=== PATIENT | male | born 1965 | race Caucasian/White ===

== ENCOUNTER 2018-01-13 12:39 | Emergency (ER) | payer OTHER ==
[~2018-01-13] VITALS: Ht 188 cm; Wt 127.0 kg
[~2018-01-13 12:39] MED LIST: AMLO5 PO; ASPI81CH PO; ATOR10 PO; BUME2 PO; CEPH500 PO; CLAR500CR; CLON.1 PO; DIAZ2 PO; FENO145 PO; FISH1000 PO; FOLI1 PO; HYDACE10B PO; HYDR10 PO; HYDRA25 PO; Hair, Skin & N1 EACH; Humalog100 UNIT/1; INSULANPEN SC; IRBE150 PO; Isosorbide Mono60 MG PO; LAMO100 PO; METO50 PO; NEBI10 PO; NIFE60ER PO; NIFE90ER PO; POTCHL20ER PO; ROSU10TA PO; TERA5 PO; TERB250 PO; TORSE20
[2018-01-13] MEDS ORDERED: SPIR25 PO (13:25)
[2018-01-13] MEDS ORDERED: ACET325 PO (14:05)
[2018-01-13] MEDS ORDERED: Humalog100 UNIT/1 (14:08)
[2018-01-13 14:11] LABS: BASOPHILS ABSOLUTE AUTO 0.03 K/mm3 (0.00-0.23); BASOPHILS PERCENT AUTO 0 % (0-2); EOSINOPHILS ABSOLUTE AUTO 0.21 K/mm3 (0.00-0.68); EOSINOPHILS PERCENT AUTO 3 % (0-6); Hematocrit 38.3 % (37.0-53.0); Hemoglobin 13.4 g/dL (13.5-17.5); IMMATURE GRAN ABSOLUTE AUTO 0.02 K/mm3 (0.00-0.10); IMMATURE GRAN PERCENT AUTO 0 % (0-1); LYMPHOCYTES ABSOLUTE AUTO 1.56 K/mm3 (0.84-5.20); LYMPHOCYTES PERCENT AUTO 23 % (21-46); MONOCYTES ABSOLUTE AUTO 0.73 K/mm3 (0.16-1.47); MONOCYTES PERCENT AUTO 11 % (4-13); Mean Corpuscular HGB 29.3 pg (26.0-34.0); Mean Corpuscular Volume 84 fL (80-100); Mean Platelet Volume 9.3 fL (9.1-12.4); NEUTROPHILS ABSOLUTE AUTO 4.29 K/mm3 (1.96-9.15); NEUTROPHILS PERCENT AUTO 63 % (41-73); Platelet Count 316 K/mm3 (150-400); RDW Coefficient Variation 12.9 % (11.7-14.2); Red Blood Cell Count 4.58 M/mm3 (4.30-5.90); White Blood Cell Count 6.84 K/mm3 (4.00-11.30)
[2018-01-13 14:30] LABS: Albumin, Blood 2.4 g/dL (3.4-5.0); Albumin/Globulin Ratio 0.6 (0.8-1.8); Bilirubin, Total 0.2 mg/dL (0.1-1.0); Bun/Creatinine Ratio 9.9 (12.0-20.0); Calcium, Blood 7.7 mg/dL (8.5-10.1); Creatinine, Blood 1.42 mg/dL (0.60-1.20); Globulin, Blood 3.8 g/dL (2.2-4.0); Potassium, Blood 2.8 mmol/L (3.5-5.5); Total Protein, Blood 6.2 g/dL (6.4-8.2); Troponin I 0.166 ng/mL (0.000-0.040)
[2018-01-13] MEDS ORDERED: Vistaril25 MG PO (16:37)
[2018-01-13] MEDS ORDERED: Triamcinolone A15 G2 EXT (16:37)
== END 2018-01-13 16:42 | disposition home or self-care (01) ==
LOC: ER 12:39
PROVIDERS: Emergency Medicine
DX: R60.0 Localized edema (principal); R21 Rash and other nonspecific skin eruption; E87.6 Hypokalemia; I11.0 Hypertensive heart disease with heart failure; I50.9 Heart failure, unspecified; E11.9 Type 2 diabetes mellitus without complications; F32.9 Major depressive disorder, single episode, unspecified; Z88.8 Allergy status to other drugs, medicaments and biological substances; Z79.899 Other long term (current) drug therapy; Z79.4 Long term (current) use of insulin
CPT/HCPCS: 36415; 71046; 80053; 83880; 84484; 85025; 93005; 93010; 96374; 99284; J0360

== ENCOUNTER 2019-04-05 11:26 | Emergency (ER) | payer OTHER ==
[~2019-04-05] VITALS: Ht 190.5 cm; Wt 131.1 kg
[~2019-04-05 11:26] MED LIST changes: +ACET325 PO; +SPIR25 PO; +Triamcinolone A15 G2 EXT; +Vistaril25 MG PO
[2019-04-05 11:55] LABS: BASOPHILS ABSOLUTE AUTO 0.03 K/mm3 (0.00-0.23); BASOPHILS PERCENT AUTO 0 % (0-2); EOSINOPHILS ABSOLUTE AUTO 0.12 K/mm3 (0.00-0.68); EOSINOPHILS PERCENT AUTO 2 % (0-6); Hematocrit 35.5 % (37.0-53.0); Hemoglobin 11.9 g/dL (13.5-17.5); IMMATURE GRAN ABSOLUTE AUTO 0.02 K/mm3 (0.00-0.10); IMMATURE GRAN PERCENT AUTO 0 % (0-1); LYMPHOCYTES ABSOLUTE AUTO 1.25 K/mm3 (0.84-5.20); LYMPHOCYTES PERCENT AUTO 18 % (21-46); MONOCYTES PERCENT AUTO 9 % (4-13); Mean Corpuscular HGB 29.1 pg (26.0-34.0); Mean Corpuscular HGB Conc 33.5 g/dL (31.5-36.5); Mean Corpuscular Volume 87 fL (80-100); Mean Platelet Volume 8.9 fL (9.1-12.4); NEUTROPHILS ABSOLUTE AUTO 5.05 K/mm3 (1.96-9.15); NEUTROPHILS PERCENT AUTO 71 % (41-73); Platelet Count 305 K/mm3 (150-400); RDW Coefficient Variation 12.9 % (11.7-14.2); RDW Standard Deviation 40.3 fL (35.1-46.3); Red Blood Cell Count 4.09 M/mm3 (4.30-5.90); White Blood Cell Count 7.07 K/mm3 (4.00-11.30)
[2019-04-05 12:17] LABS: Albumin, Blood 2.3 g/dL (3.4-5.0); Albumin/Globulin Ratio 0.6 (0.8-1.8); Bilirubin, Total 0.3 mg/dL (0.1-1.0); Bun/Creatinine Ratio 14.7 (12.0-20.0); Calcium, Blood 8.4 mg/dL (8.5-10.1); Creatinine, Blood 1.7 mg/dL (0.60-1.20); Globulin, Blood 3.6 g/dL (2.2-4.0); Potassium, Blood 4.1 mmol/L (3.5-5.5); Total Protein, Blood 5.9 g/dL (6.4-8.2)
== END 2019-04-05 14:38 | disposition home or self-care (01) ==
LOC: ER 11:26
PROVIDERS: Physician Assistant
DX: I50.9 Heart failure, unspecified (principal); I11.0 Hypertensive heart disease with heart failure; E11.9 Type 2 diabetes mellitus without complications; F32.9 Major depressive disorder, single episode, unspecified; Z88.8 Allergy status to other drugs, medicaments and biological substances; Z79.899 Other long term (current) drug therapy; Z79.4 Long term (current) use of insulin
CPT/HCPCS: 36415; 70450; 71046; 80053; 83880; 85025; 93005; 93010; 99285-25

== ENCOUNTER 2019-04-18 11:23 | Emergency (ER) | payer OTHER ==
[~2019-04-18] VITALS: Ht 193 cm; Wt 131.5 kg
[~2019-04-18 11:23] MED LIST changes: +FISH OIL 1,001000 MG PO; -FISH1000 PO; +Humalog100 UNIT/1 SC; +Hytrin1 MG PO; -TERA5 PO; -TORSE20; +TORSE20 PO
[2019-04-18 12:03] LABS: BASOPHILS ABSOLUTE AUTO 0.02 K/mm3 (0.00-0.23); BASOPHILS PERCENT AUTO 0 % (0-2); EOSINOPHILS ABSOLUTE AUTO 0.05 K/mm3 (0.00-0.68); EOSINOPHILS PERCENT AUTO 1 % (0-6); Hematocrit 40.4 % (37.0-53.0); Hemoglobin 13.4 g/dL (13.5-17.5); IMMATURE GRAN ABSOLUTE AUTO 0.03 K/mm3 (0.00-0.10); IMMATURE GRAN PERCENT AUTO 0 % (0-1); LYMPHOCYTES ABSOLUTE AUTO 0.76 K/mm3 (0.84-5.20); LYMPHOCYTES PERCENT AUTO 9 % (21-46); MONOCYTES PERCENT AUTO 7 % (4-13); Mean Corpuscular HGB 28.6 pg (26.0-34.0); Mean Corpuscular HGB Conc 33.2 g/dL (31.5-36.5); Mean Corpuscular Volume 86 fL (80-100); Mean Platelet Volume 9.3 fL (9.1-12.4); NEUTROPHILS PERCENT AUTO 82 % (41-73); Platelet Count 384 K/mm3 (150-400); RDW Coefficient Variation 12.8 % (11.7-14.2); RDW Standard Deviation 39.8 fL (35.1-46.3); Red Blood Cell Count 4.68 M/mm3 (4.30-5.90); White Blood Cell Count 8.06 K/mm3 (4.00-11.30)
[2019-04-18 12:17] LABS: International Normalized Ratio 0.96; Prothrombin Time Results 10.2 Sec (9.7-11.5)
[2019-04-18 12:23] LABS: Alanine Aminotransfer (ALT/SGP 40 U/L (12-78); Albumin, Blood 2.7 g/dL (3.4-5.0); Albumin/Globulin Ratio 0.7 (0.8-1.8); Alk Phos 55 U/L (50-136); Anion Gap 7 mmol/L (6-16); Aspartate Aminotrans (AST/SGOT 44 U/L (12-37); Bilirubin, Total 0.3 mg/dL (0.1-1.0); Blood Urea Nitrogen 25 mg/dL (8-24); Bun/Creatinine Ratio 19.2 (12.0-20.0); CO2, Blood 28 mmol/L (21-32); Calcium, Blood 9.2 mg/dL (8.5-10.1); Chloride, Blood 112 mmol/L (98-108); Glomerular Filtration Rate >60 (60-); Glucose, Blood 53 mg/dL (70-99); Potassium, Blood 3.8 mmol/L (3.5-5.5); Sodium, Blood 147 mmol/L (136-145); Total Protein, Blood 6.7 g/dL (6.4-8.2)
[2019-04-18 12:29] LABS: Source, Urine Clean Catch
[2019-04-18 12:34] LABS: Appearance, Urine Clear (Clear); Bilirubin, Urine Neg (Neg); Blood, Urine 4+ (Neg); Color, Urine Yellow (P-Yellow); Glucose Qualitative, Urine Neg (Neg); Ketones, Urine Neg (Neg); Leukocyte Esterase, Urine Neg (Neg); Nitrite, Urine Neg (Neg); Protein, Urine 3+ (Neg); Urobilinogen, Urine NORM (Normal)
[2019-04-18 12:46] LABS: White Blood Cells, Urine 0-2 /hpf (0-5)
[2019-04-18 12:47] LABS: Bacteria Not Seen /hpf; Squamous Epithelial Cells Not Seen /hpf (Few)
[2019-04-18] MEDS ORDERED: TORSE20 PO (12:57)
== END 2019-04-18 14:16 | disposition home or self-care (01) ==
LOC: ER 11:23
PROVIDERS: Emergency Medicine
DX: E11.649 Type 2 diabetes mellitus with hypoglycemia without coma (principal); Z86.73 Personal history of transient ischemic attack (TIA), and cerebral infarction without residual deficits; I11.0 Hypertensive heart disease with heart failure; I50.9 Heart failure, unspecified; Z88.8 Allergy status to other drugs, medicaments and biological substances; Z79.899 Other long term (current) drug therapy; Z79.4 Long term (current) use of insulin; F32.9 Major depressive disorder, single episode, unspecified
CPT/HCPCS: 36415; 70450; 71045; 80053; 81001; 82947; 85025; 85610; 85730; 93005; 93010; 96374; 99285-25; J7799

== ENCOUNTER 2020-01-05 00:13 | Inpatient (IN) | payer OTHER ==
[~2020-01-05] VITALS: Ht 190.5 cm; Wt 109.8 kg
[2020-01-05 00:46] LABS: BASOPHILS ABSOLUTE AUTO 0.02 K/mm3 (0.00-0.23); BASOPHILS PERCENT AUTO 0 % (0-2); EOSINOPHILS ABSOLUTE AUTO 0.01 K/mm3 (0.00-0.68); EOSINOPHILS PERCENT AUTO 0 % (0-6); Hematocrit 36.1 % (37.0-53.0); Hemoglobin 12.4 g/dL (13.5-17.5); IMMATURE GRAN ABSOLUTE AUTO 0.06 K/mm3 (0.00-0.10); IMMATURE GRAN PERCENT AUTO 1 % (0-1); LYMPHOCYTES ABSOLUTE AUTO 0.54 K/mm3 (0.84-5.20); LYMPHOCYTES PERCENT AUTO 5 % (21-46); MONOCYTES ABSOLUTE AUTO 0.59 K/mm3 (0.16-1.47); MONOCYTES PERCENT AUTO 6 % (4-13); Mean Corpuscular HGB 27.7 pg (26.0-34.0); Mean Corpuscular HGB Conc 34.3 g/dL (31.5-36.5); Mean Corpuscular Volume 81 fL (80-100); Mean Platelet Volume 9.9 fL (9.1-12.4); NEUTROPHILS ABSOLUTE AUTO 9.59 K/mm3 (1.96-9.15); NEUTROPHILS PERCENT AUTO 89 % (41-73); Platelet Count 302 K/mm3 (150-400); RDW Coefficient Variation 12.9 % (11.7-14.2); RDW Standard Deviation 37.8 fL (35.1-46.3); Red Blood Cell Count 4.47 M/mm3 (4.30-5.90); White Blood Cell Count 10.81 K/mm3 (4.00-11.30)
[2020-01-05 01:13] LABS: Albumin, Blood 2.1 g/dL (3.4-5.0); Albumin/Globulin Ratio 0.6 (0.8-1.8); Bilirubin, Total 0.5 mg/dL (0.1-1.0); Bun/Creatinine Ratio 14.6 (12.0-20.0); Calcium, Blood 8.3 mg/dL (8.5-10.1); Creatinine, Blood 2.74 mg/dL (0.60-1.20); Globulin, Blood 3.3 g/dL (2.2-4.0); Potassium, Blood 4.5 mmol/L (3.5-5.5); Total Protein, Blood 5.4 g/dL (6.4-8.2); Troponin I 0.16 ng/mL (0.000-0.040)
[2020-01-05 01:20] LABS: Beta-hydroxybutyrate 17.7 mg/dL (0.2-2.8)
--- NOTE | 2020-01-05 03:36 | NUR ---
ASSUMED CARE @0230. PT. A&O, RESTING QUIETLY IN STRETCHER. NO APPARENT DISTRESS NOTED. PT. ON HOLD FOR MEDICAL ADMIT. DENIES ANY PAIN OR DISCOMFORT AT THIS TIME. VSS. CALL LIGHT WITHIN REACH AND SIDE RAILS UPX2. WILL CONT TO MONITOR.
[2020-01-05 09:06] LABS: Hemoglobin 11.6 g/dL (13.5-17.5); Mean Corpuscular HGB 27.8 pg (26.0-34.0); Mean Corpuscular HGB Conc 34.1 g/dL (31.5-36.5); Mean Corpuscular Volume 81 fL (80-100); Mean Platelet Volume 9.7 fL (9.1-12.4); Platelet Count 304 K/mm3 (150-400); RDW Coefficient Variation 13.2 % (11.7-14.2); RDW Standard Deviation 38.4 fL (35.1-46.3); Red Blood Cell Count 4.18 M/mm3 (4.30-5.90); White Blood Cell Count 8.51 K/mm3 (4.00-11.30)
[2020-01-05 09:30] LABS: Albumin/Globulin Ratio 0.6 (0.8-1.8); Bilirubin, Total 0.4 mg/dL (0.1-1.0); Bun/Creatinine Ratio 14.2 (12.0-20.0); Calcium, Blood 8.2 mg/dL (8.5-10.1); Creatinine, Blood 2.74 mg/dL (0.60-1.20); Globulin, Blood 3.3 g/dL (2.2-4.0); Potassium, Blood 3.5 mmol/L (3.5-5.5); Total Protein, Blood 5.3 g/dL (6.4-8.2); Troponin I 0.291 ng/mL (0.000-0.040)
[2020-01-05 09:47] LABS: Creatine Kinase MB 4.4 ng/mL (0.0-3.6); Creatine Kinase MB Index 0.8 (0.0-4.0)
[2020-01-05 10:43] LABS: Source, Urine Clean Catch
[2020-01-05 10:48] LABS: Bilirubin, Urine Neg (Neg); Blood, Urine 3+ (Neg); Glucose Qualitative, Urine 4+ (Neg); Ketones, Urine Neg (Neg); Leukocyte Esterase, Urine Neg (Neg); Nitrite, Urine Neg (Neg); Protein, Urine 4+ (Neg); Specific Gravity, Urine 1.015 (1.003-1.022); Urobilinogen, Urine NORM (Normal)
[2020-01-05 11:06] LABS: Appearance, Urine Clear (Clear); Color, Urine Yellow (P-Yellow)
[2020-01-05 11:08] LABS: Bacteria Rare /hpf; Squamous Epithelial Cells Rare /hpf (Few); White Blood Cells, Urine 0-2 /hpf (0-5)
[2020-01-05] MEDS ORDERED: ATORVASTATIN CA40 M1 PO (11:40)
[2020-01-05] MEDS ORDERED: Furosemide80 MG PO (11:40)
[2020-01-05] MEDS ORDERED: LOSARTAN POTASS50 M1 PO (11:41)
[2020-01-05] MEDS ORDERED: Glimepiride2 MG PO (11:41)
[2020-01-05] MEDS ORDERED: MICROZIDE12.5 M1 PO (11:41)
[2020-01-05] MEDS ORDERED: ISOSORBIDE MONO60 MG PO (11:41)
[2020-01-05] MEDS ORDERED: PROCARDIA XL90 MG PO (11:42)
[2020-01-05] MEDS ORDERED: Potassium Chlo20 ME1 PO (11:42)
[2020-01-05] MEDS ORDERED: TERA5 PO (11:43)
[2020-01-05] MEDS ORDERED: Byetta10 MCG/0.0 SC (11:43)
[2020-01-05] MEDS ORDERED: Novolin R100 UNIT/M SC (11:47)
[2020-01-05] MEDS ORDERED: Vistaril50 MG PO (11:48)
[2020-01-05] MEDS ORDERED: Vitamin D2000 UNIT PO (11:49)
--- NOTE | 2020-01-05 11:57 | NUR ---
Echocardiogram completed.
--- NOTE | 2020-01-05 12:32 | NUR ---
PT ADMITTED PT ADMITTED AT 1150. PT IN STABLE CONDITION WITH VSS. PT ORIENTED TO ROOM. CALL LIGHT IN REACH. FAMILY AT BEDSIDE. WILL CONTINUE TO MONITOR.
--- NOTE | 2020-01-05 14:11 | NUR ---
On Sunday January 05, 2020 I asked patient for permission to give care as a student development specialist on January 06, 2020. Patient agreed to care for January 06, 2020.
--- NOTE | 2020-01-05 16:17 | NUR ---
BP/PT ADVOCATE/MRI NEEDS/STRIGHT CATH PT BROTHER IN TO SEE PT AND STATED HE FELT PT CONDITION WORSENED. DR. CANO NOTIFIED AND NEW BP TAKEN. SBP 106. EDUCATED PT & FAMILY ABOUT CAUSE OF POSSIBLE STROKE AND AFFECTS OF HYPOTENSION AFTER STROKE. 250ML NS BLOUS GIVEN PER DR. CANO. CALL MADE TO AFTER BOLUS. NO CHANGE WITH SBP AT 106. HIGHWAY MAINTAINER STATED MRI CAN NOT BE COMPLETED UNTIL LOOP RECORDER INFO IS RECIEVED AND TRANSFERED PRIOR TO PROCEDURE. PT BROTHER UPSET WITH DELAY OF CARE. PT ADVOCATE CONTACTED FOR PATIENT. DR. CANO NOTIFIED THAT BP REMAINED UNCHANGED AFTER BOLUS. NS INFUSION INCREASED TO 125ML/HR. AYESHA HOSE APPLIED TO PT. BLADDER SCAN COMPLETED REVEALING 454CC. PT STATES NO NEED TO VOID. DR. CANO ORDERED TO BLADDER SCAN PRN AND STRAIGHT CATH OVER 400CC. STRAIGHT CATH COMPLETED WITH 350 OUTPUT. PT BROTHER TO RUN TO PATIENTS HOUSE TO RECIEVE LOOP RECORDER TRANSMITTER. IMAGING REQUESTING RECORDS FROM [facility] WHO PLACED RECORDER.
[2020-01-05 17:02] LABS: Troponin I 0.252 ng/mL (0.000-0.040)
[2020-01-05 17:21] LABS: Creatine Kinase MB 3.7 ng/mL (0.0-3.6); Creatine Kinase MB Index 0.9 (0.0-4.0)
[2020-01-05] MEDS ORDERED: BASAGLAR K100 UNIT/2 SC (19:53)
--- NOTE | 2020-01-06 04:35 | NUR ---
01/06/20 0435 REPOSITIONED AND BRIEF CHANGED DUE TO MOISTURE. C/O LEFT LEG MUSCLE SPASM. ROM MOVEMENTS DONE BY RN AND PT STATES "THAT FEELS BETTER NOW." CPAP ON ALL NIGHT. VITALS STABLE. VOIDING QUANITY SUFFICIENT. NEURO. STATUS UNCHANGED FROM START OF SHIFT.
[2020-01-06 05:36] LABS: BASOPHILS ABSOLUTE AUTO 0.02 K/mm3 (0.00-0.23); BASOPHILS PERCENT AUTO 0 % (0-2); EOSINOPHILS ABSOLUTE AUTO 0.17 K/mm3 (0.00-0.68); EOSINOPHILS PERCENT AUTO 3 % (0-6); Hematocrit 33.2 % (37.0-53.0); IMMATURE GRAN PERCENT AUTO 0 % (0-1); LYMPHOCYTES ABSOLUTE AUTO 2.28 K/mm3 (0.84-5.20); LYMPHOCYTES PERCENT AUTO 38 % (21-46); MONOCYTES ABSOLUTE AUTO 0.39 K/mm3 (0.16-1.47); MONOCYTES PERCENT AUTO 6 % (4-13); Mean Corpuscular HGB 27.6 pg (26.0-34.0); Mean Corpuscular HGB Conc 33.1 g/dL (31.5-36.5); Mean Corpuscular Volume 83 fL (80-100); Mean Platelet Volume 9.6 fL (9.1-12.4); NEUTROPHILS ABSOLUTE AUTO 3.19 K/mm3 (1.96-9.15); NEUTROPHILS PERCENT AUTO 53 % (41-73); Platelet Count 265 K/mm3 (150-400); RDW Coefficient Variation 13.2 % (11.7-14.2); RDW Standard Deviation 40.6 fL (35.1-46.3); Red Blood Cell Count 3.98 M/mm3 (4.30-5.90); White Blood Cell Count 6.05 K/mm3 (4.00-11.30)
[2020-01-06 06:02] LABS: Albumin, Blood 1.8 g/dL (3.4-5.0); Anion Gap 6 mmol/L (6-16); Blood Urea Nitrogen 35 mg/dL (8-24); Bun/Creatinine Ratio 12.5 (12.0-20.0); CO2, Blood 28 mmol/L (21-32); CPK Creatine Kinase 460 U/L (39-308); Calcium, Blood 7.7 mg/dL (8.5-10.1); Chloride, Blood 108 mmol/L (98-108); Creatinine, Blood 2.81 mg/dL (0.60-1.20); Glomerular Filtration Rate 25 (60-); Glucose, Blood 168 mg/dL (70-99); Phosphorus, Blood 4.3 mg/dL (2.5-4.9); Potassium, Blood 3.4 mmol/L (3.5-5.5); Sodium, Blood 142 mmol/L (136-145)
--- NOTE | 2020-01-06 12:06 | NUR ---
PT REQUESTING DNR STATUS PT REQUESTING DNR STATUS. PT COMPLETELY A&O. DR. DRAPER NOTIFIED. WILL CONTINUE TO MONITOR.
[2020-01-06 16:50] LABS: C-REACTIVE PROTEIN, EXT RANGE <0.290 mg/dL (0.000-0.300)
--- NOTE | 2020-01-06 18:04 | NUR ---
SHIFT SUMMARY PT HAD MRI COMPLETED TODAY. STROKE CONFIRMED. CARDIOLOGY AND NEPHROLOGY CONSULTED. SBP UP TO THE 140S. IV FLUIDS STOPPED. PT SEEN BY [facility]. FLOWERS & JAIME THICK FOODS TOLERATED WELL. PT CONT/INC THROUGHOUT SHIFT. NO PROBLEMS WITH RETENTION. RENAL ULTRASOUND COMPLETED THIS SHIFT. RESULTS PENDING. NO OTHER CHANGES IN ASSESSMENT AT THIS TIME. VSS. WILL CONTINUE TO MONITOR UNTIL TURNOVER IS COMPLETE.
--- NOTE | 2020-01-07 05:10 | NUR ---
01/07/20 0510 AWAKENED FOR AM LABWORK. CHEERFUL AND DENIES ANY S/S OR DISCOMFORT AT THIS TIME. CONDOM CATHETER APPLIED PER PT REQUEST HE HAD SEVERAL EPISODES OF SPILLING URINE. THIS AM HE HAD AROUND 600 ML IN CATHETER BAG. BLOOD PRESSURE HAS FLUCTUATED UP AND DOWN THIS SHIFT. SEE MAR FOR MEDS GIVEN.
[2020-01-07 05:21] LABS: BASOPHILS ABSOLUTE AUTO 0.03 K/mm3 (0.00-0.23); BASOPHILS PERCENT AUTO 0 % (0-2); EOSINOPHILS ABSOLUTE AUTO 0.16 K/mm3 (0.00-0.68); EOSINOPHILS PERCENT AUTO 2 % (0-6); Hematocrit 37.4 % (37.0-53.0); Hemoglobin 12.3 g/dL (13.5-17.5); IMMATURE GRAN ABSOLUTE AUTO 0.02 K/mm3 (0.00-0.10); IMMATURE GRAN PERCENT AUTO 0 % (0-1); LYMPHOCYTES ABSOLUTE AUTO 1.98 K/mm3 (0.84-5.20); LYMPHOCYTES PERCENT AUTO 27 % (21-46); MONOCYTES ABSOLUTE AUTO 0.56 K/mm3 (0.16-1.47); MONOCYTES PERCENT AUTO 8 % (4-13); Mean Corpuscular HGB 27.2 pg (26.0-34.0); Mean Corpuscular HGB Conc 32.9 g/dL (31.5-36.5); Mean Corpuscular Volume 83 fL (80-100); Mean Platelet Volume 9.7 fL (9.1-12.4); NEUTROPHILS ABSOLUTE AUTO 4.71 K/mm3 (1.96-9.15); NEUTROPHILS PERCENT AUTO 63 % (41-73); Platelet Count 305 K/mm3 (150-400); RDW Coefficient Variation 13.4 % (11.7-14.2); RDW Standard Deviation 40.1 fL (35.1-46.3); Red Blood Cell Count 4.53 M/mm3 (4.30-5.90); White Blood Cell Count 7.46 K/mm3 (4.00-11.30)
[2020-01-07 05:44] LABS: Anion Gap 6 mmol/L (6-16); Blood Urea Nitrogen 32 mg/dL (8-24); Bun/Creatinine Ratio 12.4 (12.0-20.0); CO2, Blood 27 mmol/L (21-32); Calcium, Blood 8.4 mg/dL (8.5-10.1); Chloride, Blood 111 mmol/L (98-108); Creatinine, Blood 2.58 mg/dL (0.60-1.20); Glomerular Filtration Rate 28 (60-); Glucose, Blood 150 mg/dL (70-99); Magnesium, Blood 2.2 mg/dL (1.6-2.4); Phosphorus, Blood 3.7 mg/dL (2.5-4.9); Potassium, Blood 3.5 mmol/L (3.5-5.5); Sodium, Blood 144 mmol/L (136-145)
--- NOTE | 2020-01-07 17:33 | NUR ---
Pt visit this afternoon. Pt is A&OX4 and denies pain at this time. Pt reports he would like to complete an advanced directive. Educated Pt on life sustaining measures including risk factors. Educated on each section to complete and the importance for considering a healthcare arborist representative. Pt reports he does not want to appoint a healthcare arborist representative. Assisted Pt in completing advanced directive. Pt reports no other concerns at this time. Called and spoke with [facility]. She reports plan to notarize Pt's AD first thing in the morning. Palliative Care will remain available.
--- NOTE | 2020-01-07 18:06 | NUR ---
SHIFT SUMMARY PT HAS BEEN ALERT AND ORIENTED THROUGHOUT THIS SHIFT. PT HAS LITTLE TO NO MOVEMENT OF LEFT SIDE, ONLY ABLE TO APPLY DOWNWARD PRESSURE. PT HAD CONDOM CATHETER ON PER REQUEST, WHICH CONITINUOUSLY FELL OFF. PT WORKED WITH PT/OT THIS MORNING. PT'S BROTHER IN THE ROOM TO VISIT THIS AFTERNOON. PT SITTING UP IN BED EATING DINNER.
--- NOTE | 2020-01-08 04:23 | NUR ---
SHIFT SUMMARY PT HAS HAD NO ACUTE CHANGES THIS SHIFT, NO C/O ANY KIND, MEDICATED FOR ELEVATED BP 3X THIS SHIFT (1912- 194/78; 2054- 174/65; 354 165/70), PT PT BEDRESTING AT THIS TIME, CALL LIGHT IN REACH, WILL CONT TO MONITOR UNTIL REPORT GIVEN TO TRA ALEXANDER.
[2020-01-08 07:09] LABS: Albumin, Blood 1.9 g/dL (3.4-5.0); Anion Gap 7 mmol/L (6-16); Blood Urea Nitrogen 30 mg/dL (8-24); CO2, Blood 27 mmol/L (21-32); Calcium, Blood 8.1 mg/dL (8.5-10.1); Chloride, Blood 109 mmol/L (98-108); Creatinine, Blood 2.49 mg/dL (0.60-1.20); Glomerular Filtration Rate 29 (60-); Glucose, Blood 181 mg/dL (70-99); Phosphorus, Blood 3.8 mg/dL (2.5-4.9); Potassium, Blood 3.6 mmol/L (3.5-5.5); Sodium, Blood 143 mmol/L (136-145)
[2020-01-08] MEDS ORDERED: ACET325 PO (08:59)
[2020-01-08] MEDS ORDERED: Aspirin EC81 MG (09:05)
[2020-01-08] MEDS ORDERED: Klor-Con 1010 MEQ PO (09:14)
--- NOTE | 2020-01-08 17:53 | NUR ---
PT ALERT AND ORIENTED X4 THIS SHIFT. PT COOPERATIVE WITH CARE. PT HAS IMPROVEMENT OF MOVEMENT ON THE LEFT SIDE, TO SLIGHT GROSS MOVEMENT FROM ABLE TO APPLY DOWNWARD PRESSURE ON SHIFT YESTERDAY. PT TO DISCHARGE TO REHAB FACILITY TOMORROW, AWAITING TRANSPORTATION. PT'S BROTHER IN THE ROOM THIS AFTERNOON, HELPING TO FIND PLACEMENT FOR PT. PT CURRENTLY UP IN BED EATING DINNER.
--- NOTE | 2020-01-09 04:01 | NUR ---
SHIFT SUMMARY PT HAS HAD NO ACUTE CHANGES THIS SHIFT, MEDICATED 1X FOR LOOSE STOOL, NO OTHER C/O ANY KIND. PT SLEPT T/O SHIFT AND IS SLEEPING AT THIS TIME, CALL LIGHT IN REACH, WILL CONT TO MONITOR UNTIL REPORT GIVEN TO DAY RN.
[2020-01-09 05:23] LABS: BASOPHILS ABSOLUTE AUTO 0.02 K/mm3 (0.00-0.23); BASOPHILS PERCENT AUTO 0 % (0-2); EOSINOPHILS ABSOLUTE AUTO 0.24 K/mm3 (0.00-0.68); EOSINOPHILS PERCENT AUTO 3 % (0-6); Hemoglobin 13.5 g/dL (13.5-17.5); IMMATURE GRAN ABSOLUTE AUTO 0.02 K/mm3 (0.00-0.10); IMMATURE GRAN PERCENT AUTO 0 % (0-1); LYMPHOCYTES ABSOLUTE AUTO 2.13 K/mm3 (0.84-5.20); LYMPHOCYTES PERCENT AUTO 28 % (21-46); MONOCYTES ABSOLUTE AUTO 0.62 K/mm3 (0.16-1.47); MONOCYTES PERCENT AUTO 8 % (4-13); Mean Corpuscular HGB 27.8 pg (26.0-34.0); Mean Corpuscular HGB Conc 32.9 g/dL (31.5-36.5); Mean Corpuscular Volume 85 fL (80-100); Mean Platelet Volume 9.7 fL (9.1-12.4); NEUTROPHILS ABSOLUTE AUTO 4.71 K/mm3 (1.96-9.15); NEUTROPHILS PERCENT AUTO 61 % (41-73); Platelet Count 361 K/mm3 (150-400); RDW Coefficient Variation 13.3 % (11.7-14.2); Red Blood Cell Count 4.85 M/mm3 (4.30-5.90); White Blood Cell Count 7.74 K/mm3 (4.00-11.30)
[2020-01-09 05:58] LABS: Albumin, Blood 2.2 g/dL (3.4-5.0); Anion Gap 7 mmol/L (6-16); Blood Urea Nitrogen 32 mg/dL (8-24); Bun/Creatinine Ratio 12.6 (12.0-20.0); CO2, Blood 27 mmol/L (21-32); Calcium, Blood 8.6 mg/dL (8.5-10.1); Chloride, Blood 109 mmol/L (98-108); Creatinine, Blood 2.53 mg/dL (0.60-1.20); Glomerular Filtration Rate 28 (60-); Glucose, Blood 156 mg/dL (70-99); Phosphorus, Blood 4.2 mg/dL (2.5-4.9); Potassium, Blood 3.7 mmol/L (3.5-5.5); Sodium, Blood 143 mmol/L (136-145)
--- NOTE | 2020-01-09 09:25 | NUR ---
DISCHARGE NOTE- PT DISCHARGED TO INPATIENT REHAB UNIT. PT WAS TAKEN VIA GURNEY TRANSPORT. IV DC'D AT THE TIME OF DISCHARGE. ATTEMPTED TO CALL REPORT, THERE WAS NO ANSWER IN 3 MINUTES OF RINGING. WILL REATTEMPT LATER. PT ALERT AND ORIENTED ALL MORNING MEDICATIONS WERE GIVEN PRIOR TO PT DISCHARGE. PT ATE A FULL BREAKFAST PRIOR TO DISCHARGE.
--- NOTE | 2020-01-09 11:31 | NUR ---
REATTEMPTED TO CALL REPORT WITH THE NUMBER PROVIDED BY DISCHARGE PLANNING STILL NO ANSWER. WILL ATTEMPT AGAIN LATER. WILL TRY TO FIND ALTERNATE CONTACT INFORMATION.
[2020-01-09 15:11] LABS: A/G RATIO 1.1 (0.7-1.7); ALBUMIN 2.4 g/dL (2.9-4.4); ALPHA-1-GLOBULIN 0.1 g/dL (0.0-0.4); ALPHA-2-GLOBULIN 1.2 g/dL (0.4-1.0); BETA GLOBULIN 0.7 g/dL (0.7-1.3); GAMMA GLOBULIN 0.4 g/dL (0.4-1.8); GLOBULIN, TOTAL 2.4 g/dL (2.2-3.9); IMMUNOGLOBULIN A, QN, SERUM 261 mg/dL (90-386); IMMUNOGLOBULIN G, QN, SERUM 610 mg/dL (700-1600); IMMUNOGLOBULIN M, QN, SERUM 61 mg/dL (20-172); M-SPIKE Not Observed g/dL (Not Observed); PROTEIN, TOTAL, SERUM 4.8 g/dL (6.0-8.5)
== END 2020-01-09 09:22 | DRG 65 ==
LOC: ER 00:13 → ERHOLD 01:41 → MEDS 01:41 → ENPENDDIS 01-08 13:33 → MEDS 01-08 22:18
PROVIDERS: Family Medicine; Internal Medicine; Internal Medicine Cardiovascular Disease; Physician Assistant; ADMIT Internal Medicine
DX: I63.9 Cerebral infarction, unspecified (principal); N17.9 Acute kidney failure, unspecified; M62.82 Rhabdomyolysis; R29.810 Facial weakness; R47.81 Slurred speech; E11.65 Type 2 diabetes mellitus with hyperglycemia; N18.3 Chronic kidney disease, stage 3 (moderate); E86.0 Dehydration; E11.22 Type 2 diabetes mellitus with diabetic chronic kidney disease; I12.9 Hypertensive chronic kidney disease with stage 1 through stage 4 chronic kidney disease, or unspecified chronic kidney disease; Z79.82 Long term (current) use of aspirin; Z79.02 Long term (current) use of antithrombotics/antiplatelets; E87.6 Hypokalemia; G47.33 Obstructive sleep apnea (adult) (pediatric); E11.21 Type 2 diabetes mellitus with diabetic nephropathy; I16.0 Hypertensive urgency; R47.1 Dysarthria and anarthria; Z79.4 Long term (current) use of insulin
CPT/HCPCS: 36415; 70450; 70551; 71045; 76770; 80053; 80069; 81001; 82010; 82550; 82553; 82784; 82947; 83516; 83735; 83880; 83883; 84155; 84165; 84443; 84484; 85025; 85027; 85651; 86140; 86334; 92507; 92523; 92526; 92610; 93005; 93010; 93306; 93356; 93880; 93975; 94660; 94762; 96372-59; 97110; 97112; 97163; 97166; 97530; 97535; 99285-25; A9270; A9270-GY; J0360; J1650; J7030

== ENCOUNTER → 2020-08-09 | Outpatient (CLI) | payer OTHER ==
[~2020-08-09] MED LIST changes: +ATORVASTATIN CA40 M1 PO; +Aspirin EC81 MG; +BASAGLAR K100 UNIT/2 SC; +Byetta10 MCG/0.0 SC; +Furosemide80 MG PO; +Glimepiride2 MG PO; +ISOSORBIDE MONO60 MG PO; +Klor-Con 1010 MEQ PO; +LOSARTAN POTASS50 M1 PO; +MICROZIDE12.5 M1 PO; +Novolin R100 UNIT/M SC; +PROCARDIA XL90 MG PO; +Potassium Chlo20 ME1 PO; +TERA5 PO; +Vistaril50 MG PO; +Vitamin D2000 UNIT PO
[2020-08-09 05:25] LABS: Bun/Creatinine Ratio 22.9 (12.0-20.0); Calcium, Blood 8.2 mg/dL (8.5-10.1); Creatinine, Blood 2.05 mg/dL (0.60-1.20); Potassium, Blood 4.1 mmol/L (3.5-5.5)
== END | disposition home or self-care (01) ==
LOC: LAB UVN 05:09 → EDSTATUS 11:02
PROVIDERS: Family Medicine
DX: I10 Essential (primary) hypertension (principal)
CPT/HCPCS: 80048

== ENCOUNTER → 2020-08-10 | Outpatient (CLI) | payer OTHER ==
[2020-08-10 20:08] LABS: Bun/Creatinine Ratio 24.7 (12.0-20.0); Calcium, Blood 8.7 mg/dL (8.5-10.1); Creatinine, Blood 1.94 mg/dL (0.60-1.20); Potassium, Blood 4.5 mmol/L (3.5-5.5)
== END | disposition home or self-care (01) ==
LOC: EDSTATUS 11:04 → LAB UVN 18:54
PROVIDERS: Family Medicine
DX: E11.319 Type 2 diabetes mellitus with unspecified diabetic retinopathy without macular edema (principal); E11.22 Type 2 diabetes mellitus with diabetic chronic kidney disease; N18.4 Chronic kidney disease, stage 4 (severe)
CPT/HCPCS: 80048

== ENCOUNTER → 2020-08-14 | Outpatient (CLI) | payer OTHER | END | disposition home or self-care (01) | LOC: LAB UVN 05:08 → EDSTATUS 11:24 | DX: I50.32 Chronic diastolic (congestive) heart failure (principal) | CPT/HCPCS: 83880 ==

== ENCOUNTER → 2020-08-23 | Outpatient (CLI) | payer OTHER ==
[2020-08-24 06:18] LABS: Albumin, Blood 2.9 g/dL (3.4-5.0); Anion Gap 6 mmol/L (6-16); Blood Urea Nitrogen 50 mg/dL (8-24); Bun/Creatinine Ratio 22.5 (12.0-20.0); CO2, Blood 25 mmol/L (21-32); Calcium, Blood 8.1 mg/dL (8.5-10.1); Chloride, Blood 112 mmol/L (98-108); Creatinine, Blood 2.22 mg/dL (0.60-1.20); Glomerular Filtration Rate 31 (60-); Glucose, Blood 209 mg/dL (70-99); Phosphorus, Blood 3.7 mg/dL (2.5-4.9); Potassium, Blood 3.5 mmol/L (3.5-5.5); Sodium, Blood 143 mmol/L (136-145)
== END | disposition home or self-care (01) ==
LOC: LAB UVN 00:19 → EDSTATUS 08-25 14:55
PROVIDERS: Family Medicine
DX: I11.0 Hypertensive heart disease with heart failure (principal); I50.32 Chronic diastolic (congestive) heart failure; I12.9 Hypertensive chronic kidney disease with stage 1 through stage 4 chronic kidney disease, or unspecified chronic kidney disease; N18.9 Chronic kidney disease, unspecified
CPT/HCPCS: 80069

== ENCOUNTER → 2020-09-28 | Outpatient (CLI) | payer OTHER ==
[~2020-09-28] MED LIST changes: +ACET500 PO; +ATOR40TA PO; +BASAGLAR K100 UNIT/1 SC; +CARV25 PO; +CLOP75 PO; +Cymbalta20 MG PO; +FARXIGA5 MG PO; +FURO80 PO; +Florastor250 MG PO; +GABA100 PO; +HYDR100 PO; +LOSA50 PO; +MELA3 PO; +ONDA4ODT MM; +Plavix75 MG PO
[2020-09-28 22:04] LABS: BASOPHILS ABSOLUTE AUTO 0.03 K/mm3 (0.00-0.23); BASOPHILS PERCENT AUTO 1 % (0-2); EOSINOPHILS ABSOLUTE AUTO 0.27 K/mm3 (0.00-0.68); EOSINOPHILS PERCENT AUTO 4 % (0-6); Hematocrit 30.3 % (37.0-53.0); Hemoglobin 9.7 g/dL (13.5-17.5); IMMATURE GRAN ABSOLUTE AUTO 0.02 K/mm3 (0.00-0.10); IMMATURE GRAN PERCENT AUTO 0 % (0-1); LYMPHOCYTES ABSOLUTE AUTO 1.23 K/mm3 (0.84-5.20); LYMPHOCYTES PERCENT AUTO 20 % (21-46); MONOCYTES ABSOLUTE AUTO 0.63 K/mm3 (0.16-1.47); MONOCYTES PERCENT AUTO 10 % (4-13); Mean Corpuscular HGB 28.2 pg (26.0-34.0); Mean Corpuscular Volume 88 fL (80-100); Mean Platelet Volume 10.3 fL (9.1-12.4); NEUTROPHILS ABSOLUTE AUTO 4.12 K/mm3 (1.96-9.15); NEUTROPHILS PERCENT AUTO 65 % (41-73); Platelet Count 267 K/mm3 (150-400); RDW Coefficient Variation 12.6 % (11.7-14.2); RDW Standard Deviation 40.3 fL (35.1-46.3); Red Blood Cell Count 3.44 M/mm3 (4.30-5.90)
[2020-09-28 22:16] LABS: Albumin, Blood 3.3 g/dL (3.4-5.0); Albumin/Globulin Ratio 0.9 (0.8-1.8); Bilirubin, Total 0.3 mg/dL (0.1-1.0); Bun/Creatinine Ratio 25.2 (12.0-20.0); Calcium, Blood 8.7 mg/dL (8.5-10.1); Creatinine, Blood 2.3 mg/dL (0.60-1.20); Globulin, Blood 3.7 g/dL (2.2-4.0); Phosphorus, Blood 5.2 mg/dL (2.5-4.9); Potassium, Blood 4.1 mmol/L (3.5-5.5)
[2020-10-01 14:07] LABS: IMMUNOGLOBULIN A, QN, SERUM 240 mg/dL (90-386); IMMUNOGLOBULIN G, QN, SERUM 1103 mg/dL (603-1613); IMMUNOGLOBULIN M, QN, SERUM 66 mg/dL (20-172)
== END | disposition home or self-care (01) ==
LOC: EDSTATUS 11:42 → LAB UVN 18:35
PROVIDERS: Family Medicine
DX: E11.49 Type 2 diabetes mellitus with other diabetic neurological complication (principal)
CPT/HCPCS: 80053; 82306; 83970; 84100; 85025; 86334

== ENCOUNTER → 2020-09-29 | Outpatient (CLI) | payer OTHER ==
[2020-09-29 17:11] LABS: Creatinine, Urine Random 61.3 mg/dL (27.00-270.00)
== END | disposition home or self-care (01) ==
LOC: EDSTATUS 11:43 → LAB UVN 15:44
PROVIDERS: Family Medicine
DX: R80.9 Proteinuria, unspecified (principal); R77.9 Abnormality of plasma protein, unspecified; R94.4 Abnormal results of kidney function studies
CPT/HCPCS: 82570; 84156

== ENCOUNTER → 2020-10-21 | Outpatient (CLI) | payer OTHER ==
[2020-10-21 06:12] LABS: Albumin, Blood 3.6 g/dL (3.4-5.0); Anion Gap 8 mmol/L (6-16); Blood Urea Nitrogen 116 mg/dL (8-24); Bun/Creatinine Ratio 40.7 (12.0-20.0); CO2, Blood 22 mmol/L (21-32); Calcium, Blood 8.8 mg/dL (8.5-10.1); Chloride, Blood 109 mmol/L (98-108); Creatinine, Blood 2.85 mg/dL (0.60-1.20); Glomerular Filtration Rate 25 (60-); Glucose, Blood 230 mg/dL (70-99); Phosphorus, Blood 6.6 mg/dL (2.5-4.9); Potassium, Blood 5.6 mmol/L (3.5-5.5); Sodium, Blood 139 mmol/L (136-145)
== END | disposition home or self-care (01) ==
LOC: LAB UVN 05:00 → EDSTATUS 14:57
PROVIDERS: Family Medicine
DX: N18.32 Chronic kidney disease, stage 3b (principal)
CPT/HCPCS: 80069

== ENCOUNTER → 2020-12-13 | Outpatient (CLI) | payer OTHER ==
[~2020-12-13] MED LIST changes: +FERSU300 PO; +JUVEN PACKET1 EAC3; +METO5 PO; +POTA10T PO; +TRAM50 PO
[2020-12-14 06:33] LABS: BASOPHILS ABSOLUTE AUTO 0.02 K/mm3 (0.00-0.23); BASOPHILS PERCENT AUTO 0 % (0-2); EOSINOPHILS ABSOLUTE AUTO 0.17 K/mm3 (0.00-0.68); EOSINOPHILS PERCENT AUTO 3 % (0-6); Hematocrit 29.4 % (37.0-53.0); Hemoglobin 9.8 g/dL (13.5-17.5); IMMATURE GRAN ABSOLUTE AUTO 0.03 K/mm3 (0.00-0.10); IMMATURE GRAN PERCENT AUTO 1 % (0-1); LYMPHOCYTES ABSOLUTE AUTO 1.06 K/mm3 (0.84-5.20); LYMPHOCYTES PERCENT AUTO 20 % (21-46); MONOCYTES ABSOLUTE AUTO 0.45 K/mm3 (0.16-1.47); MONOCYTES PERCENT AUTO 9 % (4-13); Mean Corpuscular HGB 28.9 pg (26.0-34.0); Mean Corpuscular HGB Conc 33.3 g/dL (31.5-36.5); Mean Corpuscular Volume 87 fL (80-100); Mean Platelet Volume 9.9 fL (9.1-12.4); NEUTROPHILS ABSOLUTE AUTO 3.55 K/mm3 (1.96-9.15); NEUTROPHILS PERCENT AUTO 67 % (41-73); Platelet Count 323 K/mm3 (150-400); RDW Coefficient Variation 13.3 % (11.7-14.2); RDW Standard Deviation 41.6 fL (35.1-46.3); Red Blood Cell Count 3.39 M/mm3 (4.30-5.90); White Blood Cell Count 5.28 K/mm3 (4.00-11.30)
[2020-12-14 07:00] LABS: Percent Saturation 33.2 % (20.0-50.0)
[2020-12-14 07:02] LABS: Albumin, Blood 3.2 g/dL (3.4-5.0); Anion Gap 9 mmol/L (6-16); Blood Urea Nitrogen 96 mg/dL (8-24); Bun/Creatinine Ratio 34.8 (12.0-20.0); CO2, Blood 20 mmol/L (21-32); Chloride, Blood 106 mmol/L (98-108); Creatinine, Blood 2.76 mg/dL (0.60-1.20); Glomerular Filtration Rate 25 (60-); Glucose, Blood 267 mg/dL (70-99); Phosphorus, Blood 4.7 mg/dL (2.5-4.9); Sodium, Blood 135 mmol/L (136-145)
== END | disposition home or self-care (01) ==
LOC: LAB UVN 06:23
PROVIDERS: Family Medicine
DX: N18.32 Chronic kidney disease, stage 3b (principal)
CPT/HCPCS: 80069; 82728; 83540; 83550; 85025

== ENCOUNTER → 2020-12-16 | Outpatient (CLI) | payer OTHER ==
[2020-12-16 06:29] LABS: Anion Gap 8 mmol/L (6-16); Blood Urea Nitrogen 95 mg/dL (8-24); Bun/Creatinine Ratio 33.2 (12.0-20.0); CO2, Blood 22 mmol/L (21-32); Calcium, Blood 8.2 mg/dL (8.5-10.1); Chloride, Blood 111 mmol/L (98-108); Creatinine, Blood 2.86 mg/dL (0.60-1.20); Glomerular Filtration Rate 24 (60-); Glucose, Blood 143 mg/dL (70-99); Phosphorus, Blood 6.8 mg/dL (2.5-4.9); Potassium, Blood 4.6 mmol/L (3.5-5.5); Sodium, Blood 141 mmol/L (136-145)
== END | disposition home or self-care (01) ==
LOC: LAB UVN 05:59
PROVIDERS: Family Medicine
DX: E87.5 Hyperkalemia (principal)
CPT/HCPCS: 80069

== ENCOUNTER → 2021-01-11 | Outpatient (CLI) | payer OTHER ==
[2021-01-11 15:09] LABS: Albumin, Blood 2.9 g/dL (3.4-5.0); Anion Gap 8 mmol/L (6-16); Blood Urea Nitrogen 42 mg/dL (8-24); Bun/Creatinine Ratio 18.3 (12.0-20.0); CO2, Blood 27 mmol/L (21-32); Calcium, Blood 8.4 mg/dL (8.5-10.1); Chloride, Blood 107 mmol/L (98-108); Creatinine, Blood 2.29 mg/dL (0.60-1.20); Glomerular Filtration Rate 32 (60-); Glucose, Blood 140 mg/dL (70-99); Phosphorus, Blood 4.5 mg/dL (2.5-4.9); Potassium, Blood 4.4 mmol/L (3.5-5.5); Sodium, Blood 142 mmol/L (136-145)
== END | disposition home or self-care (01) ==
LOC: LAB UVN 11:49 → EDSTATUS 12:51
PROVIDERS: Internal Medicine
DX: N18.4 Chronic kidney disease, stage 4 (severe) (principal)
CPT/HCPCS: 80069

== ENCOUNTER → 2021-01-14 | Outpatient (CLI) | payer OTHER ==
[2021-01-14 14:59] LABS: Hematocrit 29.8 % (37.0-53.0); Hemoglobin 9.6 g/dL (13.5-17.5)
[2021-01-14 15:20] LABS: Albumin, Blood 2.9 g/dL (3.4-5.0); Anion Gap 6 mmol/L (6-16); Blood Urea Nitrogen 46 mg/dL (8-24); Bun/Creatinine Ratio 23.6 (12.0-20.0); CO2, Blood 28 mmol/L (21-32); Calcium, Blood 8.6 mg/dL (8.5-10.1); Chloride, Blood 106 mmol/L (98-108); Creatinine, Blood 1.95 mg/dL (0.60-1.20); Glomerular Filtration Rate 38 (60-); Glucose, Blood 225 mg/dL (70-99); Phosphorus, Blood 4.5 mg/dL (2.5-4.9); Potassium, Blood 4.2 mmol/L (3.5-5.5); Sodium, Blood 140 mmol/L (136-145)
== END ==
LOC: LAB UVN 11:35 → EDSTATUS 13:37
PROVIDERS: Family Medicine
DX: N18.4 Chronic kidney disease, stage 4 (severe) (principal); Z88.8 Allergy status to other drugs, medicaments and biological substances
CPT/HCPCS: 80069; 85014; 85018

== ENCOUNTER → 2021-01-24 | Outpatient (CLI) | payer OTHER ==
[2021-01-24 06:26] LABS: Albumin, Blood 2.9 g/dL (3.4-5.0); Anion Gap 4 mmol/L (6-16); Blood Urea Nitrogen 49 mg/dL (8-24); Bun/Creatinine Ratio 24.7 (12.0-20.0); CO2, Blood 27 mmol/L (21-32); Calcium, Blood 8.3 mg/dL (8.5-10.1); Chloride, Blood 114 mmol/L (98-108); Creatinine, Blood 1.98 mg/dL (0.60-1.20); Glomerular Filtration Rate 37 (60-); Glucose, Blood 169 mg/dL (70-99); Phosphorus, Blood 4.5 mg/dL (2.5-4.9); Potassium, Blood 4.3 mmol/L (3.5-5.5); Sodium, Blood 145 mmol/L (136-145)
== END | disposition home or self-care (01) ==
LOC: LAB UVN 05:57 → EDSTATUS 11:28
PROVIDERS: Family Medicine
DX: N18.4 Chronic kidney disease, stage 4 (severe) (principal)
CPT/HCPCS: 80069

== ENCOUNTER → 2021-03-05 | Outpatient (CLI) | payer OTHER ==
[2021-03-05 06:20] LABS: International Normalized Ratio 1.01; Prothrombin Time Results 10.9 Sec (9.7-11.5)
== END | disposition home or self-care (01) ==
LOC: LAB UVN 05:58 → EDSTATUS 07:52
PROVIDERS: Family Medicine
DX: R73.9 Hyperglycemia, unspecified (principal)
CPT/HCPCS: 85610; 86341

== ENCOUNTER → 2021-03-10 | Outpatient (CLI) | payer OTHER ==
[2021-03-10 06:53] LABS: BASOPHILS ABSOLUTE AUTO 0.02 K/mm3 (0.00-0.23); BASOPHILS PERCENT AUTO 0 % (0-2); EOSINOPHILS ABSOLUTE AUTO 0.22 K/mm3 (0.00-0.68); EOSINOPHILS PERCENT AUTO 4 % (0-6); Hematocrit 26.5 % (37.0-53.0); Hemoglobin 8.3 g/dL (13.5-17.5); IMMATURE GRAN ABSOLUTE AUTO 0.01 K/mm3 (0.00-0.10); IMMATURE GRAN PERCENT AUTO 0 % (0-1); LYMPHOCYTES ABSOLUTE AUTO 1.22 K/mm3 (0.84-5.20); LYMPHOCYTES PERCENT AUTO 25 % (21-46); MONOCYTES ABSOLUTE AUTO 0.54 K/mm3 (0.16-1.47); MONOCYTES PERCENT AUTO 11 % (4-13); Mean Corpuscular HGB 28.3 pg (26.0-34.0); Mean Corpuscular HGB Conc 31.3 g/dL (31.5-36.5); Mean Corpuscular Volume 90 fL (80-100); Mean Platelet Volume 9.8 fL (9.1-12.4); NEUTROPHILS ABSOLUTE AUTO 2.97 K/mm3 (1.96-9.15); NEUTROPHILS PERCENT AUTO 60 % (41-73); Platelet Count 300 K/mm3 (150-400); RDW Coefficient Variation 13.2 % (11.7-14.2); RDW Standard Deviation 43.5 fL (35.1-46.3); Red Blood Cell Count 2.93 M/mm3 (4.30-5.90); White Blood Cell Count 4.98 K/mm3 (4.00-11.30)
== END | disposition home or self-care (01) ==
LOC: LAB UVN 06:24 → EDSTATUS 07:52
PROVIDERS: Family Medicine
DX: E21.5 Disorder of parathyroid gland, unspecified (principal); E55.9 Vitamin D deficiency, unspecified; R78.89 Finding of other specified substances, not normally found in blood; R80.9 Proteinuria, unspecified
CPT/HCPCS: 82607; 83970; 85025

== ENCOUNTER → 2021-03-15 | Outpatient (CLI) | payer OTHER ==
[2021-03-15 06:11] LABS: BASOPHILS ABSOLUTE AUTO 0.02 K/mm3 (0.00-0.23); BASOPHILS PERCENT AUTO 0 % (0-2); EOSINOPHILS ABSOLUTE AUTO 0.23 K/mm3 (0.00-0.68); EOSINOPHILS PERCENT AUTO 5 % (0-6); Hematocrit 25.6 % (37.0-53.0); IMMATURE GRAN ABSOLUTE AUTO 0.02 K/mm3 (0.00-0.10); IMMATURE GRAN PERCENT AUTO 0 % (0-1); LYMPHOCYTES ABSOLUTE AUTO 1.21 K/mm3 (0.84-5.20); LYMPHOCYTES PERCENT AUTO 24 % (21-46); MONOCYTES ABSOLUTE AUTO 0.67 K/mm3 (0.16-1.47); MONOCYTES PERCENT AUTO 13 % (4-13); Mean Corpuscular HGB Conc 31.3 g/dL (31.5-36.5); Mean Corpuscular Volume 90 fL (80-100); Mean Platelet Volume 9.7 fL (9.1-12.4); NEUTROPHILS ABSOLUTE AUTO 2.88 K/mm3 (1.96-9.15); NEUTROPHILS PERCENT AUTO 57 % (41-73); Platelet Count 283 K/mm3 (150-400); RDW Coefficient Variation 13.4 % (11.7-14.2); Red Blood Cell Count 2.86 M/mm3 (4.30-5.90); White Blood Cell Count 5.03 K/mm3 (4.00-11.30)
[2021-03-15 06:37] LABS: Albumin, Blood 3.1 g/dL (3.4-5.0); Anion Gap 6 mmol/L (6-16); Blood Urea Nitrogen 58 mg/dL (8-24); Bun/Creatinine Ratio 24.7 (12.0-20.0); CO2, Blood 23 mmol/L (21-32); Calcium, Blood 7.8 mg/dL (8.5-10.1); Chloride, Blood 111 mmol/L (98-108); Creatinine, Blood 2.35 mg/dL (0.60-1.20); Ferritin, Serum 31 ng/mL (26-388); Glomerular Filtration Rate 31 (60-); Glucose, Blood 102 mg/dL (70-99); Iron Serum 22 ug/dL (65-175); Percent Saturation 9.8 % (20.0-50.0); Phosphorus, Blood 5.6 mg/dL (2.5-4.9); Potassium, Blood 4.1 mmol/L (3.5-5.5); Sodium, Blood 140 mmol/L (136-145); Total Iron Binding Capacity 225 ug/dL (250-450)
== END | disposition home or self-care (01) ==
LOC: LAB UVN 05:59 → EDSTATUS 07:55
PROVIDERS: Family Medicine
DX: N18.32 Chronic kidney disease, stage 3b (principal); D63.1 Anemia in chronic kidney disease; E53.8 Deficiency of other specified B group vitamins
CPT/HCPCS: 80069; 82607; 82728; 82746; 83540; 83550; 85025

== ENCOUNTER → 2021-04-04 | Outpatient (CLI) | payer OTHER ==
[2021-04-04 06:07] LABS: Hematocrit 29.3 % (37.0-53.0); Hemoglobin 9.3 g/dL (13.5-17.5)
[2021-04-04 06:22] LABS: Albumin, Blood 3.5 g/dL (3.4-5.0); Anion Gap 7 mmol/L (6-16); Blood Urea Nitrogen 73 mg/dL (8-24); Bun/Creatinine Ratio 25.7 (12.0-20.0); CO2, Blood 26 mmol/L (21-32); Calcium, Blood 8.4 mg/dL (8.5-10.1); Chloride, Blood 106 mmol/L (98-108); Creatinine, Blood 2.84 mg/dL (0.60-1.20); Glomerular Filtration Rate 25 (60-); Glucose, Blood 103 mg/dL (70-99); Phosphorus, Blood 6.4 mg/dL (2.5-4.9); Potassium, Blood 3.8 mmol/L (3.5-5.5); Sodium, Blood 139 mmol/L (136-145)
== END | disposition home or self-care (01) ==
LOC: LAB UVN 06:00 → EDSTATUS 13:58
PROVIDERS: Family Medicine
DX: E11.40 Type 2 diabetes mellitus with diabetic neuropathy, unspecified (principal); E11.22 Type 2 diabetes mellitus with diabetic chronic kidney disease; N18.4 Chronic kidney disease, stage 4 (severe)
CPT/HCPCS: 80069; 85014; 85018

== ENCOUNTER → 2021-04-11 | Outpatient (CLI) | payer OTHER ==
[2021-04-11 06:00] LABS: Hematocrit 30.5 % (37.0-53.0); Hemoglobin 9.8 g/dL (13.5-17.5)
[2021-04-11 06:16] LABS: Albumin, Blood 3.5 g/dL (3.4-5.0); Anion Gap 7 mmol/L (6-16); Blood Urea Nitrogen 78 mg/dL (8-24); Bun/Creatinine Ratio 28.9 (12.0-20.0); CO2, Blood 25 mmol/L (21-32); Calcium, Blood 8.3 mg/dL (8.5-10.1); Chloride, Blood 107 mmol/L (98-108); Glomerular Filtration Rate 26 (60-); Glucose, Blood 109 mg/dL (70-99); Phosphorus, Blood 6.2 mg/dL (2.5-4.9); Potassium, Blood 3.4 mmol/L (3.5-5.5); Sodium, Blood 139 mmol/L (136-145)
== END | disposition home or self-care (01) ==
LOC: LAB UVN 05:53 → EDSTATUS 12:14
PROVIDERS: Family Medicine
DX: E11.40 Type 2 diabetes mellitus with diabetic neuropathy, unspecified (principal); E11.22 Type 2 diabetes mellitus with diabetic chronic kidney disease; N18.4 Chronic kidney disease, stage 4 (severe); I63.89 Other cerebral infarction
CPT/HCPCS: 80069; 85014; 85018

== ENCOUNTER → 2021-04-18 | Outpatient (CLI) | payer OTHER ==
[2021-04-18 05:49] LABS: Hematocrit 28.6 % (37.0-53.0); Hemoglobin 9.3 g/dL (13.5-17.5)
[2021-04-18 06:05] LABS: Albumin, Blood 3.1 g/dL (3.4-5.0); Anion Gap 6 mmol/L (6-16); Blood Urea Nitrogen 92 mg/dL (8-24); Bun/Creatinine Ratio 32.5 (12.0-20.0); CO2, Blood 27 mmol/L (21-32); Calcium, Blood 8.2 mg/dL (8.5-10.1); Chloride, Blood 108 mmol/L (98-108); Creatinine, Blood 2.83 mg/dL (0.60-1.20); Glomerular Filtration Rate 25 (60-); Glucose, Blood 74 mg/dL (70-99); Phosphorus, Blood 6.6 mg/dL (2.5-4.9); Potassium, Blood 3.6 mmol/L (3.5-5.5); Sodium, Blood 141 mmol/L (136-145)
== END | disposition home or self-care (01) ==
LOC: LAB UVN 04:45 → EDSTATUS 12:16
PROVIDERS: Family Medicine
DX: E11.40 Type 2 diabetes mellitus with diabetic neuropathy, unspecified (principal); E11.22 Type 2 diabetes mellitus with diabetic chronic kidney disease; I12.9 Hypertensive chronic kidney disease with stage 1 through stage 4 chronic kidney disease, or unspecified chronic kidney disease; N18.9 Chronic kidney disease, unspecified; I25.10 Atherosclerotic heart disease of native coronary artery without angina pectoris; I63.89 Other cerebral infarction
CPT/HCPCS: 80069; 85014; 85018

== ENCOUNTER → 2021-04-24 | Outpatient (CLI) | payer OTHER ==
[2021-04-24 21:22] LABS: Hematocrit 28.8 % (37.0-53.0); Hemoglobin 9.4 g/dL (13.5-17.5)
[2021-04-24 21:33] LABS: Albumin, Blood 3.2 g/dL (3.4-5.0); Anion Gap 7 mmol/L (6-16); Blood Urea Nitrogen 122 mg/dL (8-24); Bun/Creatinine Ratio 42.8 (12.0-20.0); CO2, Blood 28 mmol/L (21-32); Chloride, Blood 103 mmol/L (98-108); Creatinine, Blood 2.85 mg/dL (0.60-1.20); Glomerular Filtration Rate 24 (60-); Glucose, Blood 234 mg/dL (70-99); Phosphorus, Blood 6.1 mg/dL (2.5-4.9); Potassium, Blood 3.7 mmol/L (3.5-5.5); Sodium, Blood 138 mmol/L (136-145)
== END | disposition home or self-care (01) ==
LOC: EDSTATUS 11:05 → LAB UVN 21:15
PROVIDERS: Family Medicine
DX: E11.40 Type 2 diabetes mellitus with diabetic neuropathy, unspecified (principal); I13.0 Hypertensive heart and chronic kidney disease with heart failure and stage 1 through stage 4 chronic kidney disease, or unspecified chronic kidney disease; E11.22 Type 2 diabetes mellitus with diabetic chronic kidney disease; N18.4 Chronic kidney disease, stage 4 (severe); I50.32 Chronic diastolic (congestive) heart failure
CPT/HCPCS: 80069; 85014; 85018

== ENCOUNTER → 2021-04-27 | Outpatient (CLI) | payer OTHER ==
[2021-04-27 06:29] LABS: Hematocrit 30.1 % (37.0-53.0); Hemoglobin 9.8 g/dL (13.5-17.5)
== END | disposition home or self-care (01) ==
LOC: LAB UVN 06:13 → EDSTATUS 11:07
PROVIDERS: Family Medicine
DX: N18.4 Chronic kidney disease, stage 4 (severe) (principal)
CPT/HCPCS: 85014; 85018

== ENCOUNTER → 2021-05-02 | Outpatient (CLI) | payer OTHER ==
[2021-05-02 05:50] LABS: Hematocrit 31.1 % (37.0-53.0); Hemoglobin 10.2 g/dL (13.5-17.5)
[2021-05-02 06:06] LABS: Albumin, Blood 3.5 g/dL (3.4-5.0); Anion Gap 7 mmol/L (6-16); Blood Urea Nitrogen 124 mg/dL (8-24); Bun/Creatinine Ratio 37.9 (12.0-20.0); CO2, Blood 29 mmol/L (21-32); Chloride, Blood 103 mmol/L (98-108); Creatinine, Blood 3.27 mg/dL (0.60-1.20); Glomerular Filtration Rate 21 (60-); Glucose, Blood 106 mg/dL (70-99); Phosphorus, Blood 6.3 mg/dL (2.5-4.9); Potassium, Blood 3.5 mmol/L (3.5-5.5); Sodium, Blood 139 mmol/L (136-145)
[2021-05-02 20:39] LABS: BASOPHILS ABSOLUTE AUTO 0.04 K/mm3 (0.00-0.23); BASOPHILS PERCENT AUTO 1 % (0-2); EOSINOPHILS ABSOLUTE AUTO 0.27 K/mm3 (0.00-0.68); EOSINOPHILS PERCENT AUTO 4 % (0-6); IMMATURE GRAN ABSOLUTE AUTO 0.01 K/mm3 (0.00-0.10); IMMATURE GRAN PERCENT AUTO 0 % (0-1); LYMPHOCYTES ABSOLUTE AUTO 1.48 K/mm3 (0.84-5.20); LYMPHOCYTES PERCENT AUTO 24 % (21-46); MONOCYTES ABSOLUTE AUTO 0.66 K/mm3 (0.16-1.47); MONOCYTES PERCENT AUTO 11 % (4-13); Mean Corpuscular HGB 26.8 pg (26.0-34.0); Mean Corpuscular HGB Conc 32.9 g/dL (31.5-36.5); Mean Corpuscular Volume 82 fL (80-100); Mean Platelet Volume 10.8 fL (9.1-12.4); NEUTROPHILS ABSOLUTE AUTO 3.82 K/mm3 (1.96-9.15); NEUTROPHILS PERCENT AUTO 61 % (41-73); Platelet Count 308 K/mm3 (150-400); RDW Coefficient Variation 13.8 % (11.7-14.2); RDW Standard Deviation 40.8 fL (35.1-46.3); Red Blood Cell Count 3.84 M/mm3 (4.30-5.90); White Blood Cell Count 6.28 K/mm3 (4.00-11.30)
== END | disposition home or self-care (01) ==
LOC: LAB UVN 05:44 → EDSTATUS 11:08
PROVIDERS: Family Medicine
DX: I13.0 Hypertensive heart and chronic kidney disease with heart failure and stage 1 through stage 4 chronic kidney disease, or unspecified chronic kidney disease (principal); I50.32 Chronic diastolic (congestive) heart failure; N18.4 Chronic kidney disease, stage 4 (severe)
CPT/HCPCS: 80069; 85025

== ENCOUNTER → 2021-05-08 | Outpatient (CLI) | payer OTHER ==
[2021-05-08 22:06] LABS: Albumin, Blood 3.3 g/dL (3.4-5.0); Anion Gap 10 mmol/L (6-16); Blood Urea Nitrogen 136 mg/dL (8-24); Bun/Creatinine Ratio 43.2 (12.0-20.0); CO2, Blood 27 mmol/L (21-32); Calcium, Blood 8.7 mg/dL (8.5-10.1); Chloride, Blood 103 mmol/L (98-108); Creatinine, Blood 3.15 mg/dL (0.60-1.20); Glomerular Filtration Rate 22 (60-); Glucose, Blood 194 mg/dL (70-99); Phosphorus, Blood 6.7 mg/dL (2.5-4.9); Potassium, Blood 3.5 mmol/L (3.5-5.5); Sodium, Blood 140 mmol/L (136-145)
== END | disposition home or self-care (01) ==
LOC: EDSTATUS 11:09 → LAB UVN 21:50
PROVIDERS: Family Medicine
DX: E11.40 Type 2 diabetes mellitus with diabetic neuropathy, unspecified (principal); E11.22 Type 2 diabetes mellitus with diabetic chronic kidney disease; N18.4 Chronic kidney disease, stage 4 (severe)
CPT/HCPCS: 80069

== ENCOUNTER → 2021-05-15 | Outpatient (CLI) | payer OTHER ==
[2021-05-16 00:02] LABS: Hematocrit 30.3 % (37.0-53.0); Hemoglobin 10.2 g/dL (13.5-17.5)
[2021-05-16 00:17] LABS: Albumin, Blood 3.4 g/dL (3.4-5.0); Anion Gap 8 mmol/L (6-16); Blood Urea Nitrogen 138 mg/dL (8-24); Bun/Creatinine Ratio 42.7 (12.0-20.0); CO2, Blood 31 mmol/L (21-32); Calcium, Blood 8.3 mg/dL (8.5-10.1); Chloride, Blood 98 mmol/L (98-108); Creatinine, Blood 3.23 mg/dL (0.60-1.20); Glomerular Filtration Rate 21 (60-); Glucose, Blood 208 mg/dL (70-99); Phosphorus, Blood 5.5 mg/dL (2.5-4.9); Potassium, Blood 3.4 mmol/L (3.5-5.5); Sodium, Blood 137 mmol/L (136-145)
== END | disposition home or self-care (01) ==
LOC: EDSTATUS 11:11 → LAB UVN 23:57
PROVIDERS: Family Medicine
DX: I10 Essential (primary) hypertension (principal)
CPT/HCPCS: 80069; 85014; 85018

== ENCOUNTER → 2021-05-18 | Outpatient (CLI) | payer OTHER ==
[2021-05-19 05:53] LABS: BASOPHILS ABSOLUTE AUTO 0.03 K/mm3 (0.00-0.23); BASOPHILS PERCENT AUTO 1 % (0-2); EOSINOPHILS ABSOLUTE AUTO 0.23 K/mm3 (0.00-0.68); EOSINOPHILS PERCENT AUTO 4 % (0-6); Hematocrit 31.9 % (37.0-53.0); Hemoglobin 10.6 g/dL (13.5-17.5); IMMATURE GRAN ABSOLUTE AUTO 0.01 K/mm3 (0.00-0.10); IMMATURE GRAN PERCENT AUTO 0 % (0-1); LYMPHOCYTES ABSOLUTE AUTO 1.21 K/mm3 (0.84-5.20); LYMPHOCYTES PERCENT AUTO 20 % (21-46); MONOCYTES PERCENT AUTO 10 % (4-13); Mean Corpuscular HGB 26.8 pg (26.0-34.0); Mean Corpuscular HGB Conc 33.2 g/dL (31.5-36.5); Mean Corpuscular Volume 81 fL (80-100); Mean Platelet Volume 10.9 fL (9.1-12.4); NEUTROPHILS ABSOLUTE AUTO 3.87 K/mm3 (1.96-9.15); NEUTROPHILS PERCENT AUTO 65 % (41-73); Platelet Count 279 K/mm3 (150-400); RDW Standard Deviation 41.1 fL (35.1-46.3); Red Blood Cell Count 3.95 M/mm3 (4.30-5.90); White Blood Cell Count 5.95 K/mm3 (4.00-11.30)
[2021-05-19 06:14] LABS: Albumin, Blood 3.5 g/dL (3.4-5.0); Anion Gap 8 mmol/L (6-16); Blood Urea Nitrogen 134 mg/dL (8-24); Bun/Creatinine Ratio 49.6 (12.0-20.0); CO2, Blood 31 mmol/L (21-32); Calcium, Blood 8.9 mg/dL (8.5-10.1); Chloride, Blood 102 mmol/L (98-108); Glomerular Filtration Rate 26 (60-); Glucose, Blood 150 mg/dL (70-99); Phosphorus, Blood 5.2 mg/dL (2.5-4.9); Potassium, Blood 3.2 mmol/L (3.5-5.5); Sodium, Blood 141 mmol/L (136-145)
== END | disposition home or self-care (01) ==
LOC: EDSTATUS 11:12 → LAB UVN 23:55
PROVIDERS: Family Medicine
DX: N18.4 Chronic kidney disease, stage 4 (severe) (principal)
CPT/HCPCS: 80069; 85025

== ENCOUNTER 2021-06-02 06:44 | Day surgery (SDC) | payer OTHER ==
[~2021-06-02] VITALS: Ht 193 cm; Wt 108.9 kg
[~2021-06-02 06:44] MED LIST changes: -FAMO40 PO; -FERSU300 PO; -FURO40 PO; +FURO80 PO; -JUVEN PACKET1 EAC3; -METO5 PO; -POTA10T PO; -THERA-D2000 UNIT PO; -TIZA4 PO; -TRAM50 PO
[2021-06-02 08:03] LABS: SARS-Cov-2 (COVID-19) PCR, MMC NEGATIVE (NEGATIVE)
[2021-06-02] MEDS ORDERED: JUVEN PACKET1 EAC3 (09:47)
[2021-06-02] MEDS ORDERED: FERSU300 PO (09:47)
[2021-06-02] MEDS ORDERED: METO5 PO (09:48)
[2021-06-02] MEDS ORDERED: TRAM50 PO (09:49)
[2021-06-02] MEDS ORDERED: POTA10T PO (09:49)
--- NOTE | 2021-06-02 09:54 | NUR ---
Patient states colon prep results clear. History, Chart, Medications and Allergies reviewed before start of procedure. Lungs clear T/O to Auscultation. Patient confirms NPO status and agrees with scheduled surgery. Patient States Post-Procedure ride home has been arranged.
--- NOTE | 2021-06-02 10:14 | NUR ---
06/02/21 1014 Kalen Brennan History, Chart, Medications and Allergies reviewed before start of procedure. MONITOR INTACT WITH CONTINUOUS PULSE OXIMETRY AND INTERMITTENT BP. EKG MONITORED DURING PROCEDURE. O2 VIA N/C INTACT THROUGHOUT SEDATION/PROCEDURE. Bite Block Placed. See Anesthesia record/DR VENCES.
--- NOTE | 2021-06-02 11:59 | NUR ---
Patient up to Ambulate independently. Gait steady. Discharge instructions reviewed with patient. Patient verbalizes understanding. Copy given to patient to take home. Discharged via wheelchair to private car for ride home. SPOKE WITH RN AT [facility] REGARDING RX. RN STATED TO SEND THE WRITTEN ORDER WITH PT AND RN AT FACILITY WILL CALL IT IN TO PHARMACY. WRITTEN ORDER WAS GIVEN TO PT AND PT STATED UNDERSTANDING.
== END 2021-06-02 11:50 | disposition home or self-care (01) ==
LOC: ORSCMMR 06:44 → ORD 10:00 → ORSCMMR 11:50
PROVIDERS: Internal Medicine Gastroenterology
PROC: 0DBM8ZX Excision of Descending Colon, Via Natural or Artificial Opening Endoscopic, Diagnostic (ICD-10-PCS; principal; 2021-06-02 10:00)
PROC: 0DB98ZX Excision of Duodenum, Via Natural or Artificial Opening Endoscopic, Diagnostic (ICD-10-PCS; principal; 2021-06-02 10:00)
PROC: 0DBN8ZX Excision of Sigmoid Colon, Via Natural or Artificial Opening Endoscopic, Diagnostic (ICD-10-PCS; principal; 2021-06-02 10:00)
PROC: 0DB78ZX Excision of Stomach, Pylorus, Via Natural or Artificial Opening Endoscopic, Diagnostic (ICD-10-PCS; principal; 2021-06-02 10:00)
DX: D50.9 Iron deficiency anemia, unspecified (principal); Z11.59 Encounter for screening for other viral diseases; K29.80 Duodenitis without bleeding; K29.70 Gastritis, unspecified, without bleeding; D12.4 Benign neoplasm of descending colon; D12.5 Benign neoplasm of sigmoid colon; E11.22 Type 2 diabetes mellitus with diabetic chronic kidney disease; I12.9 Hypertensive chronic kidney disease with stage 1 through stage 4 chronic kidney disease, or unspecified chronic kidney disease; N18.4 Chronic kidney disease, stage 4 (severe); G47.33 Obstructive sleep apnea (adult) (pediatric); I25.10 Atherosclerotic heart disease of native coronary artery without angina pectoris; I50.9 Heart failure, unspecified; Z79.899 Other long term (current) drug therapy; Z79.82 Long term (current) use of aspirin; Z79.4 Long term (current) use of insulin
CPT/HCPCS: 82947; 88305; 88313; 88342; J2405; J2704; J7030; J7120; U0004

== ENCOUNTER → 2021-06-02 | Outpatient (CLI) | payer OTHER ==
[~2021-06-02] MED LIST changes: +FAMO40 PO; +FURO40 PO; -FURO80 PO; +THERA-D2000 UNIT PO; +TIZA4 PO
[2021-06-02 09:36] LABS: Albumin, Blood 3.8 g/dL (3.4-5.0); Anion Gap 9 mmol/L (6-16); Blood Urea Nitrogen 104 mg/dL (8-24); Bun/Creatinine Ratio 38.8 (12.0-20.0); CO2, Blood 26 mmol/L (21-32); Calcium, Blood 9.1 mg/dL (8.5-10.1); Chloride, Blood 101 mmol/L (98-108); Creatinine, Blood 2.68 mg/dL (0.60-1.20); Glomerular Filtration Rate 25 (60-); Glucose, Blood 128 mg/dL (70-99); Phosphorus, Blood 4.5 mg/dL (2.5-4.9); Potassium, Blood 3.7 mmol/L (3.5-5.5); Sodium, Blood 136 mmol/L (136-145)
== END ==
LOC: LAB UVN 08:17 → EDSTATUS 13:40
PROVIDERS: Family Medicine
DX: E11.22 Type 2 diabetes mellitus with diabetic chronic kidney disease (principal); N18.4 Chronic kidney disease, stage 4 (severe)
CPT/HCPCS: 80069

== ENCOUNTER → 2021-06-12 | Outpatient (CLI) | payer OTHER ==
[~2021-06-12] MED LIST changes: +FAMO40 PO; +FERSU300 PO; +FURO40 PO; -FURO80 PO; +JUVEN PACKET1 EAC3; +METO5 PO; +POTA10T PO; +THERA-D2000 UNIT PO; +TIZA4 PO; +TRAM50 PO
[2021-06-13 00:27] LABS: Hemoglobin 9.9 g/dL (13.5-17.5)
[2021-06-13 00:37] LABS: Albumin, Blood 3.2 g/dL (3.4-5.0); Anion Gap 7 mmol/L (6-16); Blood Urea Nitrogen 107 mg/dL (8-24); CO2, Blood 28 mmol/L (21-32); Calcium, Blood 8.3 mg/dL (8.5-10.1); Chloride, Blood 102 mmol/L (98-108); Creatinine, Blood 3.82 mg/dL (0.60-1.20); Glomerular Filtration Rate 16 (60-); Glucose, Blood 212 mg/dL (70-99); Phosphorus, Blood 4.8 mg/dL (2.5-4.9); Potassium, Blood 4.3 mmol/L (3.5-5.5); Sodium, Blood 137 mmol/L (136-145)
== END | disposition home or self-care (01) ==
LOC: EDSTATUS 10:57 → LAB UVN 22:55
PROVIDERS: Family Medicine
DX: N18.4 Chronic kidney disease, stage 4 (severe) (principal); I25.10 Atherosclerotic heart disease of native coronary artery without angina pectoris; I63.89 Other cerebral infarction
CPT/HCPCS: 80069; 85014; 85018

== ENCOUNTER → 2021-06-27 | Outpatient (CLI) | payer OTHER ==
[2021-06-27 05:51] LABS: Albumin, Blood 3.3 g/dL (3.4-5.0); Anion Gap 8 mmol/L (6-16); Blood Urea Nitrogen 117 mg/dL (8-24); CO2, Blood 29 mmol/L (21-32); Calcium, Blood 8.7 mg/dL (8.5-10.1); Chloride, Blood 101 mmol/L (98-108); Creatinine, Blood 3.55 mg/dL (0.60-1.20); Glomerular Filtration Rate 18 (60-); Glucose, Blood 108 mg/dL (70-99); Phosphorus, Blood 6.8 mg/dL (2.5-4.9); Potassium, Blood 3.6 mmol/L (3.5-5.5); Sodium, Blood 138 mmol/L (136-145)
[2021-06-27 05:52] LABS: Hematocrit 31.6 % (37.0-53.0); Hemoglobin 10.7 g/dL (13.5-17.5)
== END | disposition home or self-care (01) ==
LOC: LAB UVN 05:38 → EDSTATUS 10:54
PROVIDERS: Family Medicine
DX: I69.354 Hemiplegia and hemiparesis following cerebral infarction affecting left non-dominant side (principal); E11.40 Type 2 diabetes mellitus with diabetic neuropathy, unspecified; E11.22 Type 2 diabetes mellitus with diabetic chronic kidney disease; I25.10 Atherosclerotic heart disease of native coronary artery without angina pectoris
CPT/HCPCS: 80069; 85014; 85018

== ENCOUNTER → 2021-06-30 | Outpatient (CLI) | payer OTHER ==
[2021-06-30 06:26] LABS: BASOPHILS ABSOLUTE AUTO 0.03 K/mm3 (0.00-0.23); BASOPHILS PERCENT AUTO 1 % (0-2); EOSINOPHILS ABSOLUTE AUTO 0.25 K/mm3 (0.00-0.68); EOSINOPHILS PERCENT AUTO 5 % (0-6); Hematocrit 28.6 % (37.0-53.0); Hemoglobin 9.6 g/dL (13.5-17.5); IMMATURE GRAN ABSOLUTE AUTO 0.01 K/mm3 (0.00-0.10); IMMATURE GRAN PERCENT AUTO 0 % (0-1); LYMPHOCYTES ABSOLUTE AUTO 1.29 K/mm3 (0.84-5.20); LYMPHOCYTES PERCENT AUTO 27 % (21-46); MONOCYTES ABSOLUTE AUTO 0.52 K/mm3 (0.16-1.47); MONOCYTES PERCENT AUTO 11 % (4-13); Mean Corpuscular HGB 28.2 pg (26.0-34.0); Mean Corpuscular HGB Conc 33.6 g/dL (31.5-36.5); Mean Corpuscular Volume 84 fL (80-100); Mean Platelet Volume 10.4 fL (9.1-12.4); NEUTROPHILS ABSOLUTE AUTO 2.73 K/mm3 (1.96-9.15); NEUTROPHILS PERCENT AUTO 57 % (41-73); Platelet Count 270 K/mm3 (150-400); RDW Coefficient Variation 14.7 % (11.7-14.2); RDW Standard Deviation 45.1 fL (35.1-46.3); Red Blood Cell Count 3.41 M/mm3 (4.30-5.90); White Blood Cell Count 4.83 K/mm3 (4.00-11.30)
[2021-06-30 06:42] LABS: Albumin, Blood 3.1 g/dL (3.4-5.0); Anion Gap 7 mmol/L (6-16); Blood Urea Nitrogen 109 mg/dL (8-24); Bun/Creatinine Ratio 27.7 (12.0-20.0); CO2, Blood 29 mmol/L (21-32); Calcium, Blood 8.5 mg/dL (8.5-10.1); Chloride, Blood 101 mmol/L (98-108); Creatinine, Blood 3.93 mg/dL (0.60-1.20); Glomerular Filtration Rate 16 (60-); Glucose, Blood 153 mg/dL (70-99); Phosphorus, Blood 6.8 mg/dL (2.5-4.9); Potassium, Blood 3.5 mmol/L (3.5-5.5); Sodium, Blood 137 mmol/L (136-145)
== END ==
LOC: LAB UVN 06:20 → EDSTATUS 10:40
PROVIDERS: Family Medicine
DX: E11.40 Type 2 diabetes mellitus with diabetic neuropathy, unspecified (principal); I63.89 Other cerebral infarction
CPT/HCPCS: 80069; 85025

== ENCOUNTER 2021-07-10 09:03 | Emergency (ER) | payer OTHER ==
[~2021-07-10] VITALS: Ht 193 cm; Wt 90.7 kg
[~2021-07-10 09:03] MED LIST changes: -FAMO40 PO; -THERA-D2000 UNIT PO; -TIZA4 PO
[2021-07-10 10:06] LABS: BASOPHILS ABSOLUTE AUTO 0.03 K/mm3 (0.00-0.23); BASOPHILS PERCENT AUTO 0 % (0-2); EOSINOPHILS ABSOLUTE AUTO 0.29 K/mm3 (0.00-0.68); EOSINOPHILS PERCENT AUTO 4 % (0-6); Hematocrit 28.8 % (37.0-53.0); Hemoglobin 9.7 g/dL (13.5-17.5); IMMATURE GRAN ABSOLUTE AUTO 0.02 K/mm3 (0.00-0.10); IMMATURE GRAN PERCENT AUTO 0 % (0-1); LYMPHOCYTES ABSOLUTE AUTO 1.25 K/mm3 (0.84-5.20); LYMPHOCYTES PERCENT AUTO 18 % (21-46); MONOCYTES ABSOLUTE AUTO 0.93 K/mm3 (0.16-1.47); MONOCYTES PERCENT AUTO 13 % (4-13); Mean Corpuscular HGB 27.7 pg (26.0-34.0); Mean Corpuscular HGB Conc 33.7 g/dL (31.5-36.5); Mean Corpuscular Volume 82 fL (80-100); Mean Platelet Volume 9.6 fL (9.1-12.4); NEUTROPHILS ABSOLUTE AUTO 4.62 K/mm3 (1.96-9.15); NEUTROPHILS PERCENT AUTO 65 % (41-73); Platelet Count 309 K/mm3 (150-400); RDW Coefficient Variation 14.1 % (11.7-14.2); RDW Standard Deviation 41.9 fL (35.1-46.3); White Blood Cell Count 7.14 K/mm3 (4.00-11.30)
[2021-07-10 10:17] LABS: Prothrombin Time Results 10.8 Sec (9.7-11.5)
[2021-07-10 10:23] LABS: Albumin/Globulin Ratio 0.7 (0.8-1.8); Bilirubin, Total 0.3 mg/dL (0.1-1.0); Bun/Creatinine Ratio 33.5 (12.0-20.0); Calcium, Blood 8.3 mg/dL (8.5-10.1); Creatinine, Blood 3.97 mg/dL (0.60-1.20); Globulin, Blood 4.3 g/dL (2.2-4.0); Potassium, Blood 3.7 mmol/L (3.5-5.5); Total Protein, Blood 7.3 g/dL (6.4-8.2)
[2021-07-26] MEDS ORDERED: FAMO40 PO (16:50)
[2021-07-26] MEDS ORDERED: CLOP75 PO (16:50)
== END 2021-07-10 12:12 ==
LOC: ER 09:03
PROVIDERS: Student in an Organized Health Care Education/Training Program
DX: R60.0 Localized edema (principal); I87.8 Other specified disorders of veins; M79.605 Pain in left leg; G47.33 Obstructive sleep apnea (adult) (pediatric); I50.22 Chronic systolic (congestive) heart failure; E11.9 Type 2 diabetes mellitus without complications; I11.0 Hypertensive heart disease with heart failure; Z99.89 Dependence on other enabling machines and devices; Z88.8 Allergy status to other drugs, medicaments and biological substances; Z79.82 Long term (current) use of aspirin; Z79.4 Long term (current) use of insulin; Z79.899 Other long term (current) drug therapy
CPT/HCPCS: 80053; 85025; 85610; 85730; 93971; 99284-25

== ENCOUNTER → 2021-07-17 | Outpatient (CLI) | payer OTHER ==
[~2021-07-17] MED LIST changes: +FAMO40 PO; +THERA-D2000 UNIT PO; +TIZA4 PO
[2021-07-17 20:07] LABS: Hematocrit 29.3 % (37.0-53.0); Hemoglobin 9.8 g/dL (13.5-17.5)
[2021-07-17 20:31] LABS: Albumin, Blood 3.1 g/dL (3.4-5.0); Anion Gap 11 mmol/L (6-16); Blood Urea Nitrogen 138 mg/dL (8-24); Bun/Creatinine Ratio 29.4 (12.0-20.0); CO2, Blood 21 mmol/L (21-32); Chloride, Blood 104 mmol/L (98-108); Creatinine, Blood 4.69 mg/dL (0.60-1.20); Glomerular Filtration Rate 13 (60-); Glucose, Blood 168 mg/dL (70-99); Sodium, Blood 136 mmol/L (136-145)
== END | disposition home or self-care (01) ==
LOC: EDSTATUS 10:57 → LAB UVN 19:58
PROVIDERS: Family Medicine
DX: I12.9 Hypertensive chronic kidney disease with stage 1 through stage 4 chronic kidney disease, or unspecified chronic kidney disease (principal); N18.4 Chronic kidney disease, stage 4 (severe)
CPT/HCPCS: 80069; 85014; 85018

== ENCOUNTER → 2021-07-20 | Outpatient (CLI) | payer OTHER ==
[2021-07-20 15:47] LABS: Hematocrit 25.8 % (37.0-53.0); Hemoglobin 8.6 g/dL (13.5-17.5); Mean Corpuscular HGB 28.3 pg (26.0-34.0); Mean Corpuscular HGB Conc 33.3 g/dL (31.5-36.5); Mean Corpuscular Volume 85 fL (80-100); Mean Platelet Volume 10.5 fL (9.1-12.4); Platelet Count 321 K/mm3 (150-400); RDW Coefficient Variation 13.8 % (11.7-14.2); Red Blood Cell Count 3.04 M/mm3 (4.30-5.90)
[2021-07-21 08:10] LABS: HBSAG SCREEN Negative (Negative); HEP A AB, IGM Negative (Negative); HEP B CORE AB, IGM Negative (Negative); HEP C VIRUS AB <0.1 (0.0-0.9)
== END | disposition home or self-care (01) ==
LOC: EDSTATUS 10:15 → LAB UVN 15:34
PROVIDERS: Family Medicine
DX: Z11.59 Encounter for screening for other viral diseases (principal); E11.319 Type 2 diabetes mellitus with unspecified diabetic retinopathy without macular edema; E11.22 Type 2 diabetes mellitus with diabetic chronic kidney disease; I12.9 Hypertensive chronic kidney disease with stage 1 through stage 4 chronic kidney disease, or unspecified chronic kidney disease; N18.4 Chronic kidney disease, stage 4 (severe); E87.5 Hyperkalemia
CPT/HCPCS: 80074; 83540; 85027

== ENCOUNTER → 2021-07-25 | Outpatient (CLI) | payer OTHER ==
[2021-07-25 05:50] LABS: Hematocrit 25.1 % (37.0-53.0); Hemoglobin 8.5 g/dL (13.5-17.5)
[2021-07-25 06:17] LABS: Anion Gap 9 mmol/L (6-16); Blood Urea Nitrogen 135 mg/dL (8-24); Bun/Creatinine Ratio 38.5 (12.0-20.0); CO2, Blood 24 mmol/L (21-32); Calcium, Blood 8.3 mg/dL (8.5-10.1); Chloride, Blood 108 mmol/L (98-108); Creatinine, Blood 3.51 mg/dL (0.60-1.20); Glomerular Filtration Rate 18 (60-); Glucose, Blood 79 mg/dL (70-99); Phosphorus, Blood 6.9 mg/dL (2.5-4.9); Potassium, Blood 4.2 mmol/L (3.5-5.5); Sodium, Blood 141 mmol/L (136-145)
== END | disposition home or self-care (01) ==
LOC: LAB UVN 05:39 → EDSTATUS 10:16
PROVIDERS: Family Medicine
DX: E11.319 Type 2 diabetes mellitus with unspecified diabetic retinopathy without macular edema (principal); I13.0 Hypertensive heart and chronic kidney disease with heart failure and stage 1 through stage 4 chronic kidney disease, or unspecified chronic kidney disease; E11.22 Type 2 diabetes mellitus with diabetic chronic kidney disease; N18.4 Chronic kidney disease, stage 4 (severe); I50.32 Chronic diastolic (congestive) heart failure; I25.10 Atherosclerotic heart disease of native coronary artery without angina pectoris; E87.5 Hyperkalemia
CPT/HCPCS: 80069; 85014; 85018

== ENCOUNTER → 2021-07-26 | Outpatient (CLI) | payer OTHER ==
[2021-07-26 16:52] LABS: Hematocrit 25.2 % (37.0-53.0); Hemoglobin 8.6 g/dL (13.5-17.5); Mean Corpuscular HGB 28.8 pg (26.0-34.0); Mean Corpuscular HGB Conc 34.1 g/dL (31.5-36.5); Mean Corpuscular Volume 84 fL (80-100); Mean Platelet Volume 10.3 fL (9.1-12.4); Platelet Count 284 K/mm3 (150-400); RDW Coefficient Variation 13.3 % (11.7-14.2); RDW Standard Deviation 41.1 fL (35.1-46.3); Red Blood Cell Count 2.99 M/mm3 (4.30-5.90); White Blood Cell Count 4.56 K/mm3 (4.00-11.30)
[2021-07-26 17:06] LABS: International Normalized Ratio 1.02
[2021-07-26 17:13] LABS: Bun/Creatinine Ratio 39.9 (12.0-20.0); Calcium, Blood 8.4 mg/dL (8.5-10.1); Creatinine, Blood 3.33 mg/dL (0.60-1.20); Potassium, Blood 4.4 mmol/L (3.5-5.5)
[2021-07-26 17:18] LABS: BASOPHILS ABSOLUTE MAN 0.04 K/mm3 (0.00-0.23); BASOPHILS PERCENT MAN 1 % (0-2); EOSINOPHILS ABSOLUTE MAN 0.36 K/mm3 (0.00-0.68); EOSINOPHILS PERCENT MAN 8 % (0-6); LYMPHOCYTES PERCENT MAN 11 % (21-46); MONOCYTES ABSOLUTE MAN 0.27 K/mm3 (0.16-1.47); MONOCYTES PERCENT MAN 6 % (4-13); NEUTROPHILS ABSOLUTE MAN 3.37 K/mm3 (1.96-9.15); SEG NEUTROPHILS PERCENT MAN 74 % (41-73); TOTAL CELLS COUNTED 100
== END | disposition home or self-care (01) ==
LOC: EDSTATUS 10:17 → LAB UVN 16:42
PROVIDERS: Family Medicine
DX: N18.6 End stage renal disease (principal)
CPT/HCPCS: 80048; 85007; 85027; 85610

== ENCOUNTER 2021-07-27 10:52 | Day surgery (SDC) | payer OTHER ==
[~2021-07-27] VITALS: Ht 193 cm; Wt 113.4 kg
[~2021-07-27 10:52] MED LIST changes: -THERA-D2000 UNIT PO; -TIZA4 PO
[2021-07-27] MEDS ORDERED: TIZA4 PO (11:20)
[2021-07-27] MEDS ORDERED: THERA-D2000 UNIT PO (11:21)
--- NOTE | 2021-07-27 12:30 | NUR ---
ALAN RETURNED TO THE [facility] RECOVERY VIA STRETCHER. MONITOR APPLIED AND CALL LIGHT IN REACH. SIDE RAILS UP X 2, MEAL TRAY SERVED AND PATIENT FEEDING SELF. PATIENT INSTRUCTED NOT TO RAISE RIGHT ARM ABOVE SHOULDER LEVEL. DRESSING CDI.
--- NOTE | 2021-07-27 13:49 | NUR ---
PATIENT DRESSED WITH ASSISTANCE. SALINE LOCK REMOVED WITH CATHETER INTACT. DISCHARGE INSTRUCTIONS REVIEWED WITH PT, VERBALIZES UNDERSTANDING OF INSTRUCTIONS.
--- NOTE | 2021-07-27 14:14 | NUR ---
PT TO PRIVATE VEHICLE PER W/C WITH ONE STAFF.
== END 2021-07-27 14:05 | disposition home or self-care (01) ==
LOC: MHTC 10:52
PROC: 0JH63XZ Insertion of Tunneled Vascular Access Device into Chest Subcutaneous Tissue and Fascia, Percutaneous Approach (ICD-10-PCS; principal; 2021-07-27)
DX: I13.2 Hypertensive heart and chronic kidney disease with heart failure and with stage 5 chronic kidney disease, or end stage renal disease (principal); I50.30 Unspecified diastolic (congestive) heart failure; N18.6 End stage renal disease; E11.22 Type 2 diabetes mellitus with diabetic chronic kidney disease; E11.40 Type 2 diabetes mellitus with diabetic neuropathy, unspecified; I25.10 Atherosclerotic heart disease of native coronary artery without angina pectoris; G47.33 Obstructive sleep apnea (adult) (pediatric); Z79.899 Other long term (current) drug therapy; Z79.82 Long term (current) use of aspirin; Z79.02 Long term (current) use of antithrombotics/antiplatelets; Z79.4 Long term (current) use of insulin; Z99.2 Dependence on renal dialysis; Z20.822 Contact with and (suspected) exposure to COVID-19
CPT/HCPCS: 99152; 99153; C1750; C1769; C1894; J1644; J2250; J3010; J7030; J7050

== ENCOUNTER → 2021-08-01 | Outpatient (CLI) | payer OTHER ==
[~2021-08-01] MED LIST changes: +THERA-D2000 UNIT PO; +TIZA4 PO
[2021-08-01 13:25] LABS: Hematocrit 28.9 % (37.0-53.0); Hemoglobin 9.6 g/dL (13.5-17.5)
[2021-08-01 15:27] LABS: Albumin, Blood 3.4 g/dL (3.4-5.0); Anion Gap 9 mmol/L (6-16); Blood Urea Nitrogen 81 mg/dL (8-24); Bun/Creatinine Ratio 18.9 (12.0-20.0); CO2, Blood 28 mmol/L (21-32); Calcium, Blood 8.5 mg/dL (8.5-10.1); Chloride, Blood 101 mmol/L (98-108); Creatinine, Blood 4.29 mg/dL (0.60-1.20); Glomerular Filtration Rate 14 (60-); Glucose, Blood 145 mg/dL (70-99); Phosphorus, Blood 5.5 mg/dL (2.5-4.9); Potassium, Blood 3.6 mmol/L (3.5-5.5); Sodium, Blood 138 mmol/L (136-145)
== END | disposition home or self-care (01) ==
LOC: EDSTATUS 10:19 → LAB UVN 11:22
PROVIDERS: Family Medicine
DX: I13.0 Hypertensive heart and chronic kidney disease with heart failure and stage 1 through stage 4 chronic kidney disease, or unspecified chronic kidney disease (principal); N18.4 Chronic kidney disease, stage 4 (severe); I50.32 Chronic diastolic (congestive) heart failure; M62.81 Muscle weakness (generalized)
CPT/HCPCS: 80069; 85014; 85018

== ENCOUNTER → 2021-08-08 | Outpatient (CLI) | payer OTHER ==
[2021-08-08 23:00] LABS: Hematocrit 27.3 % (37.0-53.0); Hemoglobin 9.3 g/dL (13.5-17.5)
[2021-08-08 23:17] LABS: Albumin, Blood 3.2 g/dL (3.4-5.0); Anion Gap 6 mmol/L (6-16); Blood Urea Nitrogen 30 mg/dL (8-24); Bun/Creatinine Ratio 12.4 (12.0-20.0); CO2, Blood 35 mmol/L (21-32); Calcium, Blood 8.2 mg/dL (8.5-10.1); Chloride, Blood 98 mmol/L (98-108); Creatinine, Blood 2.41 mg/dL (0.60-1.20); Glomerular Filtration Rate 28 (60-); Glucose, Blood 169 mg/dL (70-99); Phosphorus, Blood 2.5 mg/dL (2.5-4.9); Potassium, Blood 3.4 mmol/L (3.5-5.5); Sodium, Blood 139 mmol/L (136-145)
== END | disposition home or self-care (01) ==
LOC: EDSTATUS 10:20 → LAB UVN 22:53
PROVIDERS: Family Medicine
DX: E11.40 Type 2 diabetes mellitus with diabetic neuropathy, unspecified (principal); I63.89 Other cerebral infarction
CPT/HCPCS: 80069; 85014; 85018

== ENCOUNTER → 2021-08-30 | Outpatient (CLI) | payer OTHER ==
[~2021-08-30] MED LIST changes: +Benadryl Itch28.3 G1 TOP; +FAMO20 PO; +LOPE2C PO; +METAMUCIL POWD798 GM PO; +MIRALAX17 GM PO; +PREPARATION H1 EAC3 PR; +RENAL VITAMIN0.8 MG PO; +SIME80CH PO
[2021-08-30 07:15] LABS: Albumin, Blood 2.7 g/dL (3.4-5.0); Anion Gap 7 mmol/L (6-16); Blood Urea Nitrogen 57 mg/dL (8-24); Bun/Creatinine Ratio 16.5 (12.0-20.0); CO2, Blood 30 mmol/L (21-32); Calcium, Blood 8.6 mg/dL (8.5-10.1); Chloride, Blood 102 mmol/L (98-108); Creatinine, Blood 3.46 mg/dL (0.60-1.20); Glomerular Filtration Rate 18 (60-); Glucose, Blood 239 mg/dL (70-99); Phosphorus, Blood 4.5 mg/dL (2.5-4.9); Potassium, Blood 3.3 mmol/L (3.5-5.5); Sodium, Blood 139 mmol/L (136-145)
== END ==
LOC: LAB UVN 06:49 → EDSTATUS 14:54
PROVIDERS: Family Medicine
DX: E11.22 Type 2 diabetes mellitus with diabetic chronic kidney disease (principal); I12.0 Hypertensive chronic kidney disease with stage 5 chronic kidney disease or end stage renal disease; N18.5 Chronic kidney disease, stage 5; D50.9 Iron deficiency anemia, unspecified
CPT/HCPCS: 80069

== ENCOUNTER → 2021-09-05 | Outpatient (CLI) | payer OTHER ==
[2021-09-05 08:51] LABS: Calcium, Blood 8.3 mg/dL (8.5-10.1); Creatinine, Blood 3.25 mg/dL (0.60-1.20); Potassium, Blood 3.5 mmol/L (3.5-5.5)
[2021-09-05 09:01] LABS: Hematocrit 28.7 % (37.0-53.0); Hemoglobin 9.6 g/dL (13.5-17.5); Mean Corpuscular HGB 29.5 pg (26.0-34.0); Mean Corpuscular HGB Conc 33.4 g/dL (31.5-36.5); Mean Corpuscular Volume 88 fL (80-100); Mean Platelet Volume 9.6 fL (9.1-12.4); Platelet Count 274 K/mm3 (150-400); RDW Standard Deviation 41.6 fL (35.1-46.3); Red Blood Cell Count 3.25 M/mm3 (4.30-5.90); White Blood Cell Count 6.19 K/mm3 (4.00-11.30)
[2021-09-05 09:57] LABS: BAND PERCENT MAN 1 % (0-8); BASOPHILS PERCENT MAN 0 % (0-2); EOSINOPHILS ABSOLUTE MAN 0.12 K/mm3 (0.00-0.68); EOSINOPHILS PERCENT MAN 2 % (0-6); LYMPHOCYTES ABSOLUTE MAN 1.48 K/mm3 (0.84-5.20); LYMPHOCYTES PERCENT MAN 24 % (21-46); MONOCYTES ABSOLUTE MAN 0.37 K/mm3 (0.16-1.47); MONOCYTES PERCENT MAN 6 % (4-13); SEG NEUTROPHILS PERCENT MAN 67 % (41-73); TOTAL CELLS COUNTED 100
[2021-09-05 17:18] LABS: International Normalized Ratio 0.98; Prothrombin Time Results 10.3 Sec (9.7-11.5)
== END ==
LOC: LAB UVN 07:42 → EDSTATUS 14:55
PROVIDERS: Family Medicine
DX: N18.6 End stage renal disease (principal); Z88.8 Allergy status to other drugs, medicaments and biological substances
CPT/HCPCS: 80048; 85007; 85027; 85610

== ENCOUNTER 2021-09-06 10:14 | Day surgery (SDC) | payer OTHER ==
[~2021-09-06] VITALS: Ht 182.9 cm; Wt 127.0 kg
[~2021-09-06 10:14] MED LIST changes: -Benadryl Itch28.3 G1 TOP; -FAMO20 PO; -LOPE2C PO; -METAMUCIL POWD798 GM PO; -MIRALAX17 GM PO; -PREPARATION H1 EAC3 PR; -RENAL VITAMIN0.8 MG PO; -SIME80CH PO
--- NOTE | 2021-09-06 12:00 | NUR ---
PATIENT RETURNED FROM THE CATHLAB. EXISTING PERMACATH REMIANS IN PLACE. THROMBECTOMY PERFORMED AND REWIRED AND REPOSITIONED. NEW DRESSING APPLIED. PATIENT PLACED ON THE MONITOR ANDRIGHT UPPER CHEST WALL SITE CHECKED. DRESSING CDI. VVS. NO PAIN NOTED FROM THE PATIENT. PATEINT AWAKE AND LUNCH TRAY SERVED. ARRANGED FOR TRANSPORTATION BACK TO [facility]IOR [facility].
--- NOTE | 2021-09-06 13:14 | NUR ---
PATIENT DISCHARG[facility] HOME [facility] TO HIS NEXT APPOINTMENT AT DR. ANSARI'S OFFICE. REPORTED CALLED TO THE NURSING FACILITY. PATIENT RETAINED ALL HIS BELONINGS AND PIV WAS REMOVED. DRESSING SECURED TO THE RIGHT CHEST WALL PERMACATH AND DISCHARGE INSTRUCTIONS IN PLACE WITH THE PATIENT.
== END 2021-09-06 13:00 | disposition home or self-care (01) ==
LOC: MHTC 10:14
DX: T82.868A Thrombosis due to vascular prosthetic devices, implants and grafts, initial encounter (principal); T82.41XA Breakdown (mechanical) of vascular dialysis catheter, initial encounter; I13.2 Hypertensive heart and chronic kidney disease with heart failure and with stage 5 chronic kidney disease, or end stage renal disease; E11.22 Type 2 diabetes mellitus with diabetic chronic kidney disease; I50.32 Chronic diastolic (congestive) heart failure; N18.6 End stage renal disease; I25.10 Atherosclerotic heart disease of native coronary artery without angina pectoris; Y84.1 Kidney dialysis as the cause of abnormal reaction of the patient, or of later complication, without mention of misadventure at the time of the procedure; Z88.8 Allergy status to other drugs, medicaments and biological substances
CPT/HCPCS: 36596; 99152; 99153; C1769; J1644; J2250; J3010; J7030; J7040; Q9967

== ENCOUNTER → 2021-09-12 | Outpatient (CLI) | payer OTHER ==
[~2021-09-12] MED LIST changes: +Benadryl Itch28.3 G1 TOP; +FAMO20 PO; +LOPE2C PO; +METAMUCIL POWD798 GM PO; +MIRALAX17 GM PO; +PREPARATION H1 EAC3 PR; +RENAL VITAMIN0.8 MG PO; +SIME80CH PO
[2021-09-12 13:58] LABS: Hematocrit 29.3 % (37.0-53.0); Hemoglobin 9.9 g/dL (13.5-17.5)
[2021-09-12 15:08] LABS: Albumin, Blood 2.8 g/dL (3.4-5.0); Anion Gap 10 mmol/L (6-16); Blood Urea Nitrogen 60 mg/dL (8-24); Bun/Creatinine Ratio 15.6 (12.0-20.0); CO2, Blood 27 mmol/L (21-32); Calcium, Blood 8.3 mg/dL (8.5-10.1); Chloride, Blood 101 mmol/L (98-108); Creatinine, Blood 3.85 mg/dL (0.60-1.20); Glomerular Filtration Rate 16 (60-); Glucose, Blood 262 mg/dL (70-99); Phosphorus, Blood 5.5 mg/dL (2.5-4.9); Potassium, Blood 3.9 mmol/L (3.5-5.5); Sodium, Blood 138 mmol/L (136-145)
== END ==
LOC: LAB UVN 08:29 → EDSTATUS 14:57
PROVIDERS: Family Medicine
DX: I12.0 Hypertensive chronic kidney disease with stage 5 chronic kidney disease or end stage renal disease (principal); E11.22 Type 2 diabetes mellitus with diabetic chronic kidney disease; N18.5 Chronic kidney disease, stage 5; Z88.8 Allergy status to other drugs, medicaments and biological substances; Z79.4 Long term (current) use of insulin
CPT/HCPCS: 80069; 85014; 85018

== ENCOUNTER → 2021-09-26 | Outpatient (CLI) | payer OTHER ==
[2021-09-26 19:22] LABS: Hematocrit 30.6 % (37.0-53.0); Hemoglobin 10.1 g/dL (13.5-17.5)
[2021-09-26 20:08] LABS: Anion Gap 9 mmol/L (6-16); Blood Urea Nitrogen 55 mg/dL (8-24); Bun/Creatinine Ratio 14.4 (12.0-20.0); CO2, Blood 28 mmol/L (21-32); Calcium, Blood 8.8 mg/dL (8.5-10.1); Chloride, Blood 103 mmol/L (98-108); Creatinine, Blood 3.82 mg/dL (0.60-1.20); Glomerular Filtration Rate 16 (60-); Glucose, Blood 200 mg/dL (70-99); Phosphorus, Blood 5.2 mg/dL (2.5-4.9); Potassium, Blood 3.4 mmol/L (3.5-5.5); Sodium, Blood 140 mmol/L (136-145)
== END | disposition home or self-care (01) ==
LOC: EDSTATUS 11:20 → LAB UVN 18:26
PROVIDERS: Family Medicine
DX: E11.22 Type 2 diabetes mellitus with diabetic chronic kidney disease (principal); N18.5 Chronic kidney disease, stage 5
CPT/HCPCS: 80069; 85014; 85018

== ENCOUNTER → 2021-10-03 | Outpatient (CLI) | payer OTHER ==
[2021-10-03 09:52] LABS: Albumin, Blood 2.8 g/dL (3.4-5.0); Anion Gap 11 mmol/L (6-16); Blood Urea Nitrogen 79 mg/dL (8-24); Bun/Creatinine Ratio 20.3 (12.0-20.0); CO2, Blood 25 mmol/L (21-32); Calcium, Blood 8.5 mg/dL (8.5-10.1); Chloride, Blood 101 mmol/L (98-108); Creatinine, Blood 3.89 mg/dL (0.60-1.20); Glomerular Filtration Rate 16 (60-); Glucose, Blood 231 mg/dL (70-99); Phosphorus, Blood 6.9 mg/dL (2.5-4.9); Potassium, Blood 3.5 mmol/L (3.5-5.5); Sodium, Blood 137 mmol/L (136-145)
[2021-10-03 09:57] LABS: Hematocrit 30.6 % (37.0-53.0); Hemoglobin 10.5 g/dL (13.5-17.5)
== END | disposition home or self-care (01) ==
LOC: LAB UVN 07:58 → EDSTATUS 11:21
PROVIDERS: Family Medicine
DX: N18.5 Chronic kidney disease, stage 5 (principal); D63.1 Anemia in chronic kidney disease; D50.9 Iron deficiency anemia, unspecified; R60.0 Localized edema
CPT/HCPCS: 80069; 85014; 85018

== ENCOUNTER → 2021-10-10 | Outpatient (CLI) | payer OTHER ==
[2021-10-10 06:31] LABS: Hematocrit 32.1 % (37.0-53.0)
[2021-10-10 06:39] LABS: Albumin, Blood 3.1 g/dL (3.4-5.0); Anion Gap 9 mmol/L (6-16); Blood Urea Nitrogen 48 mg/dL (8-24); Bun/Creatinine Ratio 12.3 (12.0-20.0); CO2, Blood 31 mmol/L (21-32); Calcium, Blood 8.7 mg/dL (8.5-10.1); Chloride, Blood 101 mmol/L (98-108); Creatinine, Blood 3.91 mg/dL (0.60-1.20); Glomerular Filtration Rate 16 (60-); Glucose, Blood 110 mg/dL (70-99); Phosphorus, Blood 5.3 mg/dL (2.5-4.9); Potassium, Blood 3.6 mmol/L (3.5-5.5); Sodium, Blood 141 mmol/L (136-145)
== END | disposition home or self-care (01) ==
LOC: LAB UVN 06:12 → EDSTATUS 11:22
PROVIDERS: Family Medicine
DX: I63.89 Other cerebral infarction (principal); N18.5 Chronic kidney disease, stage 5
CPT/HCPCS: 80069; 85014; 85018

== ENCOUNTER → 2021-10-17 | Outpatient (CLI) | payer OTHER ==
[2021-10-17 06:05] LABS: Hematocrit 31.9 % (37.0-53.0); Hemoglobin 11.1 g/dL (13.5-17.5)
[2021-10-17 06:31] LABS: Anion Gap 12 mmol/L (6-16); Blood Urea Nitrogen 71 mg/dL (8-24); Bun/Creatinine Ratio 17.3 (12.0-20.0); CO2, Blood 26 mmol/L (21-32); Calcium, Blood 8.6 mg/dL (8.5-10.1); Chloride, Blood 101 mmol/L (98-108); Creatinine, Blood 4.11 mg/dL (0.60-1.20); Glomerular Filtration Rate 15 (60-); Glucose, Blood 205 mg/dL (70-99); Phosphorus, Blood 6.5 mg/dL (2.5-4.9); Potassium, Blood 3.5 mmol/L (3.5-5.5); Sodium, Blood 139 mmol/L (136-145)
== END | disposition home or self-care (01) ==
LOC: LAB UVN 06:00 → EDSTATUS 11:24
PROVIDERS: Family Medicine
DX: I63.89 Other cerebral infarction (principal); N18.5 Chronic kidney disease, stage 5
CPT/HCPCS: 80069; 85014; 85018

== ENCOUNTER → 2021-10-24 | Outpatient (CLI) | payer OTHER ==
[2021-10-24 06:25] LABS: Hematocrit 32.9 % (37.0-53.0); Hemoglobin 11.3 g/dL (13.5-17.5)
[2021-10-24 06:51] LABS: Albumin, Blood 2.9 g/dL (3.4-5.0); Anion Gap 13 mmol/L (6-16); Blood Urea Nitrogen 88 mg/dL (8-24); Bun/Creatinine Ratio 18.6 (12.0-20.0); CO2, Blood 27 mmol/L (21-32); Calcium, Blood 8.8 mg/dL (8.5-10.1); Chloride, Blood 104 mmol/L (98-108); Creatinine, Blood 4.73 mg/dL (0.60-1.20); Glomerular Filtration Rate 13 (60-); Glucose, Blood 156 mg/dL (70-99); Phosphorus, Blood 6.7 mg/dL (2.5-4.9); Potassium, Blood 3.4 mmol/L (3.5-5.5); Sodium, Blood 144 mmol/L (136-145)
== END | disposition home or self-care (01) ==
LOC: LAB UVN 06:15 → EDSTATUS 09:51
PROVIDERS: Family Medicine
DX: E11.22 Type 2 diabetes mellitus with diabetic chronic kidney disease (principal); N18.5 Chronic kidney disease, stage 5
CPT/HCPCS: 80069; 85014; 85018

== ENCOUNTER → 2021-10-31 | Outpatient (CLI) | payer OTHER ==
[2021-10-31 05:38] LABS: Hematocrit 33.6 % (37.0-53.0); Hemoglobin 11.7 g/dL (13.5-17.5)
[2021-10-31 06:32] LABS: Albumin, Blood 3.2 g/dL (3.4-5.0); Anion Gap 15 mmol/L (6-16); Blood Urea Nitrogen 73 mg/dL (8-24); Bun/Creatinine Ratio 16.4 (12.0-20.0); CO2, Blood 25 mmol/L (21-32); Calcium, Blood 9.1 mg/dL (8.5-10.1); Chloride, Blood 99 mmol/L (98-108); Creatinine, Blood 4.44 mg/dL (0.60-1.20); Glomerular Filtration Rate 14 (60-); Glucose, Blood 143 mg/dL (70-99); Phosphorus, Blood 7.9 mg/dL (2.5-4.9); Potassium, Blood 3.5 mmol/L (3.5-5.5); Sodium, Blood 139 mmol/L (136-145)
== END | disposition home or self-care (01) ==
LOC: LAB UVN 05:32 → EDSTATUS 09:52
PROVIDERS: Family Medicine
DX: N18.5 Chronic kidney disease, stage 5 (principal); D50.9 Iron deficiency anemia, unspecified
CPT/HCPCS: 80069; 85014; 85018

== ENCOUNTER → 2021-11-06 | Outpatient (CLI) | payer OTHER ==
[2021-11-06 20:50] LABS: Hematocrit 34.6 % (37.0-53.0); Hemoglobin 11.9 g/dL (13.5-17.5)
[2021-11-06 21:06] LABS: Albumin, Blood 3.2 g/dL (3.4-5.0); Anion Gap 9 mmol/L (6-16); Blood Urea Nitrogen 63 mg/dL (8-24); Bun/Creatinine Ratio 13.8 (12.0-20.0); CO2, Blood 27 mmol/L (21-32); Calcium, Blood 8.4 mg/dL (8.5-10.1); Chloride, Blood 101 mmol/L (98-108); Creatinine, Blood 4.57 mg/dL (0.60-1.20); Glomerular Filtration Rate 13 (60-); Glucose, Blood 260 mg/dL (70-99); Potassium, Blood 3.8 mmol/L (3.5-5.5); Sodium, Blood 137 mmol/L (136-145)
== END | disposition home or self-care (01) ==
LOC: EDSTATUS 09:53 → LAB UVN 20:44
PROVIDERS: Family Medicine
DX: I63.89 Other cerebral infarction (principal); E11.22 Type 2 diabetes mellitus with diabetic chronic kidney disease; N18.9 Chronic kidney disease, unspecified
CPT/HCPCS: 80069; 85014; 85018

== ENCOUNTER → 2021-11-14 | Outpatient (CLI) | payer OTHER ==
[2021-11-14 10:12] LABS: Hemoglobin 13.3 g/dL (13.5-17.5)
== END | disposition home or self-care (01) ==
LOC: LAB UVN 09:35 → EDSTATUS 09:54
PROVIDERS: Family Medicine
DX: I63.89 Other cerebral infarction (principal); I25.10 Atherosclerotic heart disease of native coronary artery without angina pectoris; N18.5 Chronic kidney disease, stage 5
CPT/HCPCS: 85014; 85018

== ENCOUNTER → 2021-12-23 | Outpatient (CLI) | payer OTHER ==
[~2021-12-23] MED LIST changes: +METO2.5 PO; +Norco 5-325 Ta1 EACH PO
[2021-12-23 17:41] LABS: BASOPHILS ABSOLUTE AUTO 0.04 K/mm3 (0.00-0.23); BASOPHILS PERCENT AUTO 1 % (0-2); EOSINOPHILS PERCENT AUTO 4 % (0-6); Hematocrit 34.2 % (37.0-53.0); IMMATURE GRAN ABSOLUTE AUTO 0.01 K/mm3 (0.00-0.10); IMMATURE GRAN PERCENT AUTO 0 % (0-1); LYMPHOCYTES ABSOLUTE AUTO 1.24 K/mm3 (0.84-5.20); LYMPHOCYTES PERCENT AUTO 23 % (21-46); MONOCYTES ABSOLUTE AUTO 0.56 K/mm3 (0.16-1.47); MONOCYTES PERCENT AUTO 10 % (4-13); Mean Corpuscular HGB 30.2 pg (26.0-34.0); Mean Corpuscular HGB Conc 35.1 g/dL (31.5-36.5); Mean Corpuscular Volume 86 fL (80-100); Mean Platelet Volume 9.5 fL (9.1-12.4); NEUTROPHILS ABSOLUTE AUTO 3.39 K/mm3 (1.96-9.15); NEUTROPHILS PERCENT AUTO 62 % (41-73); Platelet Count 297 K/mm3 (150-400); RDW Coefficient Variation 12.4 % (11.7-14.2); RDW Standard Deviation 38.9 fL (35.1-46.3); Red Blood Cell Count 3.98 M/mm3 (4.30-5.90); White Blood Cell Count 5.44 K/mm3 (4.00-11.30)
[2021-12-23 17:55] LABS: International Normalized Ratio 1.01; Prothrombin Time Results 10.6 Sec (9.7-11.5)
[2021-12-23 18:10] LABS: Bun/Creatinine Ratio 7.7 (12.0-20.0); Calcium, Blood 8.5 mg/dL (8.5-10.1); Creatinine, Blood 4.44 mg/dL (0.60-1.20); Potassium, Blood 3.5 mmol/L (3.5-5.5)
== END | disposition home or self-care (01) ==
LOC: EDSTATUS 10:54 → LAB UVN 16:15
PROVIDERS: Physician Assistant
DX: I63.89 Other cerebral infarction (principal); N18.5 Chronic kidney disease, stage 5
CPT/HCPCS: 80048; 85025; 85610

== ENCOUNTER 2021-12-26 06:30 | Day surgery (SDC) | payer OTHER ==
[~2021-12-26] VITALS: Ht 193 cm; Wt 109.0 kg
[~2021-12-26 06:30] MED LIST changes: -METO2.5 PO; -Norco 5-325 Ta1 EACH PO
--- NOTE | 2021-12-26 10:28 | NUR ---
PATIENT RETURNED FROM THE CATHLAB S/P AV FISTULA CREATION TO THE LEFT ARM AFTER BLOCK PLACED. DRESSING TO THE LEFT BRACHIAL CDI. PATIENT ABLE TO FEEL NURSE TOUCH LEFT ARM, BUT NO PAIN NOTED. PATIENT ON THE MONITOR, CALL LIGHT IN REACH. BREAKFAST TRAY SERVED. [facility] WAS CALLED AND PATIENT SCHEDULED DIALYSIS IS NOW AT 1520. PATIENT WAS UPSET AND VERBALLY DISGRUNTAL WITH THE STAFF. IT WAS EXPLAINED THAT [facility] STAFF HAS NO CONTROL OVER [facility]'S SCHEDULE. TAX WILL BE ARRANGED FOR TRANSFER TO [facility] WHEN READY FOR DISCHARGE.
--- NOTE | 2021-12-26 11:45 | NUR ---
AFTER BEING ON THE PHONE FOR 45 MINUTE TRYING TO ARRAGE TRANSPORTATION FOR PATIENT, [facility] STRATEGY ASSOCIATE WAS ABLE TO ARRANGE TRANSPORT FOR THE PATIENT. APPOINTMENT FOR ULTRASOUND IN ONE WEEK WAS CALLED FOR MY JULIA IN DR. FERRELL OFFICE AND I REVIEWED DISCHARGE INSTRUCTIONS WITH THE PATIENT AND SIGNATURES OBTAINED. PATIENT IS OFF THE MONITOR AND ASSISTED WITH DRESSING.
--- NOTE | 2021-12-26 13:23 | NUR ---
1230 AFTER MULTIPLE PHONE CALLS PATIENT WAS DISCHARGE TO [facility] SERVICE TO [facility]. PATIENT RETAINED ALL BELONGINGS. PIV WAS REMOVED PRIOR TO DISCHARGE FROM THE RIGHT HAND. PATIENT WAS AWAKE AND ALERT.
== END 2021-12-26 12:00 | disposition home or self-care (01) ==
LOC: MHTC 06:30
DX: I13.2 Hypertensive heart and chronic kidney disease with heart failure and with stage 5 chronic kidney disease, or end stage renal disease (principal); N18.6 End stage renal disease; E11.22 Type 2 diabetes mellitus with diabetic chronic kidney disease; I50.9 Heart failure, unspecified; Z99.2 Dependence on renal dialysis
CPT/HCPCS: 99152; 99153; C1725; C1769; C1889; C1894; J1644; J2250; J3010; J7030; J7040

== ENCOUNTER 2022-02-20 08:46 | Day surgery (SDC) | payer OTHER ==
[~2022-02-20] VITALS: Ht 193 cm; Wt 109.0 kg
[~2022-02-20 08:46] MED LIST changes: -METO2.5 PO; -Norco 5-325 Ta1 EACH PO
[2022-02-20] MEDS ORDERED: Cymbalta20 MG PO (09:51)
[2022-02-20] MEDS ORDERED: Norco 5-325 Ta1 EACH PO (09:52)
[2022-02-20] MEDS ORDERED: HYDR10 PO (09:52)
[2022-02-20] MEDS ORDERED: TIZA4 PO (09:53)
[2022-02-20] MEDS ORDERED: METO2.5 PO (09:53)
--- NOTE | 2022-02-20 14:16 | NUR ---
PT VERBALIZED UNDERSTANDING OF WRITTEN AND VERBAL D/C INST. IV REMOVED. PT VERBALIZED UNDERSTANDING OF WRITTEN AND VERBAL D/C INST. PT TAKEN OUT OF THE HRT CENTER VIA W/C.
--- NOTE | 2022-02-20 14:32 | NUR ---
1300 PATIENT BACK FROM PROCEDURE. FULLY AWAKE. LEFT ARM BLOCK, LEFT ARM PLACED IN SLING ORDERED. DIET SERVED AND PATIENT FED SELF. FELICIA INQUIRING ABOUT ABOUT PAIN MEDICATIONS POST OPERATIVE, RN CALLED ASS[facility]ED LIVING AND VERIFIED THAT PATIENT HAS PAIN MEDICATION ON HIS HOME MED LIST FOR HIS REQUEST. SO NO FURTHER ORDERS NEEDED.
== END 2022-02-20 14:30 | disposition home or self-care (01) ==
LOC: MHTC 08:46
DX: E11.22 Type 2 diabetes mellitus with diabetic chronic kidney disease (principal); I13.2 Hypertensive heart and chronic kidney disease with heart failure and with stage 5 chronic kidney disease, or end stage renal disease; I50.30 Unspecified diastolic (congestive) heart failure; N18.6 End stage renal disease; I25.10 Atherosclerotic heart disease of native coronary artery without angina pectoris; Z88.8 Allergy status to other drugs, medicaments and biological substances; Z79.4 Long term (current) use of insulin; Z99.2 Dependence on renal dialysis
CPT/HCPCS: 76937; C1725; C1769; C1889; C1894; J1644; J2001; J2250; J2704; J3010; J7030

== ENCOUNTER → 2022-02-20 | Outpatient (CLI) | payer OTHER ==
[~2022-02-20] MED LIST changes: +METO2.5 PO; +Norco 5-325 Ta1 EACH PO
[2022-02-20 06:42] LABS: BASOPHILS ABSOLUTE AUTO 0.02 K/mm3 (0.00-0.23); BASOPHILS PERCENT AUTO 0 % (0-2); EOSINOPHILS PERCENT AUTO 3 % (0-6); Hematocrit 28.1 % (37.0-53.0); Hemoglobin 9.5 g/dL (13.5-17.5); IMMATURE GRAN ABSOLUTE AUTO 0.01 K/mm3 (0.00-0.10); IMMATURE GRAN PERCENT AUTO 0 % (0-1); LYMPHOCYTES PERCENT AUTO 22 % (21-46); MONOCYTES ABSOLUTE AUTO 0.64 K/mm3 (0.16-1.47); MONOCYTES PERCENT AUTO 10 % (4-13); Mean Corpuscular HGB 30.4 pg (26.0-34.0); Mean Corpuscular HGB Conc 33.8 g/dL (31.5-36.5); Mean Corpuscular Volume 90 fL (80-100); Mean Platelet Volume 10.3 fL (9.1-12.4); NEUTROPHILS ABSOLUTE AUTO 4.04 K/mm3 (1.96-9.15); NEUTROPHILS PERCENT AUTO 64 % (41-73); Platelet Count 263 K/mm3 (150-400); RDW Coefficient Variation 12.8 % (11.7-14.2); RDW Standard Deviation 41.8 fL (35.1-46.3); Red Blood Cell Count 3.12 M/mm3 (4.30-5.90); White Blood Cell Count 6.31 K/mm3 (4.00-11.30)
[2022-02-20 06:51] LABS: International Normalized Ratio 1.07; Prothrombin Time Results 11.2 Sec (9.7-11.5)
[2022-02-20 07:44] LABS: Albumin, Blood 3.1 g/dL (3.4-5.0); Anion Gap 13 mmol/L (6-16); Blood Urea Nitrogen 86 mg/dL (8-24); CO2, Blood 26 mmol/L (21-32); Calcium, Blood 8.2 mg/dL (8.5-10.1); Chloride, Blood 104 mmol/L (98-108); Glucose, Blood 101 mg/dL (70-99); Potassium, Blood 3.6 mmol/L (3.5-5.5); Sodium, Blood 143 mmol/L (136-145)
[2022-02-20 08:32] LABS: Creatinine, Blood 8.63 mg/dL (0.60-1.20); Glomerular Filtration Rate 6 (60-); Phosphorus, Blood 8.1 mg/dL (2.5-4.9)
== END | disposition home or self-care (01) ==
LOC: LAB UVN 05:36 → EDSTATUS 14:15
PROVIDERS: Family Medicine
DX: N18.6 End stage renal disease (principal)
CPT/HCPCS: 80069; 85025; 85610

== ENCOUNTER → 2022-06-09 | Outpatient (CLI) | payer OTHER ==
[~2022-06-09] MED LIST changes: +METO2.5 PO; +Norco 5-325 Ta1 EACH PO
[2022-06-10 13:30] LABS: Stool Occult Bld Immuno 1 Positive (NEGATIVE)
== END | disposition home or self-care (01) ==
LOC: LAB 20:55 → LAB SHORT 20:55
PROVIDERS: Family Medicine
DX: Z12.11 Encounter for screening for malignant neoplasm of colon (principal)
CPT/HCPCS: G0328

== ENCOUNTER → 2022-08-03 | Outpatient (CLI) | payer OTHER ==
[~2022-08-03] MED LIST changes: +CARV3.125 PO; +FURO80 PO; +HUMALOG KW100 UNIT/1 SC; +MORP15ER PO; +OXYC5 PO; +SEVEC800 PO
[2022-08-03 06:41] LABS: Blood, Urine 1+ (Neg); Glucose Qualitative, Urine Neg (Neg); Ketones, Urine Neg (Neg); Leukocyte Esterase, Urine Neg (Neg); Nitrite, Urine Neg (Neg); Protein, Urine 2+ (Neg); Urobilinogen, Urine NORM (Normal)
[2022-08-03 06:49] LABS: Appearance, Urine Clear (Clear); Bilirubin, Urine 1+ (Neg); Color, Urine Yellow (P-Yellow)
[2022-08-03 06:50] LABS: Amorphous Light (0-Heavy); Bacteria Rare /hpf; Red Blood Cells, Urine 0-2 /hpf (0-2); Squamous Epithelial Cells Rare /hpf (Few); White Blood Cells, Urine 0-2 /hpf (0-5)
== END ==
LOC: LAB UVN 06:22 → EDSTATUS 08:54
PROVIDERS: Family Medicine
DX: R39.9 Unspecified symptoms and signs involving the genitourinary system (principal)
CPT/HCPCS: 81001

== ENCOUNTER 2022-10-20 11:54 | Emergency (ER) | payer OTHER ==
[~2022-10-20] VITALS: Ht 193 cm; Wt 108.9 kg
[~2022-10-20 11:54] MED LIST changes: -MORP15ER PO; -OXYC5 PO
[2022-10-20] MEDS ORDERED: MORP15ER PO (13:42)
[2022-10-20] MEDS ORDERED: OXYC5 PO (13:42)
== END 2022-10-20 14:54 | disposition home or self-care (01) ==
LOC: ER 11:54
DX: S70.02XA Contusion of left hip, initial encounter (principal); I13.2 Hypertensive heart and chronic kidney disease with heart failure and with stage 5 chronic kidney disease, or end stage renal disease; E11.22 Type 2 diabetes mellitus with diabetic chronic kidney disease; I50.9 Heart failure, unspecified; N18.6 End stage renal disease; G47.33 Obstructive sleep apnea (adult) (pediatric); Z88.6 Allergy status to analgesic agent; Z79.899 Other long term (current) drug therapy; Z79.4 Long term (current) use of insulin; Z79.82 Long term (current) use of aspirin; Z86.73 Personal history of transient ischemic attack (TIA), and cerebral infarction without residual deficits; Z99.2 Dependence on renal dialysis; W18.30XA Fall on same level, unspecified, initial encounter
CPT/HCPCS: 73502; A9270; J1885

== ENCOUNTER 2022-10-23 07:29 | Emergency (ER) | payer OTHER ==
[~2022-10-23] VITALS: Ht 193 cm; Wt 105.0 kg
[~2022-10-23 07:29] MED LIST changes: +MORP15ER PO; +OXYC5 PO
[2022-10-23] MEDS ORDERED: Roxicodone5 MG PO (10:46)
== END 2022-10-23 12:01 | disposition home or self-care (01) ==
LOC: ER 07:29
DX: S70.02XA Contusion of left hip, initial encounter (principal); W19.XXXA Unspecified fall, initial encounter; I13.2 Hypertensive heart and chronic kidney disease with heart failure and with stage 5 chronic kidney disease, or end stage renal disease; E11.22 Type 2 diabetes mellitus with diabetic chronic kidney disease; N18.6 End stage renal disease; I50.20 Unspecified systolic (congestive) heart failure; Z99.2 Dependence on renal dialysis; G47.33 Obstructive sleep apnea (adult) (pediatric); Z88.8 Allergy status to other drugs, medicaments and biological substances; Z79.899 Other long term (current) drug therapy; Z79.4 Long term (current) use of insulin
CPT/HCPCS: A9270

== ENCOUNTER → 2022-10-25 | Outpatient (CLI) | payer OTHER ==
[~2022-10-25] MED LIST changes: +Ampicillin Sodiu2 G1 IV; +B-1100 M1 PO; +CEFAZOLIN2 GM/50 M3 IV; +DOCUZEN 8.6-501 EACH PO; +HUMALOG100 UNIT/1 SC; +INSULANI SC; +METO2.5; +MORPHINE SULFAT10 MG; +MORPHINE SULFAT10 MG PO; +Prozac20 MG PO; +Roxicodone5 MG PO; +SEVE800 PO; +VANCOMYCIN HCL1 G1
[2022-10-25 15:23] LABS: Hemoglobin 9.4 g/dL (13.5-17.5); Mean Corpuscular HGB 31.2 pg (26.0-34.0); Mean Corpuscular HGB Conc 34.8 g/dL (31.5-36.5); Mean Corpuscular Volume 90 fL (80-100); Mean Platelet Volume 9.9 fL (9.1-12.4); Platelet Count 282 K/mm3 (150-400); RDW Coefficient Variation 13.8 % (11.7-14.2); RDW Standard Deviation 45.4 fL (35.1-46.3); Red Blood Cell Count 3.01 M/mm3 (4.30-5.90)
[2022-10-25 16:37] LABS: Adenovirus Not Detected (NOT DETECT); Bordetella pertussis Not Detected (NOT DETECT); Chlamydophila pneumoniae Not Detected (NOT DETECT); Coronavirus 229E Not Detected (NOT DETECT); Coronavirus HKU1 Not Detected (NOT DETECT); Coronavirus NL63 Not Detected (NOT DETECT); Coronavirus OC43 Not Detected (NOT DETECT); Human Metapneumovirus Not Detected (NOT DETECT); Human Rhinovirus/Enterovirus Not Detected (NOT DETECT); Influenza A/2009-H1 Not Detected (NOT DETECT); Influenza A/H1 Not Detected (NOT DETECT); Influenza A/H3 Not Detected (NOT DETECT); Influenza B Not Detected (NOT DETECT); Mycoplasma pneumoniae Not Detected (NOT DETECT); Parainfluenza Virus 1 Not Detected (NOT DETECT); Parainfluenza Virus 2 Not Detected (NOT DETECT); Parainfluenza Virus 3 Not Detected (NOT DETECT); Parainfluenza Virus 4 Not Detected (NOT DETECT); Respiratory Syncytial Virus Not Detected (NOT DETECT); SARS-Cov-2 (COVID-19), BioFire Not Detected (NOT DETECT)
== END | disposition home or self-care (01) ==
LOC: EDSTATUS 10:03 → LAB UVN 13:33
PROVIDERS: Family Medicine
DX: E11.40 Type 2 diabetes mellitus with diabetic neuropathy, unspecified (principal); B96.3 Hemophilus influenzae [H. influenzae] as the cause of diseases classified elsewhere
CPT/HCPCS: 0202U; 85027

== ENCOUNTER 2022-10-26 07:35 | Inpatient (IN) | payer OTHER ==
[~2022-10-26] VITALS: Ht 193 cm; Wt 104.2 kg
[~2022-10-26 07:35] MED LIST changes: -Ampicillin Sodiu2 G1 IV; -B-1100 M1 PO; -CEFAZOLIN2 GM/50 M3 IV; -DOCUZEN 8.6-501 EACH PO; -HUMALOG100 UNIT/1 SC; -INSULANI SC; -METO2.5; -MORPHINE SULFAT10 MG; -MORPHINE SULFAT10 MG PO; -Prozac20 MG PO; -SEVE800 PO; -VANCOMYCIN HCL1 G1
[2022-10-26 08:09] LABS: BASOPHILS ABSOLUTE AUTO 0.03 K/mm3 (0.00-0.23); BASOPHILS PERCENT AUTO 0 % (0-2); EOSINOPHILS ABSOLUTE AUTO 0.05 K/mm3 (0.00-0.68); EOSINOPHILS PERCENT AUTO 0 % (0-6); Hematocrit 26.5 % (37.0-53.0); Hemoglobin 9.1 g/dL (13.5-17.5); IMMATURE GRAN ABSOLUTE AUTO 0.05 K/mm3 (0.00-0.10); IMMATURE GRAN PERCENT AUTO 0 % (0-1); LYMPHOCYTES ABSOLUTE AUTO 0.45 K/mm3 (0.84-5.20); LYMPHOCYTES PERCENT AUTO 4 % (21-46); MONOCYTES ABSOLUTE AUTO 1.34 K/mm3 (0.16-1.47); MONOCYTES PERCENT AUTO 12 % (4-13); Mean Corpuscular HGB 31.1 pg (26.0-34.0); Mean Corpuscular HGB Conc 34.3 g/dL (31.5-36.5); Mean Corpuscular Volume 90 fL (80-100); Mean Platelet Volume 9.4 fL (9.1-12.4); NEUTROPHILS ABSOLUTE AUTO 9.23 K/mm3 (1.96-9.15); NEUTROPHILS PERCENT AUTO 83 % (41-73); Platelet Count 273 K/mm3 (150-400); RDW Coefficient Variation 13.9 % (11.7-14.2); RDW Standard Deviation 45.3 fL (35.1-46.3); Red Blood Cell Count 2.93 M/mm3 (4.30-5.90); White Blood Cell Count 11.15 K/mm3 (4.00-11.30)
[2022-10-26 08:32] LABS: Albumin, Blood 2.4 g/dL (3.4-5.0); Albumin/Globulin Ratio 0.5 (0.8-1.8); Bilirubin, Total 0.8 mg/dL (0.1-1.0); Bun/Creatinine Ratio 8.6 (12.0-20.0); Calcium, Blood 8.3 mg/dL (8.5-10.1); Creatinine, Blood 7.21 mg/dL (0.60-1.20); Globulin, Blood 4.4 g/dL (2.2-4.0); Potassium, Blood 3.6 mmol/L (3.5-5.5); Total Protein, Blood 6.8 g/dL (6.4-8.2)
[2022-10-26 08:51] LABS: Influenza A, PCR NEGATIVE (NEGATIVE); Influenza B, PCR NEGATIVE (NEGATIVE); Resp Syncytial Virus, PCR NEGATIVE (NEGATIVE); SARS-Cov-2 (COVID-19) PCR, MMC NEGATIVE (NEGATIVE)
[2022-10-27 03:50] LABS: Hematocrit 25.7 % (37.0-53.0); Hemoglobin 8.7 g/dL (13.5-17.5); Mean Corpuscular HGB 30.5 pg (26.0-34.0); Mean Corpuscular HGB Conc 33.9 g/dL (31.5-36.5); Mean Corpuscular Volume 90 fL (80-100); Mean Platelet Volume 9.5 fL (9.1-12.4); Platelet Count 273 K/mm3 (150-400); RDW Coefficient Variation 13.8 % (11.7-14.2); RDW Standard Deviation 45.3 fL (35.1-46.3); Red Blood Cell Count 2.85 M/mm3 (4.30-5.90); White Blood Cell Count 10.25 K/mm3 (4.00-11.30)
[2022-10-27 04:23] LABS: Magnesium, Blood 2.1 mg/dL (1.6-2.4)
[2022-10-27 04:30] LABS: Albumin, Blood 2.2 g/dL (3.4-5.0); Anion Gap 10 mmol/L (6-16); Blood Urea Nitrogen 70 mg/dL (8-24); Bun/Creatinine Ratio 8.1 (12.0-20.0); CO2, Blood 33 mmol/L (21-32); Calcium, Blood 8.4 mg/dL (8.5-10.1); Chloride, Blood 95 mmol/L (98-108); Creatinine, Blood 8.66 mg/dL (0.60-1.20); Glomerular Filtration Rate 7 (60-); Glucose, Blood 118 mg/dL (70-99); Phosphorus, Blood 5.9 mg/dL (2.5-4.9); Potassium, Blood 3.6 mmol/L (3.5-5.5); Sodium, Blood 138 mmol/L (136-145)
[2022-10-27 07:45] LABS: BASOPHILS ABSOLUTE AUTO 0.03 K/mm3 (0.00-0.23); BASOPHILS PERCENT AUTO 0 % (0-2); EOSINOPHILS ABSOLUTE AUTO 0.27 K/mm3 (0.00-0.68); EOSINOPHILS PERCENT AUTO 3 % (0-6); Hemoglobin 8.8 g/dL (13.5-17.5); IMMATURE GRAN ABSOLUTE AUTO 0.03 K/mm3 (0.00-0.10); IMMATURE GRAN PERCENT AUTO 0 % (0-1); LYMPHOCYTES ABSOLUTE AUTO 1.03 K/mm3 (0.84-5.20); LYMPHOCYTES PERCENT AUTO 10 % (21-46); MONOCYTES ABSOLUTE AUTO 1.24 K/mm3 (0.16-1.47); MONOCYTES PERCENT AUTO 12 % (4-13); Mean Corpuscular HGB Conc 33.8 g/dL (31.5-36.5); Mean Corpuscular Volume 92 fL (80-100); NEUTROPHILS ABSOLUTE AUTO 7.54 K/mm3 (1.96-9.15); NEUTROPHILS PERCENT AUTO 74 % (41-73); Platelet Count 286 K/mm3 (150-400); RDW Coefficient Variation 14.1 % (11.7-14.2); RDW Standard Deviation 47.4 fL (35.1-46.3); RETICULOCYTE COUNT PERCENT 1.34 % (0.50-2.50); Red Blood Cell Count 2.84 M/mm3 (4.30-5.90); White Blood Cell Count 10.14 K/mm3 (4.00-11.30)
[2022-10-27 09:38] LABS: Percent Saturation 19.4 % (20.0-50.0)
--- NOTE | 2022-10-27 18:38 | NUR ---
SHIFT SUMMARY NO ACUTE CHANGES THIS SHIFT. VSS. REMAINS ON 3L NC. FAMILY BROUGHT IN HOME CPAP. MD CHRISTY IN ROOM TO ASSESS THIS AM. PT TO DIALYSIS THIS AM. PT C/O OF PELVIS/HIP PAIN, MEDICATED PER EMAR. PT HAD ONE BM THIS SHIFT. INCONTINENT OF URINE. C/D ATTENDS IN PLACE. REPOSITIONED Q2H. PARENTS VISITED T/O DAY. PT STATES HE WAS TIRED AND ASKED RN TO ASK THEM TO LEAVE FOR A FEW HOURS. PARENTS UNDERSTOOD AND CAME BACK THIS EVENING. ABX INFUSED PER EMAR. CALL LIGHT IN REACH. PT RESTING IN ROOM.
[2022-10-28 04:13] LABS: BASOPHILS ABSOLUTE AUTO 0.04 K/mm3 (0.00-0.23); BASOPHILS PERCENT AUTO 0 % (0-2); EOSINOPHILS PERCENT AUTO 3 % (0-6); Hematocrit 25.8 % (37.0-53.0); Hemoglobin 8.8 g/dL (13.5-17.5); IMMATURE GRAN ABSOLUTE AUTO 0.07 K/mm3 (0.00-0.10); IMMATURE GRAN PERCENT AUTO 1 % (0-1); LYMPHOCYTES PERCENT AUTO 8 % (21-46); MONOCYTES ABSOLUTE AUTO 1.26 K/mm3 (0.16-1.47); MONOCYTES PERCENT AUTO 11 % (4-13); Mean Corpuscular HGB 30.6 pg (26.0-34.0); Mean Corpuscular HGB Conc 34.1 g/dL (31.5-36.5); Mean Corpuscular Volume 90 fL (80-100); Mean Platelet Volume 9.6 fL (9.1-12.4); NEUTROPHILS ABSOLUTE AUTO 9.19 K/mm3 (1.96-9.15); NEUTROPHILS PERCENT AUTO 78 % (41-73); Platelet Count 343 K/mm3 (150-400); RDW Coefficient Variation 13.5 % (11.7-14.2); RDW Standard Deviation 44.5 fL (35.1-46.3); Red Blood Cell Count 2.88 M/mm3 (4.30-5.90); White Blood Cell Count 11.76 K/mm3 (4.00-11.30)
[2022-10-28 04:38] LABS: Albumin, Blood 2.1 g/dL (3.4-5.0); Anion Gap 7 mmol/L (6-16); Blood Urea Nitrogen 51 mg/dL (8-24); Bun/Creatinine Ratio 8.2 (12.0-20.0); CO2, Blood 33 mmol/L (21-32); Calcium, Blood 8.4 mg/dL (8.5-10.1); Chloride, Blood 95 mmol/L (98-108); Creatinine, Blood 6.24 mg/dL (0.60-1.20); Glomerular Filtration Rate 10 (60-); Glucose, Blood 120 mg/dL (70-99); Phosphorus, Blood 4.3 mg/dL (2.5-4.9); Potassium, Blood 3.8 mmol/L (3.5-5.5); Sodium, Blood 135 mmol/L (136-145)
--- NOTE | 2022-10-28 05:06 | NUR ---
SHIFT SUMMARY NO ACUTE CHANGES TO REPORT THIS SHIFT, PT HAS RESTED MOST OF THE NIGHT. MEDICATED FOR HIP PAIN PER EMAR. PT HAS FLAT EFFECT BUT IS COOPERATIVE WITH CARE. FEVERS THIS SHIFT, MEDICATED WITH TYLENOL. PT INCONTINENT REQUIRING 2 PA TURN AND CHANGE. ASSESSMENT UNCHANGED. BED IN LOWEST POSITION, CALL LIGHT WITHIN REACH.
--- NOTE | 2022-10-28 11:00 | NUR ---
PT TRANSFERRED TO RM 324. REPORT GIVEN TO KEITH RN, ALL BELONGINGS SENT WITH THE PT, TRANSFERRED VIA HOSPITAL BED. NO ACUTE CHANGED SINCE THIS MORNING SHIFT, VITALS HAS BEEN STABLE. PAIN MEDICINE GIVEN FOR LEFT SIDE AND FOOT PAIN AND CHEST PRESSURE MOSTLY WHEN COUGHING. BLOOD CULTURE DRAWN FROM PERIPHERAL AND PERMACATH DONE. BED BATH PROVIDED. PT HAS BEEN CALLING APPROPRIATELY, ABLE TO MAKE NEEDS KNOWN.
--- NOTE | 2022-10-28 18:01 | NUR ---
SHIFT SUMMARY: RECEIVED REPORT FROM EZRA CORDOBA RN IN PCU, REGRADING PT CONDITION. PATIENT WAS IN PCU RM 8, TRANSFERRED TO MEDICAL UNIT WITH NO TELE. PATIENT ARRIVED TO ROOM VIA HOSPITAL BED AROUND 1130. PATIENT IS DNR c PURPLE WRIST BAND TO R WRIST. ALERT AND ORIENTED BUT SLOW TO RESPOND. ANSWER TO ASSESSMENT QUESTIONS APPROPRIATELY. DENIES CP/CHEST DISCOMFORT. DENIES PAIN. PATIENT ON O2 3L VIA NC c SPO2 ABOVE 90%. LUNGS CLEAR T/O TO AUSCULTATION. DENIES SOB AND RR UNLABORED. BS ACHS AND RECEIVED NO INSULIN COVERAGE THIS SHIFT. RECEIVED SCHEDULED ANTIBIOTICS. IV TO R WRIST SALINE LOCKED. Q2 TURN AND BLE ELEVATED ON PILLOWS. VITAL SIGNS REVIEWED. BED ALARM ON FOR SAFETY. CALL LIGHT IN REACH.
[2022-10-29 05:20] LABS: BASOPHILS ABSOLUTE AUTO 0.04 K/mm3 (0.00-0.23); BASOPHILS PERCENT AUTO 0 % (0-2); EOSINOPHILS ABSOLUTE AUTO 0.22 K/mm3 (0.00-0.68); EOSINOPHILS PERCENT AUTO 2 % (0-6); Hematocrit 27.4 % (37.0-53.0); Hemoglobin 9.3 g/dL (13.5-17.5); IMMATURE GRAN ABSOLUTE AUTO 0.17 K/mm3 (0.00-0.10); IMMATURE GRAN PERCENT AUTO 1 % (0-1); LYMPHOCYTES ABSOLUTE AUTO 1.53 K/mm3 (0.84-5.20); LYMPHOCYTES PERCENT AUTO 11 % (21-46); MONOCYTES ABSOLUTE AUTO 1.31 K/mm3 (0.16-1.47); MONOCYTES PERCENT AUTO 10 % (4-13); Mean Corpuscular HGB 30.6 pg (26.0-34.0); Mean Corpuscular HGB Conc 33.9 g/dL (31.5-36.5); Mean Corpuscular Volume 90 fL (80-100); Mean Platelet Volume 9.4 fL (9.1-12.4); NEUTROPHILS ABSOLUTE AUTO 10.58 K/mm3 (1.96-9.15); NEUTROPHILS PERCENT AUTO 76 % (41-73); Platelet Count 372 K/mm3 (150-400); RDW Coefficient Variation 13.9 % (11.7-14.2); RDW Standard Deviation 45.7 fL (35.1-46.3); Red Blood Cell Count 3.04 M/mm3 (4.30-5.90); White Blood Cell Count 13.85 K/mm3 (4.00-11.30)
[2022-10-29 05:38] LABS: Albumin, Blood 1.9 g/dL (3.4-5.0); Anion Gap 9 mmol/L (6-16); Blood Urea Nitrogen 65 mg/dL (8-24); Bun/Creatinine Ratio 8.6 (12.0-20.0); CO2, Blood 32 mmol/L (21-32); Calcium, Blood 8.1 mg/dL (8.5-10.1); Chloride, Blood 93 mmol/L (98-108); Creatinine, Blood 7.58 mg/dL (0.60-1.20); Glomerular Filtration Rate 8 (60-); Glucose, Blood 139 mg/dL (70-99); Phosphorus, Blood 5.6 mg/dL (2.5-4.9); Potassium, Blood 3.9 mmol/L (3.5-5.5); Sodium, Blood 134 mmol/L (136-145); Vancomycin, Random 11.5 ug/mL
--- NOTE | 2022-10-29 18:22 | NUR ---
SHIFT SUMMARY- PT ALERT AND ORIENTED, HE IS FORGETFUL AND IS NWB ON THE LEFT HIP. PT HAS HAD FALLS AT [facility]. TODAYS BIG COMPLAINT IS A COUGH. IT WAS NOTED THIS EVENING HE HAS COUGHED VERY SELDOMLY 2 OR 3 TIMES IN AN HOUR, COUGH SOUNDS A LITTLE CONGESTED HOWEVER LUNG SOUNDS HAVE REMAINED CLEAR IN THE UPPER AND DIM IN THE BASES. SPOKE TO CHON (NEPHROLOGY) THIS MORNING ABOUT THE PT NOT VOIDING FOR A LONG PERIOD OF TIME, BLADDER SCAN SHOWED A VOLUME OF 412ML. RECIEVED A OT ORDER TO STRAIGHT CATH THE PT 400ML OUT WITH THE STRAIGHT CATH. PT HAS HAD NO C/O PAIN OR DISCOMFORT T/O THE SHIFT. HE REPOSITIONS HIMSELF IN THE BED, THIS IS WHAT HE TELLS STAFF WHEN THEY ATTEMPT TO REPOSITION HIM. PLAN IS FOR THE PT TO HAVE DIALYSIS TOMORROW.
--- NOTE | 2022-10-30 04:33 | NUR ---
A/OX2-4; FLUCTUATES, CURRENTLY ORIENTED, CONFUSED AT TIMES, FORGETFUL. COOPERATIVE WITH CARE. C/O PAIN TO LEFT HIP; PRN ANALGESICS PER ORDERS, SLEEPING AT REASSESSMENTS. ON CPAP WITH O2 8L; SPO2 LOW 90s. DESAT TO LOW 80s WHEN PATIENT BRIEFLY REMOVED OXYGEN. LUNGS DIMIN BLL. MOIST COUGH. Q2 TURN OVERNIGHT. BEDREST; NONWEIGHT-BEARING ON LLE. SLEEP PROMOTED. BED ALARM SET. CALL LIGHT IN REACH; ENCOURAGED TO MAKE NEEDS KNOWN
[2022-10-30 05:33] LABS: BASOPHILS ABSOLUTE AUTO 0.04 K/mm3 (0.00-0.23); BASOPHILS PERCENT AUTO 0 % (0-2); EOSINOPHILS ABSOLUTE AUTO 0.35 K/mm3 (0.00-0.68); EOSINOPHILS PERCENT AUTO 3 % (0-6); Hemoglobin 8.7 g/dL (13.5-17.5); IMMATURE GRAN ABSOLUTE AUTO 0.19 K/mm3 (0.00-0.10); IMMATURE GRAN PERCENT AUTO 1 % (0-1); LYMPHOCYTES ABSOLUTE AUTO 1.29 K/mm3 (0.84-5.20); LYMPHOCYTES PERCENT AUTO 10 % (21-46); MONOCYTES ABSOLUTE AUTO 1.11 K/mm3 (0.16-1.47); MONOCYTES PERCENT AUTO 8 % (4-13); Mean Corpuscular HGB 30.4 pg (26.0-34.0); Mean Corpuscular HGB Conc 33.5 g/dL (31.5-36.5); Mean Corpuscular Volume 91 fL (80-100); Mean Platelet Volume 9.6 fL (9.1-12.4); NEUTROPHILS ABSOLUTE AUTO 10.26 K/mm3 (1.96-9.15); NEUTROPHILS PERCENT AUTO 78 % (41-73); Platelet Count 400 K/mm3 (150-400); RDW Coefficient Variation 13.8 % (11.7-14.2); RDW Standard Deviation 46.5 fL (35.1-46.3); Red Blood Cell Count 2.86 M/mm3 (4.30-5.90); White Blood Cell Count 13.24 K/mm3 (4.00-11.30)
[2022-10-30 06:12] LABS: Albumin, Blood 1.8 g/dL (3.4-5.0); Albumin/Globulin Ratio 0.4 (0.8-1.8); Bilirubin, Total 0.8 mg/dL (0.1-1.0); Calcium, Blood 8.2 mg/dL (8.5-10.1); Globulin, Blood 4.4 g/dL (2.2-4.0); Potassium, Blood 4.2 mmol/L (3.5-5.5); Total Protein, Blood 6.2 g/dL (6.4-8.2)
[2022-10-30 06:16] LABS: Creatinine, Blood 8.9 mg/dL (0.60-1.20)
--- NOTE | 2022-10-30 09:35 | NUR ---
DIALYSIS [place] [id number]. PT LAERT AND AGREEABLE TO GOING. 4L NC. CONTINUE POC.
--- NOTE | 2022-10-30 15:44 | NUR ---
POST DIALYSIS PT RETUNED FROM DIALYSIS UNIT ABOUT 1320. LUNCH HELD FOR HIM. HE ATE SEVERAL BITED. FAMILY HERE TO SEE HIM. RENVELA AND ANTIBIOTIC GIVEN. CBG DONE. NO COVERAGE NEEDED. PT NEEDED THE BED VAZQUEZ UPON RETURN. NON VOID TODAY SO FAR. CONTINUE POC.
--- NOTE | 2022-10-30 18:24 | NUR ---
EVENING NOTE PT RESTING. HE HAD DIALYSIS TODAY. TOLERATED WELL ACCORDING TO PT. VSS POST. POOR APPETITE. HE PICKED AT DINNER. MEDICATED FOR LEFT HIP/LEG PAIN THIS EVENING. NON VOID TODAY. RIGHT CHEST PERMA CATH PATENT. LEFT UE FISTULA WITH STRONG BRUITE. HE RECEIVED DIALYSIS THROUGH THE PERMA CATH TODAY. LEFT SIDED WEAKNESS. ENCOURAGED HIM TO USE HIS LEFT UE. HE FORGETS HE CAN MOVE IT. CONTINUE POC.
--- NOTE | 2022-10-31 05:10 | NUR ---
A/OX2-4; FLUCTUATES T/O SHIFT. CONFUSED/ILLOGICAL AT TIMES, FORGETFUL. GENERALLY COOPERATIVE WITH CARE. 4L VIA NC SPO2 LOW 90s. SWAPPED TO CPAP (WITH 9L BLEED-IN) PRISON THROUGH SHIFT. DESATS TO LOW 80s WHEN PATIENT BRIEFLY REMOVES OXYGEN. LUNGS DIMIN BLL. CONGESTED COUGH. Q2 TURN OVERNIGHT; C/O PAIN TO LEFT HIP WITH REPOSITIONING; DENIES PAIN AT REST. DENIED NEED FOR PRN ANALGESIC WHEN OFFERED AFTER C/O PAIN. BEDREST; NONWEIGHT-BEARING ON LLE D/T FX. SLEEP PROMOTED. BED ALARM SET. CALL LIGHT IN REACH; ENCOURAGED TO MAKE NEEDS KNOWN
[2022-10-31 06:51] LABS: BASOPHILS ABSOLUTE AUTO 0.04 K/mm3 (0.00-0.23); BASOPHILS PERCENT AUTO 0 % (0-2); EOSINOPHILS ABSOLUTE AUTO 0.21 K/mm3 (0.00-0.68); EOSINOPHILS PERCENT AUTO 1 % (0-6); IMMATURE GRAN ABSOLUTE AUTO 0.19 K/mm3 (0.00-0.10); IMMATURE GRAN PERCENT AUTO 1 % (0-1); LYMPHOCYTES ABSOLUTE AUTO 1.16 K/mm3 (0.84-5.20); LYMPHOCYTES PERCENT AUTO 7 % (21-46); MONOCYTES ABSOLUTE AUTO 1.55 K/mm3 (0.16-1.47); MONOCYTES PERCENT AUTO 10 % (4-13); Mean Corpuscular HGB 30.9 pg (26.0-34.0); Mean Corpuscular HGB Conc 34.6 g/dL (31.5-36.5); Mean Corpuscular Volume 89 fL (80-100); Mean Platelet Volume 9.4 fL (9.1-12.4); NEUTROPHILS PERCENT AUTO 80 % (41-73); Platelet Count 472 K/mm3 (150-400); RDW Coefficient Variation 13.8 % (11.7-14.2); RDW Standard Deviation 45.1 fL (35.1-46.3); Red Blood Cell Count 2.91 M/mm3 (4.30-5.90); White Blood Cell Count 15.65 K/mm3 (4.00-11.30)
[2022-10-31 07:39] LABS: BASOPHILS ABSOLUTE AUTO 0.05 K/mm3 (0.00-0.23); BASOPHILS PERCENT AUTO 0 % (0-2); EOSINOPHILS ABSOLUTE AUTO 0.17 K/mm3 (0.00-0.68); EOSINOPHILS PERCENT AUTO 1 % (0-6); Hematocrit 25.5 % (37.0-53.0); Hemoglobin 8.8 g/dL (13.5-17.5); IMMATURE GRAN ABSOLUTE AUTO 0.18 K/mm3 (0.00-0.10); IMMATURE GRAN PERCENT AUTO 1 % (0-1); LYMPHOCYTES ABSOLUTE AUTO 1.07 K/mm3 (0.84-5.20); LYMPHOCYTES PERCENT AUTO 7 % (21-46); MONOCYTES ABSOLUTE AUTO 1.76 K/mm3 (0.16-1.47); MONOCYTES PERCENT AUTO 11 % (4-13); Mean Corpuscular HGB Conc 34.5 g/dL (31.5-36.5); Mean Corpuscular Volume 90 fL (80-100); Mean Platelet Volume 9.4 fL (9.1-12.4); NEUTROPHILS ABSOLUTE AUTO 13.05 K/mm3 (1.96-9.15); NEUTROPHILS PERCENT AUTO 80 % (41-73); Platelet Count 468 K/mm3 (150-400); RDW Coefficient Variation 13.8 % (11.7-14.2); RDW Standard Deviation 45.6 fL (35.1-46.3); Red Blood Cell Count 2.84 M/mm3 (4.30-5.90); White Blood Cell Count 16.28 K/mm3 (4.00-11.30)
[2022-10-31 08:02] LABS: Albumin, Blood 1.7 g/dL (3.4-5.0); Albumin/Globulin Ratio 0.3 (0.8-1.8); Bilirubin, Total 0.9 mg/dL (0.1-1.0); Bun/Creatinine Ratio 8.1 (12.0-20.0); Calcium, Blood 8.2 mg/dL (8.5-10.1); Creatinine, Blood 5.81 mg/dL (0.60-1.20); Globulin, Blood 5.1 g/dL (2.2-4.0); Potassium, Blood 4.3 mmol/L (3.5-5.5); Total Protein, Blood 6.8 g/dL (6.4-8.2)
--- NOTE | 2022-10-31 08:33 | NUR ---
DR BEV PABLO ORDERED CONSULT CALLED TO OFFICE. INFORMATION LEFT FOR HIM. OFFICE STATED THEY WOULD HET A MESSAGE TO HIM. CONTINUE POC.
--- NOTE | 2022-10-31 11:55 | NUR ---
EKG NOTOFED DR MARIANNE CLIFTON THAT THE EKG WAS COMPLETE. CONTINUE POC.
--- NOTE | 2022-10-31 18:34 | NUR ---
EVENING NOTE EKG DONE. MEDICAL STUDENT HERE TO TAKE A COPY. NO REOCCURANCE OF HIS CHEST PAIN. DR PABLO HERE AT 1800 TO REMOVE RIGHT CHEST PERMA CATH. PRESSURE HELD FOR [address] PABLO DIRECTION. NO DRAINGE, SWELLING OR CREPITUS NOTED. PT TOLERATED WELL. CURRENTLY NIBBLING AT DINNER. VSS. CBG COVERED BREAKFAST AND LUNCH. ABLE TO GIVEN COREG THIS EVENING. JULISA EDEMA. PROVIDED A FOOT DROP FOOR PROTECTOR TO HELP WEDGE AND PROTECT THE LEFT HIP. HE LIKES TO SIT WITHTHE LEFT LEG FLOPPED OVER AND HYPEREXTENDED. THE BOOT ALLOWS FOR POSITIONING AND KEEPING HIS TOES UPRIGHT INSTEAD OF EXTERNALLY ROTATED. HE EXPRESSED IMPROVED COMFORT WITH NEW POSITIONING DEVICE. CONTINUE POC,.
[2022-11-01 06:02] LABS: BASOPHILS ABSOLUTE AUTO 0.05 K/mm3 (0.00-0.23); BASOPHILS PERCENT AUTO 0 % (0-2); EOSINOPHILS ABSOLUTE AUTO 0.31 K/mm3 (0.00-0.68); EOSINOPHILS PERCENT AUTO 2 % (0-6); Hematocrit 24.8 % (37.0-53.0); Hemoglobin 8.4 g/dL (13.5-17.5); IMMATURE GRAN PERCENT AUTO 1 % (0-1); LYMPHOCYTES ABSOLUTE AUTO 1.37 K/mm3 (0.84-5.20); LYMPHOCYTES PERCENT AUTO 9 % (21-46); MONOCYTES ABSOLUTE AUTO 1.47 K/mm3 (0.16-1.47); MONOCYTES PERCENT AUTO 10 % (4-13); Mean Corpuscular HGB 30.7 pg (26.0-34.0); Mean Corpuscular HGB Conc 33.9 g/dL (31.5-36.5); Mean Corpuscular Volume 91 fL (80-100); Mean Platelet Volume 9.5 fL (9.1-12.4); NEUTROPHILS ABSOLUTE AUTO 11.22 K/mm3 (1.96-9.15); NEUTROPHILS PERCENT AUTO 77 % (41-73); Platelet Count 519 K/mm3 (150-400); RDW Coefficient Variation 13.7 % (11.7-14.2); RDW Standard Deviation 45.4 fL (35.1-46.3); Red Blood Cell Count 2.74 M/mm3 (4.30-5.90); White Blood Cell Count 14.62 K/mm3 (4.00-11.30)
[2022-11-01 06:34] LABS: Albumin, Blood 1.6 g/dL (3.4-5.0); Albumin/Globulin Ratio 0.3 (0.8-1.8); Bilirubin, Total 1.1 mg/dL (0.1-1.0); Bun/Creatinine Ratio 8.7 (12.0-20.0); Calcium, Blood 8.4 mg/dL (8.5-10.1); Creatinine, Blood 6.99 mg/dL (0.60-1.20); Globulin, Blood 5.1 g/dL (2.2-4.0); Potassium, Blood 4.3 mmol/L (3.5-5.5); Total Protein, Blood 6.7 g/dL (6.4-8.2)
--- NOTE | 2022-11-01 07:23 | NUR ---
A/OX3-4; FLUCTUATES T/O SHIFT. CONFUSED/ILLOGICAL AT TIMES, FORGETFUL. GENERALLY COOPERATIVE WITH CARE. 4L VIA NC SPO2 MID 90s. SWAPPED TO CPAP (WITH 4L BLEED-IN) FOR A SMALL AMOUNT OF TIME; PATIENT REFUSED TO WEAR AND KEPT REMOVING. DESATS TO LOW 80s WHEN PATIENT BRIEFLY REMOVES OXYGEN. LUNGS DIMIN BLL. THIS RN DID NOT HEAR COUGH. Q2 TURN OVERNIGHT; C/O PAIN TO LEFT HIP WITH REPOSITIONING; REQUESTED PRN ANALGESICS MUTLIPLE TIMES THIS SHIFT; GIVEN PER EMAR ORDERS. BEDREST; NONWEIGHT-BEARING ON LLE D/T FX. CARE CLUSTERED/ SLEEP PROMOTED. BED ALARM SET. CALL LIGHT IN REACH; ENCOURAGED TO MAKE NEEDS KNOWN
--- NOTE | 2022-11-01 08:08 | NUR ---
Dialysis pt transfered via bed for dialysis. Held coreg,lasix and xaroxyn. COntinue poc.
--- NOTE | 2022-11-01 13:25 | NUR ---
RETURN DIALYSIS PT TOLERATED WELL. STATED THAT, "IT WASN'T TO BAD." CHECKED HIS CBG AFTER RETURN. NO COVERAGE NEEDED. HE IS EATING LUNCH. HE REQUESTED PAIN MEDICATION FOR GENERALIZED DISCOMFORT. CONTINUE POC.
--- NOTE | 2022-11-02 05:21 | NUR ---
GROUP WORK PROGRAM DIRECTOR SUMMARY: A&Ox3-4. EXCESSIVELY SLEEPY AND UNCOOPERATIVE WITH CARE. DECLINED ALL OFFERS TO REPOSITION. ALLOWED CHECK OF BLOOD GLUCOSE BUT DENIED ADMINISTRATION OF INSULIN OR HEPARIN AND REFUSED ALL PO MEDS AFTER REQUESTING PRN PAIN MEDS. THIS AM HE DECLINED BLOOD DRAW. WHEN ASKED WHY, HE STATED HE DID NOT WANT TO BE TOUCHED. WHEN ASKED IF HE WAS WANTING TO PURSUE ANOTHER TREATMENT PATHWAY HE HAS REFUSED ALL MEDS AND BLOOD DRAW, HE STARED STRAIGHT AHEAD, PURSED HIS LIPS AND DID NOT RESPOND. WHEN ASKED IF HE WAS THINKING OR JUST DID NOT WANT TO TALK ABOUT IT, HE SNAPPED BACK STATING HE DID NOT WANT TO TALK ABOUT IT. VERY IRRITABLE, UNCOOPERATIVE AND UNWILLING TO DISCUSS CONCERNS. AUTOMATION CLERK NOTIFIED D/T REFUSING ALL MEDS AND CARE. VSS. GLUCOSE AT BEDTIME 147 BUT DID NOT RECEIVE LANUTS D/T REFUSAL. REFUSED CPAP AND BI-OX LAST NIGHT. WILL REPORT TO ONCOMING RN.
[2022-11-02 08:40] LABS: BASOPHILS ABSOLUTE AUTO 0.06 K/mm3 (0.00-0.23); BASOPHILS PERCENT AUTO 0 % (0-2); EOSINOPHILS ABSOLUTE AUTO 0.15 K/mm3 (0.00-0.68); EOSINOPHILS PERCENT AUTO 1 % (0-6); Hematocrit 27.4 % (37.0-53.0); Hemoglobin 9.1 g/dL (13.5-17.5); IMMATURE GRAN ABSOLUTE AUTO 0.15 K/mm3 (0.00-0.10); IMMATURE GRAN PERCENT AUTO 1 % (0-1); LYMPHOCYTES ABSOLUTE AUTO 1.35 K/mm3 (0.84-5.20); LYMPHOCYTES PERCENT AUTO 9 % (21-46); MONOCYTES ABSOLUTE AUTO 1.55 K/mm3 (0.16-1.47); MONOCYTES PERCENT AUTO 10 % (4-13); Mean Corpuscular HGB 30.5 pg (26.0-34.0); Mean Corpuscular HGB Conc 33.2 g/dL (31.5-36.5); Mean Corpuscular Volume 92 fL (80-100); Mean Platelet Volume 9.3 fL (9.1-12.4); NEUTROPHILS ABSOLUTE AUTO 12.64 K/mm3 (1.96-9.15); NEUTROPHILS PERCENT AUTO 80 % (41-73); Platelet Count 624 K/mm3 (150-400); RDW Coefficient Variation 13.8 % (11.7-14.2); RDW Standard Deviation 46.8 fL (35.1-46.3); Red Blood Cell Count 2.98 M/mm3 (4.30-5.90)
[2022-11-02 08:59] LABS: Albumin, Blood 1.7 g/dL (3.4-5.0); Albumin/Globulin Ratio 0.3 (0.8-1.8); Bilirubin, Total 0.6 mg/dL (0.1-1.0); Bun/Creatinine Ratio 8.4 (12.0-20.0); Calcium, Blood 8.2 mg/dL (8.5-10.1); Creatinine, Blood 6.05 mg/dL (0.60-1.20); Globulin, Blood 5.6 g/dL (2.2-4.0); Potassium, Blood 4.5 mmol/L (3.5-5.5); Total Protein, Blood 7.3 g/dL (6.4-8.2)
--- NOTE | 2022-11-02 12:24 | NUR ---
NO ACUTE CHANGES SINCE ASSUMPTION OF CARE AT 0700. PATIENT HAS MODERATE AMOUNT OF PAIN TO LEFT HIP, MEDICATED WITH PERCOCET & MORPHINE PER EMAR. SATS >95% ON 2L, PATIENT FREQUENTLY TAKES O2 OFF AND SATS MAINTAINING >92%. ROOM AIR CURRENTLY. Q2 TURNS PATIENT ALLOWS. CALLS APPROPRIATLY, IN REACH.
[2022-11-03 06:26] LABS: BASOPHILS ABSOLUTE AUTO 0.05 K/mm3 (0.00-0.23); BASOPHILS PERCENT AUTO 0 % (0-2); EOSINOPHILS ABSOLUTE AUTO 0.28 K/mm3 (0.00-0.68); EOSINOPHILS PERCENT AUTO 2 % (0-6); Hematocrit 25.7 % (37.0-53.0); Hemoglobin 8.4 g/dL (13.5-17.5); IMMATURE GRAN ABSOLUTE AUTO 0.15 K/mm3 (0.00-0.10); IMMATURE GRAN PERCENT AUTO 1 % (0-1); LYMPHOCYTES ABSOLUTE AUTO 1.52 K/mm3 (0.84-5.20); LYMPHOCYTES PERCENT AUTO 10 % (21-46); MONOCYTES ABSOLUTE AUTO 1.51 K/mm3 (0.16-1.47); MONOCYTES PERCENT AUTO 10 % (4-13); Mean Corpuscular HGB 30.1 pg (26.0-34.0); Mean Corpuscular HGB Conc 32.7 g/dL (31.5-36.5); Mean Corpuscular Volume 92 fL (80-100); Mean Platelet Volume 9.7 fL (9.1-12.4); NEUTROPHILS PERCENT AUTO 77 % (41-73); Platelet Count 617 K/mm3 (150-400); RDW Coefficient Variation 13.9 % (11.7-14.2); Red Blood Cell Count 2.79 M/mm3 (4.30-5.90); White Blood Cell Count 15.21 K/mm3 (4.00-11.30)
--- NOTE | 2022-11-03 06:28 | NUR ---
DERMATOLOGY PHYSICIAN SUMMARY: A&Ox4. PLEASANT AND COOPERATIVE WITH CARE TODAY, A HYDE CONTRAST FROM THE PREVIOUS NIGHT. AGREEABLE TO ALL MEDICATIONS, CARE AND LAB DRAWS. VSS. O2 @ 4L/min VIA NC. PLAN FOR HEMODIALYSIS TODAY. MEDICATED x2 FOR HIP PAIN T/O THE NIGHT. DECLINED TURN D/T PAIN AND DECLINED PAIN MEDS, BUT WAS KIND AND POLITE ABOUT DECLINING. WAS NOT KEPT NPO LAST NIGHT HE IS NOT HAVING PERMACATH REPLACED UNTIL NEXT WEEK. WILL REPORT TO ONCOMING RN.
[2022-11-03 07:15] LABS: Albumin, Blood 1.6 g/dL (3.4-5.0); Anion Gap 9 mmol/L (6-16); Blood Urea Nitrogen 57 mg/dL (8-24); Bun/Creatinine Ratio 8.2 (12.0-20.0); CO2, Blood 27 mmol/L (21-32); Calcium, Blood 8.2 mg/dL (8.5-10.1); Chloride, Blood 95 mmol/L (98-108); Creatinine, Blood 6.95 mg/dL (0.60-1.20); Glomerular Filtration Rate 9 (60-); Glucose, Blood 142 mg/dL (70-99); Phosphorus, Blood 6.7 mg/dL (2.5-4.9); Potassium, Blood 4.6 mmol/L (3.5-5.5); Sodium, Blood 131 mmol/L (136-145)
--- NOTE | 2022-11-03 15:50 | NUR ---
SHIFT SUMMARY PT RESTING QUIETLY AT START OF SHIFT. WOKE EASILY FOR CARE. PT WITH ESRD, TAKEN DOWN FOR DIALYSIS TODAY; TOLERATED WELL. PT IS CURRENTLY NPO FOR PERMA CATH PLACEMENT THIS AFTERNOON OR EVENING PER DR LYNN. DIALYSIS IS CURRENTLY USING L ARM FISTULA. PT HAS BEEN IRRITABLE OFF AND ON MOST OF DAY. DOES NOT WANT TO HAVE A PERMA CATH PLACEMENT. PER REPORT, PT DID NOT WANT DIALYSIS TO USE THE FISTULA FOR LAST TREATMENT. PT DOES SEEM CONFUSED AND FORGETFUL AT TIMES. PT ON 1L O2 VIA N/C WITH BIOX IN MID 90'S. RESTING QUIETLY AT THIS TIME. CALL LT IN REACH.
[2022-11-04 04:56] LABS: BASOPHILS ABSOLUTE AUTO 0.05 K/mm3 (0.00-0.23); BASOPHILS PERCENT AUTO 0 % (0-2); EOSINOPHILS ABSOLUTE AUTO 0.21 K/mm3 (0.00-0.68); EOSINOPHILS PERCENT AUTO 2 % (0-6); Hematocrit 24.4 % (37.0-53.0); Hemoglobin 8.2 g/dL (13.5-17.5); IMMATURE GRAN ABSOLUTE AUTO 0.09 K/mm3 (0.00-0.10); IMMATURE GRAN PERCENT AUTO 1 % (0-1); LYMPHOCYTES ABSOLUTE AUTO 1.32 K/mm3 (0.84-5.20); LYMPHOCYTES PERCENT AUTO 9 % (21-46); MONOCYTES ABSOLUTE AUTO 1.39 K/mm3 (0.16-1.47); MONOCYTES PERCENT AUTO 10 % (4-13); Mean Corpuscular HGB 30.5 pg (26.0-34.0); Mean Corpuscular HGB Conc 33.6 g/dL (31.5-36.5); Mean Corpuscular Volume 91 fL (80-100); Mean Platelet Volume 9.1 fL (9.1-12.4); NEUTROPHILS ABSOLUTE AUTO 11.08 K/mm3 (1.96-9.15); NEUTROPHILS PERCENT AUTO 78 % (41-73); Platelet Count 635 K/mm3 (150-400); RDW Coefficient Variation 13.6 % (11.7-14.2); RDW Standard Deviation 45.1 fL (35.1-46.3); Red Blood Cell Count 2.69 M/mm3 (4.30-5.90); White Blood Cell Count 14.14 K/mm3 (4.00-11.30)
[2022-11-04 05:12] LABS: Albumin, Blood 1.6 g/dL (3.4-5.0); Anion Gap 8 mmol/L (6-16); Blood Urea Nitrogen 45 mg/dL (8-24); Bun/Creatinine Ratio 7.9 (12.0-20.0); CO2, Blood 31 mmol/L (21-32); Calcium, Blood 8.4 mg/dL (8.5-10.1); Chloride, Blood 95 mmol/L (98-108); Creatinine, Blood 5.67 mg/dL (0.60-1.20); Glomerular Filtration Rate 11 (60-); Glucose, Blood 123 mg/dL (70-99); Phosphorus, Blood 5.8 mg/dL (2.5-4.9); Potassium, Blood 4.1 mmol/L (3.5-5.5); Sodium, Blood 134 mmol/L (136-145)
--- NOTE | 2022-11-04 06:49 | NUR ---
NO ACUTE CHANGES OVERNIGHT. BEHAVIORAL ISSUES DISCUSSED WITH ONCOMING RN.
--- NOTE | 2022-11-04 16:51 | NUR ---
SHIFT SUMMARY PT SLEEPING AT START OF SHIFT, REFUSING ALL CARE WHEN WOKE. PT CONTINUED TO REFUSE MOST ALL CARE THRU REMAINDER OF THE DAY. PT REFUSED TO TAKE AM MEDICATIONS, INSULIN, AND REFUSING CBG'S. PT ALSO C/O BEING REPOSITIONED IN BED TO PREVENT SKIN BREAKDOWN. PT IS VERY IRRITABLE AND GRUMPY TO EVERYONE. PT REFUSED TO EAT BREAKFAST OR LUNCH TO PRESENT, THOUGH SAT UPRIGHT AND ENCOURAGED. IV ABX GIVEN PER EMAR. STAT COVID TEST DONE FOR POSSIBLE D/C BACK TO [facility], BUT UNABLE TO DO SO UNTIL SUNDAY NOW, PER CARE MANAGEMENT. ZOOM MEETING DONE WITH DR BACON, NEPHROLOGY. NEW ORDERS PLACED. PT TO USE L ARM FISTULA FOR DIALYSIS, SINCE IT IS WORKING, INSTEAD OF PLACING ANOTHER PERMA CATH. PT HAS DENIED NEEDS TO PRESENT. CALL LT IN REACH.
[2022-11-04 17:36] LABS: SARS-Cov-2 (COVID-19) PCR, MMC NEGATIVE (NEGATIVE)
--- NOTE | 2022-11-05 02:57 | NUR ---
SHIFT SUMMARY; PATIENT HAD NO ACUTE CHANGES IN CONDITION DURING NOC SHIFT. PER REPORT FROM DAY SHIFT HE DID NOT EAT ALL DAY. THIS RN AND TRISTEN THROUGH FREIGHT ENGINEER OFFER PATIENT REPEATEDLY SNACKS. HE IS NOTED TO DRINK A PARTIAL ENSURE DRINK AND A FEW CRACKERS. HE DOES TAKE HIS PO MEDICATIONS AND ALLOWS TURNING Q2 HOURS DURING NIGHT. HE VOIDS X 1. NO BM DURING NO SHIFT. VITAL SIGNS ARE STABLE AND HE IS NOT FEBRILE. WILL CONTINUE TO MONITOR THIS PATIENT CLOSELY UNTIL REPORT AND HAND OFF TO DAY SHIFT RN.
--- NOTE | 2022-11-05 15:15 | NUR ---
TRANSFER NOTE: PT ARRIVED FROM ED VIA WC ESCORTED BY IMPLEMENTATION ENGINEER. PT A&O X4, PLEASANT, AND IN ALOT OF PAIN. PT HAD SEVERE BACK PAIN. PT TRANSFER SBA ASSIST FROM WC TO BED. PT HAD CAR TRAORE'S, RED CREDIT CARD AND $4.00 IN HIS POCKET. PERSONALS PLACED IN LOCK BOX IN ROOM CLOSET. AMIRAH GO NOTIFIED OF PERSONALS PRESENT AND PLACEMENT. PT TROPONIN LEVELS TRENDING UP, LAST TROPONIN 157 KYMBERLY EDWARDS NOTIFED AND NEW ORDERS PLACED. PT PLACED ON NPO ORDER AND ASSEMBLY INSTRUCTIONS WRITER DR. CEJA CONTACTED BY DR. TRAYLOR TO SEE PT. PT RECEVIED TYNEOL 650MG FOR PAIN, NO OTHER ORDERS FOR PAIN PERSCRIBED AT THIS TIME. PT PT LAB 12.4H. PT IN BED WITH CALL LIGHT WITHIN REACH.
--- NOTE | 2022-11-05 19:23 | NUR ---
SHIFT SUMMARY; PT A&O X4, WITHDRAWN, FLAT EFFECT AND COOPERATIVE. PT HAD NO COMPLAINTS OF PAIN THROUGHOUT SHIFT. PT HAD COMPLAINTS OF CONSTIPATION, DR. BACON PLACED ORDERS FOR BOWEL CARE. PT ABLE TO HAVE A LARGE BM LATER IN THE SHIFT. PT RECVIED ABX WITH NO S/S OF ADVERSE EFFECTS. PT HAD FAMILY AT BEDSIDE DURING THE SHIFT. PT IN BED WITH CALL LIGHT WITHIN REACH.
[2022-11-06 05:09] LABS: BASOPHILS ABSOLUTE AUTO 0.05 K/mm3 (0.00-0.23); BASOPHILS PERCENT AUTO 0 % (0-2); EOSINOPHILS ABSOLUTE AUTO 0.16 K/mm3 (0.00-0.68); EOSINOPHILS PERCENT AUTO 1 % (0-6); Hematocrit 25.2 % (37.0-53.0); Hemoglobin 8.4 g/dL (13.5-17.5); IMMATURE GRAN PERCENT AUTO 1 % (0-1); LYMPHOCYTES ABSOLUTE AUTO 1.37 K/mm3 (0.84-5.20); LYMPHOCYTES PERCENT AUTO 12 % (21-46); MONOCYTES ABSOLUTE AUTO 1.35 K/mm3 (0.16-1.47); MONOCYTES PERCENT AUTO 12 % (4-13); Mean Corpuscular HGB Conc 33.3 g/dL (31.5-36.5); Mean Corpuscular Volume 90 fL (80-100); Mean Platelet Volume 9.2 fL (9.1-12.4); NEUTROPHILS ABSOLUTE AUTO 8.21 K/mm3 (1.96-9.15); NEUTROPHILS PERCENT AUTO 73 % (41-73); Platelet Count 717 K/mm3 (150-400); RDW Coefficient Variation 13.5 % (11.7-14.2); RDW Standard Deviation 44.4 fL (35.1-46.3); White Blood Cell Count 11.24 K/mm3 (4.00-11.30)
[2022-11-06 06:01] LABS: Albumin, Blood 1.5 g/dL (3.4-5.0); Anion Gap 13 mmol/L (6-16); Blood Urea Nitrogen 85 mg/dL (8-24); CO2, Blood 28 mmol/L (21-32); Calcium, Blood 8.4 mg/dL (8.5-10.1); Chloride, Blood 91 mmol/L (98-108); Glucose, Blood 133 mg/dL (70-99); Potassium, Blood 4.6 mmol/L (3.5-5.5); Sodium, Blood 132 mmol/L (136-145)
[2022-11-06 06:02] LABS: Bun/Creatinine Ratio 9.8 (12.0-20.0); Creatinine, Blood 8.67 mg/dL (0.60-1.20); Glomerular Filtration Rate 7 (60-); Phosphorus, Blood 8.6 mg/dL (2.5-4.9)
--- NOTE | 2022-11-06 07:06 | NUR ---
A/OX4; CONFUSED/ILLOGICAL AT TIMES (REFUSING BRIEF CHANGE WHEN TOLD IT IS WET), FORGETFUL. DENIES PAIN THIS SHIFT. CPAP ON ROOM AIR. Q2 TURNS. BEDREST; NONWEIGHT-BEARING ON LLE D/T FX. HEEL PROTECTORS. COCCYX EXCORIATION; DRSG CHANGED THIS SHIFT. SLEEP PROMOTED. BED ALARM SET. CALL LIGHT IN REACH; ENCOURAGED TO MAKE NEEDS KNOWN
[2022-11-06] MEDS ORDERED: Ampicillin Sodiu2 G1 IV (11:21)
[2022-11-06] MEDS ORDERED: METO2.5 (11:30)
[2022-11-06] MEDS ORDERED: MORPHINE SULFAT10 MG (11:32)
[2022-11-06] MEDS ORDERED: MORPHINE SULFAT10 MG PO (11:34)
[2022-11-06] MEDS ORDERED: DOCUZEN 8.6-501 EACH PO (11:38)
[2022-11-06 14:17] LABS: Influenza A, PCR NEGATIVE (NEGATIVE); Influenza B, PCR NEGATIVE (NEGATIVE); Resp Syncytial Virus, PCR NEGATIVE (NEGATIVE); SARS-Cov-2 (COVID-19) PCR, MMC NEGATIVE (NEGATIVE)
--- NOTE | 2022-11-06 18:21 | NUR ---
DISCHARGE NOTE PT DISCHARGED TO [facility], WHERE HE LIVES CURRENTLY. TRANSPORTED VIA WHEELCHAIR VAN WITH [facility]. ALL PAPERWORK SENT TO THE FACILITY VIA THE OB GYN. ALL PERSONAL BELONGINGS GIVEN TO THE PT.
== END 2022-11-06 17:33 | disposition home or self-care (01) | DRG 314 ==
LOC: ER 07:35 → ERHOLD 13:44 → MEDS 13:44 → PCU 13:44 → MEDS 10-28 11:15 → ENPENDDIS 11-04 18:00 → MEDS 11-06 17:33
PROVIDERS: Emergency Medicine; Family Medicine; Internal Medicine Nephrology; Nurse Practitioner Acute Care; ADMIT Hospitalist
PROC: 5A09357 Assistance with Respiratory Ventilation, Less than 24 Consecutive Hours, Continuous Positive Airway Pressure (ICD-10-PCS; principal; 2022-10-26)
PROC: 3E03329 Introduction of Other Anti-infective into Peripheral Vein, Percutaneous Approach (ICD-10-PCS; 2022-10-26)
PROC: 5A1D70Z Performance of Urinary Filtration, Intermittent, Less than 6 Hours Per Day (ICD-10-PCS; 2022-10-28)
PROC: 02PY33Z Removal of Infusion Device from Great Vessel, Percutaneous Approach (ICD-10-PCS; 2022-10-31)
DX: T80.211A Bloodstream infection due to central venous catheter, initial encounter (principal); A41.81 Sepsis due to Enterococcus; S32.492A Other specified fracture of left acetabulum, initial encounter for closed fracture; J96.01 Acute respiratory failure with hypoxia; N18.6 End stage renal disease; S32.592A Other specified fracture of left pubis, initial encounter for closed fracture; I31.39 Other pericardial effusion (noninflammatory); N17.9 Acute kidney failure, unspecified; I69.354 Hemiplegia and hemiparesis following cerebral infarction affecting left non-dominant side; I13.2 Hypertensive heart and chronic kidney disease with heart failure and with stage 5 chronic kidney disease, or end stage renal disease; I50.42 Chronic combined systolic (congestive) and diastolic (congestive) heart failure; D63.1 Anemia in chronic kidney disease; Z66 Do not resuscitate; E11.22 Type 2 diabetes mellitus with diabetic chronic kidney disease; E11.42 Type 2 diabetes mellitus with diabetic polyneuropathy; G47.33 Obstructive sleep apnea (adult) (pediatric); K59.00 Constipation, unspecified; Z74.09 Other reduced mobility; E83.39 Other disorders of phosphorus metabolism; E78.5 Hyperlipidemia, unspecified; F32.A Depression, unspecified; W18.30XA Fall on same level, unspecified, initial encounter; Z20.822 Contact with and (suspected) exposure to COVID-19; Y83.8 Other surgical procedures as the cause of abnormal reaction of the patient, or of later complication, without mention of misadventure at the time of the procedure; Z99.2 Dependence on renal dialysis; Z88.8 Allergy status to other drugs, medicaments and biological substances; Z79.899 Other long term (current) drug therapy; Z79.01 Long term (current) use of anticoagulants; Z79.891 Long term (current) use of opiate analgesic; Z79.4 Long term (current) use of insulin; Z95.828 Presence of other vascular implants and grafts; Z79.02 Long term (current) use of antithrombotics/antiplatelets; Z79.82 Long term (current) use of aspirin; Z99.81 Dependence on supplemental oxygen; Z98.890 Other specified postprocedural states
CPT/HCPCS: 0241U; 36415; 71045; 72131; 72192; 80053; 80069; 80202; 82607; 82728; 82746; 82947; 83540; 83550; 83605; 83735; 84145; 84484; 85025; 85027; 85045; 85060; 87040; 87077; 87186; 93005; 93010; 93306; 94660; 94762; 96374; 96375; 96376; 99285-25; A9270; J0290; J0696; J0881; J1644; J1815; J2270; J2405; J3370; J7050; Q5106; U0004

== ENCOUNTER 2022-12-04 07:49 | Inpatient (IN) | payer OTHER ==
[~2022-12-04] VITALS: Ht 193 cm; Wt 127.0 kg
[~2022-12-04 07:49] MED LIST changes: +Ampicillin Sodiu2 G1 IV; +DOCUZEN 8.6-501 EACH PO; +METO2.5; +MORPHINE SULFAT10 MG; +MORPHINE SULFAT10 MG PO
[2022-12-04 09:47] LABS: BASOPHILS ABSOLUTE AUTO 0.04 K/mm3 (0.00-0.23); BASOPHILS PERCENT AUTO 0 % (0-2); EOSINOPHILS ABSOLUTE AUTO 0.02 K/mm3 (0.00-0.68); EOSINOPHILS PERCENT AUTO 0 % (0-6); Hematocrit 21.2 % (37.0-53.0); IMMATURE GRAN PERCENT AUTO 1 % (0-1); LYMPHOCYTES ABSOLUTE AUTO 1.23 K/mm3 (0.84-5.20); LYMPHOCYTES PERCENT AUTO 5 % (21-46); MONOCYTES PERCENT AUTO 10 % (4-13); Mean Corpuscular HGB 28.8 pg (26.0-34.0); Mean Corpuscular Volume 87 fL (80-100); Mean Platelet Volume 8.7 fL (9.1-12.4); NEUTROPHILS ABSOLUTE AUTO 22.31 K/mm3 (1.96-9.15); NEUTROPHILS PERCENT AUTO 85 % (41-73); Platelet Count 539 K/mm3 (150-400); RDW Coefficient Variation 14.1 % (11.7-14.2); RDW Standard Deviation 44.7 fL (35.1-46.3); Red Blood Cell Count 2.43 M/mm3 (4.30-5.90)
[2022-12-04 10:04] LABS: Albumin, Blood 1.3 g/dL (3.4-5.0); Albumin/Globulin Ratio 0.2 (0.8-1.8); Bilirubin, Total 0.5 mg/dL (0.1-1.0); Bun/Creatinine Ratio 7.4 (12.0-20.0); Calcium, Blood 7.9 mg/dL (8.5-10.1); Creatinine, Blood 6.8 mg/dL (0.60-1.20); Globulin, Blood 5.6 g/dL (2.2-4.0); Potassium, Blood 4.2 mmol/L (3.5-5.5); Total Protein, Blood 6.9 g/dL (6.4-8.2)
[2022-12-04] MEDS ORDERED: Prozac20 MG PO (16:55)
[2022-12-04] MEDS ORDERED: GABA100 PO (16:56)
[2022-12-04] MEDS ORDERED: SEVE800 PO (17:06)
--- NOTE | 2022-12-04 17:55 | NUR ---
SHIFT SUMMARY PT A/O X4; PLEASANT AND COOPERATIVE WITH CARE. PT IS GENERALLY VERY WEAK AND REPORTS "THAT HE HAS NOT BEEN ABLE TO RECENTLY AMBULATE". PT RECEIVED DIALYSIS AT BEDSIDE. VSS.
[2022-12-04] MEDS ORDERED: INSULANI SC (21:17)
[2022-12-04] MEDS ORDERED: HUMALOG100 UNIT/1 SC (21:18)
[2022-12-05 04:53] LABS: Hematocrit 21.7 % (37.0-53.0); Mean Corpuscular HGB 28.5 pg (26.0-34.0); Mean Corpuscular HGB Conc 32.3 g/dL (31.5-36.5); Mean Corpuscular Volume 88 fL (80-100); Mean Platelet Volume 8.8 fL (9.1-12.4); Platelet Count 568 K/mm3 (150-400); RDW Coefficient Variation 14.3 % (11.7-14.2); RDW Standard Deviation 45.4 fL (35.1-46.3); Red Blood Cell Count 2.46 M/mm3 (4.30-5.90); White Blood Cell Count 24.21 K/mm3 (4.00-11.30)
[2022-12-05 05:32] LABS: Albumin, Blood 1.3 g/dL (3.4-5.0); Anion Gap 7 mmol/L (6-16); Blood Urea Nitrogen 34 mg/dL (8-24); CO2, Blood 29 mmol/L (21-32); Calcium, Blood 8.9 mg/dL (8.5-10.1); Chloride, Blood 95 mmol/L (98-108); Creatinine, Blood 4.83 mg/dL (0.60-1.20); Glomerular Filtration Rate 13 (60-); Glucose, Blood 205 mg/dL (70-99); Magnesium, Blood 2.2 mg/dL (1.6-2.4); Phosphorus, Blood 3.1 mg/dL (2.5-4.9); Potassium, Blood 4.1 mmol/L (3.5-5.5); Sodium, Blood 131 mmol/L (136-145)
--- NOTE | 2022-12-05 05:41 | NUR ---
SHIFT SUMMARY PT A&O X 4, PT MEDICATED WITH TYLENOL FOR FEVER- SPOKE WITH HOSPITALIST RE: CONTINUING HOME MEDICATIONS- RESUMED SOME OF HOME MEDICATIONS FOR AM- PT UP TO BSC WITH SACK LIFTER - PT WEAK- PT REQUESTED TO AMBULATE TO BR - PT UNSTEADY D/T WEAKNESS - PT TO USE BSC OR URINAL UNTIL STRONGER- PT AGREED, PT WORE CPAP W/O COMPLAINTS IN THE NIGHT- BED LOW POSITION, CALL LIGHT WITHIN REACH, BED ALARM IN PLACE
[2022-12-05 09:36] LABS: Vancomycin, Random 16.5 ug/mL
[2022-12-05 11:58] LABS: International Normalized Ratio 1.36
[2022-12-05 15:29] LABS: RBC Count, Body Fluid 280000 /mm3 (0-0)
[2022-12-05 15:30] LABS: Body Fluid WBC Count 16140 /mm3 (0-999)
[2022-12-05 15:36] LABS: pH, Body Fluid 7.5
[2022-12-05 16:14] LABS: Glucose, Body Fluid 13 mg/dL
[2022-12-05 16:33] LABS: Protein, Body Fluid 1.4 g/dL
[2022-12-05 16:36] LABS: Lactate Dehydrogenase, Body Fl 2899 U/L
[2022-12-05 16:43] LABS: Appearance, Body Fluid Turbid (Clear); Total Cell Count, Body Fluid 100
[2022-12-05 17:17] LABS: Hematocrit 24.2 % (37.0-53.0); Hemoglobin 7.8 g/dL (13.5-17.5)
--- NOTE | 2022-12-05 19:21 | NUR ---
SHIFT SUMMARY PT RESTING QUIETLY AT START OF SHIFT. WOKE EASILY FOR CARE. NO DIALYSIS TODAY. PT SCHEDULED FOR TOMORROW; M/W/F. PT INCONTINENT OF BOWEL AND BLADDER THIS AM. PT CLEANED AND CHANGED. DR NAVARRETE IN TO SEE PT AND DISCUSS PLAN OF CARE. PT WITH CANTELOPE SIZE ABSCESS IN R LUNG. DR NAVARRETE DISCUSSED OPTIONS WITH PT. CT GUIDED PROCEDURE THEN ORDERED. PT TAKEN DOWN TO RADIOLOGY AND RETURNED LATER WITH PIGTAIL DRAIN TO R UPPER SIDE. 55Occ OF PURULENT AND VERY FOUL SMELLING FLUID EMPTIED FROM DRAIN AT END OF SHIFT. PT C/O NAUSEA AFTER RETURNING FROM PROCEDURE. ZOFRAN GIVEN. PT STILL NOT FEELING WELL AND DECLINED TO EAT DINNER AND DECLINED TO TAKE RENVELA. IV ABX GIVEN PER EMAR. PT RESTING QUIETLY AT THIS TIME. CALL LT IN REACH.
--- NOTE | 2022-12-06 05:06 | NUR ---
SHIFT SUMMARY A&O, PLEASANT, COOPERATIVE. KELLI DRAIN R SIDE WITH PURULENT, ODOROUS OUTPUT. HEAVY OUTPUT AT START OF SHIFT, SCANT OUTPUT BY END OF SHIFT. REINFORCED TEGADERM DUE TO AIR INFLATING DRAIN BAG WHICH DECREASED AIR OUTPUT. VOIDING, LAST BM 12/06. CPAP IN PLACE WHILE SLEEPING. GENERALIZED WEAKNESS, DID NOT TRANSFER TO BSC LAST NIGHT.BEDIN LOW POSITION, CALL LIGHT IN REACH. PATIENT REPORTED MODERATE PAIN, DOCTOR ORDERED NORCO FOR PAIN MANAGEMENT.
--- NOTE | 2022-12-06 08:28 | NUR ---
RN NOTE KELLI DRAIN TO R LUNG NOT HOLDING SUCTION. SMALL VOLUME OF PURULENT DRAINAGE IN BAG. TEGADERM DRESSING REINFORCED BUT THIS DID NOT HELP. DR NAVARRETE'S NURSE CALLED TO NOTIFY OF DRAIN STATUS. HEMODIALYSIS AT BEDSIDE ON THE MEDICAL UNIT THIS MORNING. C/O PAIN IN LEFT HIP AND RIGHT BACK BEHIND DRAIN PLACEMENT WHEN HE MOVES, MEDICATED THIS AM.
--- NOTE | 2022-12-06 08:34 | NUR ---
DISCRETE VM LEFT FOR DR NAVARRETE ON CELL PHONE.
[2022-12-06 09:15] LABS: Hematocrit 19.6 % (37.0-53.0); Hemoglobin 6.5 g/dL (13.5-17.5); Mean Corpuscular HGB 29.1 pg (26.0-34.0); Mean Corpuscular HGB Conc 33.2 g/dL (31.5-36.5); Mean Corpuscular Volume 88 fL (80-100); Mean Platelet Volume 8.8 fL (9.1-12.4); Platelet Count 526 K/mm3 (150-400); RDW Coefficient Variation 14.6 % (11.7-14.2); RDW Standard Deviation 46.5 fL (35.1-46.3); Red Blood Cell Count 2.23 M/mm3 (4.30-5.90); White Blood Cell Count 14.86 K/mm3 (4.00-11.30)
[2022-12-06 09:34] LABS: Albumin, Blood 1.1 g/dL (3.4-5.0); Anion Gap 7 mmol/L (6-16); Blood Urea Nitrogen 41 mg/dL (8-24); Bun/Creatinine Ratio 7.9 (12.0-20.0); CO2, Blood 28 mmol/L (21-32); Chloride, Blood 95 mmol/L (98-108); Creatinine, Blood 5.16 mg/dL (0.60-1.20); Glomerular Filtration Rate 12 (60-); Glucose, Blood 213 mg/dL (70-99); Lactate Dehydrogenase (Ld),Bld 109 U/L (100-240); Phosphorus, Blood 2.2 mg/dL (2.5-4.9); Potassium, Blood 3.8 mmol/L (3.5-5.5); Sodium, Blood 130 mmol/L (136-145); Total Protein, Blood 6.3 g/dL (6.4-8.2)
[2022-12-06 14:08] LABS: Vancomycin, Random 4.5 ug/mL
--- NOTE | 2022-12-06 16:40 | NUR ---
SHIFT SUMMARY MR MABRY HAD HEMODIALYSIS THIS MORNING, DURING WHICH 2 UNITS PRBC INFUSED WITHOUT PROBLEMS. NO UOP THIS SHIFT. DRESSING TO R CHEST WITH KELLI DRAIN WHICH HAS KEPT SUCTION. SMALL VOLUME OF OUTPUT FROM THE DRAIN. TURNED AND REPOSITIONED IN BED, HE HAS LIMITED ROM, LEFT SIDED WEAKNESS AND GENERALISED WEAKNESS. L HIP PAIN CONTROLLED WITH MEDS AND REPOSITIONING. BED LOW, CALL LIGHT IN REACH. BED ALARM IN USE.
[2022-12-07 05:17] LABS: Hematocrit 25.6 % (37.0-53.0); Hemoglobin 8.6 g/dL (13.5-17.5); Mean Corpuscular HGB 28.5 pg (26.0-34.0); Mean Corpuscular HGB Conc 33.6 g/dL (31.5-36.5); Mean Corpuscular Volume 85 fL (80-100); Mean Platelet Volume 8.6 fL (9.1-12.4); Platelet Count 528 K/mm3 (150-400); RDW Coefficient Variation 15.5 % (11.7-14.2); RDW Standard Deviation 47.5 fL (35.1-46.3); Red Blood Cell Count 3.02 M/mm3 (4.30-5.90); White Blood Cell Count 15.47 K/mm3 (4.00-11.30)
[2022-12-07 05:49] LABS: Albumin, Blood 1.2 g/dL (3.4-5.0); Anion Gap 6 mmol/L (6-16); Blood Urea Nitrogen 34 mg/dL (8-24); Bun/Creatinine Ratio 8.2 (12.0-20.0); CO2, Blood 29 mmol/L (21-32); Calcium, Blood 7.8 mg/dL (8.5-10.1); Chloride, Blood 95 mmol/L (98-108); Creatinine, Blood 4.16 mg/dL (0.60-1.20); Glomerular Filtration Rate 16 (60-); Glucose, Blood 101 mg/dL (70-99); Phosphorus, Blood 2.2 mg/dL (2.5-4.9); Potassium, Blood 3.9 mmol/L (3.5-5.5); Sodium, Blood 130 mmol/L (136-145)
--- NOTE | 2022-12-07 06:47 | NUR ---
SHIFT SUMMARY PT A&O X 4, KELLI DRAIN TO RIGHT UPPER SIDE- SMALL AMOUNT OF DRAINAGE T/O NIGHT- PT MEDICATED FOR PAIN ON PRIOR SHIFT- PT INCONTIENT OF URINE AND BM- PT ABLE TO REPOSITION IN BED- PT HAD DIALYSIS AND 2 UNITS PRBC- BED LOW POSITION, CALL LIGHT WITHIN REACH
[2022-12-07 09:32] LABS: Vancomycin, Random 24.7 ug/mL
--- NOTE | 2022-12-07 18:58 | NUR ---
SHIFT SUMMARY: PATIENT A&OX4. SLOW TO RESPOND. CALM, PLEASANT, AND COOPERATIVE c CARE. USES CALL LIGHT APPROPRIATELY AND ABLE TO ADVOCATE FOR HIS NEEDS. PATIENT DENIES CP/CHEST PRESSURE. LUNGS CLEAR/DIM T/O TO AUSCULTATION. DENIES SOB. BEGINNING OF SHIFT PATIENT WAS ON O2 3L VIA NC c SPO2 OF 100%. PATIENT WAS PLACED ON RA c SPO2 OF 95-97% T/O SHIFT. KELLI DRAIN TO RU SIDE HAS MINIMAL DRAINAIGE c TINY CLOTS T/O SHIFT. PATIENT REPORTS OF BACK PAIN. MEDICATED X2 c NORCO T/O SHIFT. PATIENT REPORTS OF HAVING ADEQUATE RELIEF. INCONTINENCE OF URINE AND STOOL. ATTENDS CHANGES AND REPOSITIONED T/O SHIFT. MIPELEX DRESSING TO COCCYX WAS CHANGED TODAY. CHEST CT WAS DONE THIS PM, AWAITING FOR RESULT. IV TO RAC SALINE LOCKED. BED ALARM ON FOR SAFETY. CALL LIGHT IN REACH.
--- NOTE | 2022-12-08 05:24 | NUR ---
LAURA SLEPT ALL NIGHT. HE APPEARS TO BE VERY WITHDRAWN. DR MCCARTY HAD TO PULL HIS KELLI DRAIN IT HAD DISLODGED SHOWN ON CT YESTERDAY AFTERNOON. HE WILL HAVE ANOTHER PLACED TODAY IN [place]. LAURA IS ALSO SCHEDULED FOR DIALYSIS PER HIS REGULAR SCHEDULE. LABS WERE THEREFORE NOT DRAWN HIS POWERGLIDE IV NO LONGER WORKS
[2022-12-08 07:46] LABS: Hematocrit 25.2 % (37.0-53.0); Hemoglobin 8.4 g/dL (13.5-17.5); Mean Corpuscular HGB 28.8 pg (26.0-34.0); Mean Corpuscular HGB Conc 33.3 g/dL (31.5-36.5); Mean Corpuscular Volume 86 fL (80-100); Mean Platelet Volume 8.5 fL (9.1-12.4); Platelet Count 529 K/mm3 (150-400); RDW Coefficient Variation 15.2 % (11.7-14.2); RDW Standard Deviation 48.4 fL (35.1-46.3); Red Blood Cell Count 2.92 M/mm3 (4.30-5.90); White Blood Cell Count 17.62 K/mm3 (4.00-11.30)
[2022-12-08 08:15] LABS: Albumin, Blood 1.1 g/dL (3.4-5.0); Anion Gap 6 mmol/L (6-16); Blood Urea Nitrogen 48 mg/dL (8-24); Bun/Creatinine Ratio 9.8 (12.0-20.0); CO2, Blood 27 mmol/L (21-32); Calcium, Blood 7.7 mg/dL (8.5-10.1); Chloride, Blood 96 mmol/L (98-108); Creatinine, Blood 4.88 mg/dL (0.60-1.20); Glomerular Filtration Rate 13 (60-); Glucose, Blood 114 mg/dL (70-99); Phosphorus, Blood 2.8 mg/dL (2.5-4.9); Potassium, Blood 4.2 mmol/L (3.5-5.5); Sodium, Blood 129 mmol/L (136-145)
--- NOTE | 2022-12-08 17:15 | NUR ---
SHIFT SUMMARY: PATIENT A&OX4. SLOW BUT APPROPRIATE TO RESPOND WHEN ASK TO ASSESMENT QUESTIONS. CALM, PLEASANT AND COOPERATIVE C CARE. PATIENT HAD DIALYSIS THIS AM AND REMOVED ABOUT 2000 MLS OF FLUIDS. RECEIVED IV ABX. KELLI DRAIN CATHETER PLACEMENT WAS DONE THIS PM, PRODUCE PURULENT, ODOROUS ABOUT 400 MLS OUTPUT. PATIENT REPORT PAIN 9/10 TO RIGHT MEDIAL RIBCAGE AND BACK. MEDICATED X1 c NORCO. PATIENT REPORTS PAIN DOWN TO 4/10. VITAL SIGNS REVIEWED. IV TO RAC SALINE LOCKED. BED ALARM ON FOR SAFETY. CALL LIGHT IN REACH.
[2022-12-09 05:07] LABS: Hematocrit 26.1 % (37.0-53.0); Hemoglobin 8.6 g/dL (13.5-17.5); Mean Corpuscular HGB 28.4 pg (26.0-34.0); Mean Corpuscular Volume 86 fL (80-100); Mean Platelet Volume 8.5 fL (9.1-12.4); Platelet Count 587 K/mm3 (150-400); RDW Coefficient Variation 15.3 % (11.7-14.2); RDW Standard Deviation 47.7 fL (35.1-46.3); Red Blood Cell Count 3.03 M/mm3 (4.30-5.90); White Blood Cell Count 14.22 K/mm3 (4.00-11.30)
[2022-12-09 05:30] LABS: Albumin, Blood 1.1 g/dL (3.4-5.0); Anion Gap 8 mmol/L (6-16); Blood Urea Nitrogen 33 mg/dL (8-24); Bun/Creatinine Ratio 9.2 (12.0-20.0); CO2, Blood 30 mmol/L (21-32); Calcium, Blood 7.8 mg/dL (8.5-10.1); Chloride, Blood 93 mmol/L (98-108); Creatinine, Blood 3.59 mg/dL (0.60-1.20); Glomerular Filtration Rate 19 (60-); Glucose, Blood 104 mg/dL (70-99); Phosphorus, Blood 3.1 mg/dL (2.5-4.9); Potassium, Blood 3.8 mmol/L (3.5-5.5); Sodium, Blood 131 mmol/L (136-145)
--- NOTE | 2022-12-09 09:00 | NUR ---
PT PLEASANT FLAT EFFECT. STATES SOME PAIN AT DRAIN SITE. IT IS CDI. LITE OLD SMALL BLOOD AT INCISION. COVERED. DRAINING S/S CLOUDY FLUID. DR GOLDBERG IN TO SEE THIS AM. OBSERVED DRAIN WITH THIS RN. NO NEW CONCERNS,. H/R REG, NO MURMUR NOTED. NO TELE. LUNGS CLEAR, DIM ON MID AND LOW RT. ON R.A RESP EASY, UNLABORED. BT X4 LAST BM 2 DAYS PER PT. VERY LITTLE VOIDS, ON DIALYSIS. FISTULA LEFT FORE ARM. TRILL NOTED. BED IN LOW POSITION, CALL LITE IN REACH, CALLS APPROP
[2022-12-09 10:20] LABS: Vancomycin, Random 15.1 ug/mL
--- NOTE | 2022-12-09 18:30 | NUR ---
PT PLEASANT TODAY. SOME FLAT, STATES FEELS SOME IMPROVEMEMT TODAY. VERY LITTLE DRAINAGE TODAY IN KELLI DRAIN. PT EATING SOME, NO NEW CONCERNS NOTED. BED IN LOW POSITION, CALL LITE IN REACH, CALLS APPROP
--- NOTE | 2022-12-10 07:37 | NUR ---
NO CHANGES OVERNIGHT FOR LAURA. VERY SCANT AMOUNT OF MILKY RED OUTPUT FROM RIGHT LATERAL KELLI DRAIN. NO CREPITIS OR AIR LEAKS NOTED. LAURA STILL APPEARS TO BE A VERY DEPRESSED SAD GENTLEMAN.
--- NOTE | 2022-12-10 08:00 | NUR ---
PT PLEASANT SOME FLAT EFFECT. 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 STATES PAIN IS OKAY, FEELS SOME BETTER OVERALL YEST AND TODAY. DRAIN INTACT ON RT CHEST SIDE. VALVE IS "ON", KELLI DRAIN HAS MINIMAL BROWN RED MILKY FLUID IN BAG. H/R REG, NO MURMUR NOTED. NO TELE. LUNGS CLEAR ON LEFT, AND UPPER RIGHT. DIM MID AND LOW RT. ON R.A. RESP EASY, UNLABORED. BT X4, LAST BM NOT KNOWN BY PT. VOIDS OLIGURIC, IS ON REGULAR DIALYSIS, M,W, FRI. STATES NORMAL FOR HIM. 2 ASST TO BSC AT THIS TIME. BED IN LOW POSITION, CALL LITE IN REACH, CALLS APPROP
--- NOTE | 2022-12-10 08:32 | NUR ---
SPOKE TO DR ADAM RE CBG 60 THIS AM. ORDERS TO CAHNGE LONG ACTING TO 10 U BID START TODAY.NOW. DONE
--- NOTE | 2022-12-10 18:14 | NUR ---
PT QUITE PLEASANT TODAY. DR ADDED HIS HOME MEDS TODAY. PT STATES HE FEELS TIME FOR BM. MIRALAX GIVEN TODAY. STATES SHOULD BE READY THIS [place] FOR BSC. LONG ACTING INSULIN REDUCED TODAY FROM 18 TO 10 U BID. CBG HAS BEEN GOOD. MINIMAL DISCHARGE FROM DRAIN TODAY. ABOUT 50 CC TODAY. MORE S/S AND LESS MILKY. MORE RED COLOR NOTED. PT NOT C/O PAIN TODAY. FAMILY IN TO VISIT TODAY ALSO. NO NEW CONCERNS NOTED. BED IN LOW POSITION, CALL LITE IN REACH,CALLS APROP
[2022-12-11 05:27] LABS: Hematocrit 24.6 % (37.0-53.0); Hemoglobin 8.1 g/dL (13.5-17.5); Mean Corpuscular HGB 28.2 pg (26.0-34.0); Mean Corpuscular HGB Conc 32.9 g/dL (31.5-36.5); Mean Corpuscular Volume 86 fL (80-100); Mean Platelet Volume 8.2 fL (9.1-12.4); Platelet Count 573 K/mm3 (150-400); RDW Coefficient Variation 15.3 % (11.7-14.2); RDW Standard Deviation 47.3 fL (35.1-46.3); Red Blood Cell Count 2.87 M/mm3 (4.30-5.90); White Blood Cell Count 9.46 K/mm3 (4.00-11.30)
[2022-12-11 05:47] LABS: Albumin, Blood 1.1 g/dL (3.4-5.0); Anion Gap 9 mmol/L (6-16); Blood Urea Nitrogen 50 mg/dL (8-24); Bun/Creatinine Ratio 10.9 (12.0-20.0); CO2, Blood 27 mmol/L (21-32); Calcium, Blood 7.6 mg/dL (8.5-10.1); Chloride, Blood 92 mmol/L (98-108); Glomerular Filtration Rate 14 (60-); Glucose, Blood 113 mg/dL (70-99); Phosphorus, Blood 3.7 mg/dL (2.5-4.9); Potassium, Blood 3.9 mmol/L (3.5-5.5); Sodium, Blood 128 mmol/L (136-145)
[2022-12-11 13:45] LABS: Vancomycin, Random 13.4 ug/mL
--- NOTE | 2022-12-11 18:15 | NUR ---
SHIFT SUMMARY- PT IS A/O, PLESANT AND COOPERATIVE. HE IS EATING AND DRINKING WELL. WENT FOR DIALYSIS THIS MORNING. DR. GOLDBERG CAME TO ADMINISTER MEDICATIONS INTO HIS KELLI DRAIN. HIS HAD A BM THIS SHIFT. HIS BED IS IN THE LOW POSITON AND CALL LIGHT IS WITMARY ROSENBERG.
--- NOTE | 2022-12-12 04:19 | NUR ---
SHIFT SUMMARY ADMITTED FOR ABSCESS OF RIGHT LUNG/PNEUMONIA. DNR CODE. PLAN IS FOR DC BACK TO [facility]. KELLI DRAIN IN PLACE. MINIMAL OUTPUT. HE DID CHOOSE TO REMOVE HIS CPAP MIDWAY THROUGH SHIFT. DIALYSIS PT, FISTULA IN LEFT ARM. ACHS CBG'S. ADA DIET. 2 PERSON STAND/PIVOT TO CHAIR. HX OF CVA W/LEFT SIDED DEFICITS. PAIN MEDICATION GIVEN THIS SHIFT
[2022-12-12 05:01] LABS: BASOPHILS ABSOLUTE AUTO 0.06 K/mm3 (0.00-0.23); BASOPHILS PERCENT AUTO 1 % (0-2); EOSINOPHILS ABSOLUTE AUTO 0.17 K/mm3 (0.00-0.68); EOSINOPHILS PERCENT AUTO 1 % (0-6); Hematocrit 24.6 % (37.0-53.0); Hemoglobin 8.4 g/dL (13.5-17.5); IMMATURE GRAN ABSOLUTE AUTO 0.16 K/mm3 (0.00-0.10); IMMATURE GRAN PERCENT AUTO 1 % (0-1); LYMPHOCYTES ABSOLUTE AUTO 1.89 K/mm3 (0.84-5.20); LYMPHOCYTES PERCENT AUTO 15 % (21-46); MONOCYTES PERCENT AUTO 7 % (4-13); Mean Corpuscular HGB 29.1 pg (26.0-34.0); Mean Corpuscular HGB Conc 34.1 g/dL (31.5-36.5); Mean Corpuscular Volume 85 fL (80-100); Mean Platelet Volume 8.1 fL (9.1-12.4); NEUTROPHILS ABSOLUTE AUTO 9.07 K/mm3 (1.96-9.15); NEUTROPHILS PERCENT AUTO 74 % (41-73); Platelet Count 557 K/mm3 (150-400); RDW Coefficient Variation 15.1 % (11.7-14.2); RDW Standard Deviation 46.1 fL (35.1-46.3); Red Blood Cell Count 2.89 M/mm3 (4.30-5.90); White Blood Cell Count 12.25 K/mm3 (4.00-11.30)
[2022-12-12 05:40] LABS: Bun/Creatinine Ratio 9.6 (12.0-20.0); Calcium, Blood 7.6 mg/dL (8.5-10.1); Creatinine, Blood 3.24 mg/dL (0.60-1.20); Potassium, Blood 3.8 mmol/L (3.5-5.5)
--- NOTE | 2022-12-12 18:15 | NUR ---
SHIFT SUMMARY PT A&OX4 AND IN PLEASENT MOOD. CAN BE SLOW TO RESPOND @ TIMES, FLAT AFFECT. DR. GOLDBERG IN TODAY TO ADMIN MEDICATION, KELLI DRAIN DRAINING AT THIS TIME. CALL LIGHT W/IN REACH. VSS. TOLERATING PO INTAKE WELL. PT NEEDS EXTENDED DWELL LINE PLACEMENT FOR OUT PT IV ABX BEFORE DC. CHARGE ROSHAN LOOKING INTO LINE PLACEMENT @ THIS TIME.
--- NOTE | 2022-12-13 05:05 | NUR ---
SHIFT SUMMARY 57 YR M ADMITTED ON 12/04/22. DNR. NO ACUTE CHANGES THIS SHIFT. POWERGLIDE WAS SUCESSFULLY PLACED AT BEGINNING OF SHIFT. PT HAS A FLAT AFFECT AND DID NOT SAY MUCH BUT HE WAS PLEASANT AND COOPERATIVE WITH CARE. KELLI DRAIN APPEARS TO BE DRAINING WELL. PT C/O PAIN IN THE RIGHT FLANK AND WAS GIVEN PAIN MED PER EMAR. NO OTHER C/O THIS SHIFT.
[2022-12-13 08:29] LABS: BASOPHILS ABSOLUTE AUTO 0.06 K/mm3 (0.00-0.23); BASOPHILS PERCENT AUTO 1 % (0-2); EOSINOPHILS ABSOLUTE AUTO 0.19 K/mm3 (0.00-0.68); EOSINOPHILS PERCENT AUTO 3 % (0-6); Hematocrit 24.1 % (37.0-53.0); IMMATURE GRAN PERCENT AUTO 2 % (0-1); LYMPHOCYTES ABSOLUTE AUTO 1.57 K/mm3 (0.84-5.20); LYMPHOCYTES PERCENT AUTO 27 % (21-46); MONOCYTES ABSOLUTE AUTO 0.41 K/mm3 (0.16-1.47); MONOCYTES PERCENT AUTO 7 % (4-13); Mean Corpuscular HGB 28.4 pg (26.0-34.0); Mean Corpuscular HGB Conc 33.2 g/dL (31.5-36.5); Mean Corpuscular Volume 86 fL (80-100); Mean Platelet Volume 8.1 fL (9.1-12.4); NEUTROPHILS ABSOLUTE AUTO 3.49 K/mm3 (1.96-9.15); NEUTROPHILS PERCENT AUTO 60 % (41-73); Platelet Count 532 K/mm3 (150-400); RDW Coefficient Variation 15.2 % (11.7-14.2); RDW Standard Deviation 47.3 fL (35.1-46.3); Red Blood Cell Count 2.82 M/mm3 (4.30-5.90); White Blood Cell Count 5.82 K/mm3 (4.00-11.30)
[2022-12-13 12:05] LABS: Vancomycin, Random 8.5 ug/mL
[2022-12-13 13:58] LABS: Albumin, Blood 1.3 g/dL (3.4-5.0); Anion Gap 5 mmol/L (6-16); Blood Urea Nitrogen 17 mg/dL (8-24); Bun/Creatinine Ratio 8.3 (12.0-20.0); CO2, Blood 32 mmol/L (21-32); Calcium, Blood 7.8 mg/dL (8.5-10.1); Chloride, Blood 92 mmol/L (98-108); Creatinine, Blood 2.05 mg/dL (0.60-1.20); Glomerular Filtration Rate 37 (60-); Glucose, Blood 137 mg/dL (70-99); Sodium, Blood 129 mmol/L (136-145)
[2022-12-13 13:59] LABS: Potassium, Blood 4.8 mmol/L (3.5-5.5)
--- NOTE | 2022-12-14 04:42 | NUR ---
SUMMARY: PATIENT AOX4. VSS. WEAKNESS TO THE LEFT SIDE. PATIENT REFUSED TO ALLOW STAFF TO TURN HIM IN BED EVERY 2 HOURS. COOPERATIVE WITH ALL OTHER CARE. PATIENT IS WITHDRAWN AND HAS A FLAT AFFECT. DRAIN TO R CHEST WITH MINIMAL OUTPUT OVERNIGHT. MEDICATED FOR PAIN PER EMAR. CALL LIGHT IN REACH. BED ALARM ON. POSSIBLE DRAIN REMOVAL TODAY AND RETURN TO [facility].
[2022-12-14 04:51] LABS: BASOPHILS ABSOLUTE AUTO 0.05 K/mm3 (0.00-0.23); BASOPHILS PERCENT AUTO 1 % (0-2); EOSINOPHILS ABSOLUTE AUTO 0.16 K/mm3 (0.00-0.68); EOSINOPHILS PERCENT AUTO 3 % (0-6); Hematocrit 23.1 % (37.0-53.0); Hemoglobin 7.5 g/dL (13.5-17.5); IMMATURE GRAN ABSOLUTE AUTO 0.08 K/mm3 (0.00-0.10); IMMATURE GRAN PERCENT AUTO 1 % (0-1); LYMPHOCYTES ABSOLUTE AUTO 2.05 K/mm3 (0.84-5.20); LYMPHOCYTES PERCENT AUTO 32 % (21-46); MONOCYTES ABSOLUTE AUTO 0.65 K/mm3 (0.16-1.47); MONOCYTES PERCENT AUTO 10 % (4-13); Mean Corpuscular HGB 28.3 pg (26.0-34.0); Mean Corpuscular HGB Conc 32.5 g/dL (31.5-36.5); Mean Corpuscular Volume 87 fL (80-100); Mean Platelet Volume 8.4 fL (9.1-12.4); NEUTROPHILS ABSOLUTE AUTO 3.51 K/mm3 (1.96-9.15); NEUTROPHILS PERCENT AUTO 54 % (41-73); Platelet Count 512 K/mm3 (150-400); RDW Coefficient Variation 15.5 % (11.7-14.2); RDW Standard Deviation 48.7 fL (35.1-46.3); Red Blood Cell Count 2.65 M/mm3 (4.30-5.90)
[2022-12-14] MEDS ORDERED: CEFAZOLIN2 GM/50 M3 IV ×2 (10:07)
[2022-12-14] MEDS ORDERED: B-1100 M1 PO (10:08)
[2022-12-14] MEDS ORDERED: VANCOMYCIN HCL1 G1 (10:09)
[2022-12-14 10:46] LABS: Vancomycin, Random 19.1 ug/mL
[2022-12-14 11:09] LABS: Influenza A, PCR NEGATIVE (NEGATIVE); Influenza B, PCR NEGATIVE (NEGATIVE); Resp Syncytial Virus, PCR NEGATIVE (NEGATIVE); SARS-Cov-2 (COVID-19) PCR, MMC NEGATIVE (NEGATIVE)
--- NOTE | 2022-12-14 13:17 | NUR ---
CHEST TUBE RIGHT CHEST TUBE PATENT. TO WALL SUCTION 20 MMHG, NO AIR LEAK. CHEST TUBE TAPED TO THE FLOOR. ALL JUCTIONS TAPED AFTER DR WARNER WAS DONE. PT TOLERATED WELL. CONTINUE POC.
--- NOTE | 2022-12-14 19:19 | NUR ---
EVENING NOTE PT CXHEST TUBE DRAINING SCANT FLUID. PLEURAL VAC ATTACHED TO WALL SUCTION WITH NO AIR LEAK NOTED. RIGHT CHEST DRESSING CD&I. CHEST TUBE CASSETT TAPED TO THE FLOOR TO PREVENT TIPPING OVER. NO URINE OUTPT. MEDCIATED WITH NORCO X2. PAIN WELL CONTROLLED. CONTINUE POC.
--- NOTE | 2022-12-15 05:19 | NUR ---
PT A&O4, BEDREST, CHEST TUBE TO CONTINUOS WALL SUCTION NO LEAKS WITH <10ML OUTPUT THIS SHIFT, PRN PAIN MEDICATION GIVEN PER MAR, VSS, NO ACUTE OVERNIGHT EVENTS, CONTINUE POC
[2022-12-15 14:30] LABS: Influenza A, PCR NEGATIVE (NEGATIVE); Influenza B, PCR NEGATIVE (NEGATIVE); Resp Syncytial Virus, PCR NEGATIVE (NEGATIVE); SARS-Cov-2 (COVID-19) PCR, MMC NEGATIVE (NEGATIVE)
[2022-12-15 14:49] LABS: Vancomycin, Random 10.1 ug/mL
--- NOTE | 2022-12-15 16:18 | NUR ---
DISCHARGE PATIENT TRANSPORTED VIA GURNEY TO [facility]. DISCHARGE INSTRUCTIONS SENT TO [facility]. MEDICATIONS SENT TO [facility]. FACILITY TO SCHEDULE FOLLOW UP APPOINTMENTS. PATIENT RECIEVED DIALYSIS TODAY AND RECIEVED ABX BEFORE DISCHARGE. POWERGLIDE TO CHRISTIE PATENT AND INTACT AT TIME OF DISCHARGE DUE TO IV ABX OUTPATIENT. PATIENT FAMILY AT BEDSIDE DURING DISCHARGE. REPORT GIVEN TO RECIEVING NURSE AT [facility].
== END 2022-12-15 16:01 | disposition hospice, inpatient (51) | DRG 177 ==
LOC: ER 07:49 → MEDS 13:37
PROVIDERS: Emergency Medicine; Internal Medicine; Internal Medicine Critical Care Medicine; Internal Medicine Nephrology; ADMIT Internal Medicine
PROC: 5A09357 Assistance with Respiratory Ventilation, Less than 24 Consecutive Hours, Continuous Positive Airway Pressure (ICD-10-PCS; 2022-12-04)
PROC: 0W9930Z Drainage of Right Pleural Cavity with Drainage Device, Percutaneous Approach (ICD-10-PCS; principal; 2022-12-05)
PROC: 5A1D70Z Performance of Urinary Filtration, Intermittent, Less than 6 Hours Per Day (ICD-10-PCS; 2022-12-05)
PROC: 30233N1 Transfusion of Nonautologous Red Blood Cells into Peripheral Vein, Percutaneous Approach (ICD-10-PCS; 2022-12-06)
PROC: 3E04317 Introduction of Other Thrombolytic into Central Vein, Percutaneous Approach (ICD-10-PCS; 2022-12-11)
DX: J85.1 Abscess of lung with pneumonia (principal); J96.01 Acute respiratory failure with hypoxia; N18.6 End stage renal disease; E87.1 Hypo-osmolality and hyponatremia; I69.354 Hemiplegia and hemiparesis following cerebral infarction affecting left non-dominant side; J90 Pleural effusion, not elsewhere classified; I50.42 Chronic combined systolic (congestive) and diastolic (congestive) heart failure; I13.2 Hypertensive heart and chronic kidney disease with heart failure and with stage 5 chronic kidney disease, or end stage renal disease; J98.11 Atelectasis; Z66 Do not resuscitate; G47.33 Obstructive sleep apnea (adult) (pediatric); E11.22 Type 2 diabetes mellitus with diabetic chronic kidney disease; E11.42 Type 2 diabetes mellitus with diabetic polyneuropathy; M25.552 Pain in left hip; E78.5 Hyperlipidemia, unspecified; F32.A Depression, unspecified; G89.29 Other chronic pain; M79.605 Pain in left leg; D63.1 Anemia in chronic kidney disease; R26.9 Unspecified abnormalities of gait and mobility; B95.4 Other streptococcus as the cause of diseases classified elsewhere; B95.61 Methicillin susceptible Staphylococcus aureus infection as the cause of diseases classified elsewhere; Z20.822 Contact with and (suspected) exposure to COVID-19; Z74.09 Other reduced mobility; Z79.2 Long term (current) use of antibiotics; Z79.82 Long term (current) use of aspirin; Z79.02 Long term (current) use of antithrombotics/antiplatelets; Z98.890 Other specified postprocedural states; Z79.01 Long term (current) use of anticoagulants; Z79.891 Long term (current) use of opiate analgesic; Z99.2 Dependence on renal dialysis; Z99.81 Dependence on supplemental oxygen; Z79.4 Long term (current) use of insulin; Z87.81 Personal history of (healed) traumatic fracture; Z88.8 Allergy status to other drugs, medicaments and biological substances; Z91.15 Patient's noncompliance with renal dialysis; Z79.899 Other long term (current) drug therapy
CPT/HCPCS: 0241U; 36415; 36430; 71045; 71046; 71250; 75989; 80048; 80053; 80069; 80202; 82945; 82947; 83605; 83615; 83735; 83986; 84145; 84155; 84157; 85014; 85018; 85025; 85027; 85610; 85730; 86850; 86900; 86901; 86923; 87040; 87070; 87075; 87077; 87147; 87186; 87205; 88108; 88305; 89051; 94660; 94762; 96365; 96375; 97110; 97162; 97166; 97530; 97535; 99285-25; A9270; C1751; J0295; J0690; J0692; J1644; J1815; J2405; J2543; J2997; J3370; J7050; P9016

== ENCOUNTER 2022-12-26 18:50 | Emergency (ER) | payer OTHER ==
[~2022-12-26] VITALS: Ht 193 cm; Wt 116.1 kg
[~2022-12-26 18:50] MED LIST changes: +B-1100 M1 PO; +CEFAZOLIN2 GM/50 M3 IV; +HUMALOG100 UNIT/1 SC; +INSULANI SC; +Prozac20 MG PO; +SEVE800 PO; +VANCOMYCIN HCL1 G1
[2022-12-26 20:05] LABS: Albumin, Blood 1.8 g/dL (3.4-5.0); Albumin/Globulin Ratio 0.4 (0.8-1.8); Bilirubin, Total 0.3 mg/dL (0.1-1.0); Bun/Creatinine Ratio 8.7 (12.0-20.0); Calcium, Blood 8.3 mg/dL (8.5-10.1); Creatinine, Blood 2.86 mg/dL (0.60-1.20); Globulin, Blood 4.6 g/dL (2.2-4.0); Potassium, Blood 5.1 mmol/L (3.5-5.5); Total Protein, Blood 6.4 g/dL (6.4-8.2)
[2022-12-26 20:09] LABS: BASOPHILS ABSOLUTE AUTO 0.05 K/mm3 (0.00-0.23); BASOPHILS PERCENT AUTO 1 % (0-2); EOSINOPHILS ABSOLUTE AUTO 0.34 K/mm3 (0.00-0.68); EOSINOPHILS PERCENT AUTO 7 % (0-6); Hematocrit 21.9 % (37.0-53.0); Hemoglobin 7.1 g/dL (13.5-17.5); IMMATURE GRAN ABSOLUTE AUTO 0.08 K/mm3 (0.00-0.10); IMMATURE GRAN PERCENT AUTO 2 % (0-1); LYMPHOCYTES ABSOLUTE AUTO 1.19 K/mm3 (0.84-5.20); LYMPHOCYTES PERCENT AUTO 23 % (21-46); MONOCYTES ABSOLUTE AUTO 0.74 K/mm3 (0.16-1.47); MONOCYTES PERCENT AUTO 15 % (4-13); Mean Corpuscular HGB 29.8 pg (26.0-34.0); Mean Corpuscular HGB Conc 32.4 g/dL (31.5-36.5); Mean Corpuscular Volume 92 fL (80-100); NEUTROPHILS ABSOLUTE AUTO 2.68 K/mm3 (1.96-9.15); NEUTROPHILS PERCENT AUTO 53 % (41-73); RDW Coefficient Variation 18.5 % (11.7-14.2); RDW Standard Deviation 61.9 fL (35.1-46.3); Red Blood Cell Count 2.38 M/mm3 (4.30-5.90); White Blood Cell Count 5.08 K/mm3 (4.00-11.30)
[2022-12-26 21:38] LABS: Mean Platelet Volume 8.8 fL (9.1-12.4); Platelet Count 332 K/mm3 (150-400)
== END 2022-12-27 01:23 | disposition home or self-care (01) ==
LOC: ER 18:50
PROVIDERS: Emergency Medicine
DX: J98.11 Atelectasis (principal); I13.2 Hypertensive heart and chronic kidney disease with heart failure and with stage 5 chronic kidney disease, or end stage renal disease; N18.6 End stage renal disease; E11.22 Type 2 diabetes mellitus with diabetic chronic kidney disease; I50.20 Unspecified systolic (congestive) heart failure; G47.33 Obstructive sleep apnea (adult) (pediatric); Z99.2 Dependence on renal dialysis; Z88.8 Allergy status to other drugs, medicaments and biological substances; Z79.899 Other long term (current) drug therapy; Z79.4 Long term (current) use of insulin; Z79.82 Long term (current) use of aspirin
CPT/HCPCS: 71046; 71260; 80053; 84484; 85025; 93005; 93010; 99284-25; Q9967

== ENCOUNTER → 2023-01-22 | Outpatient (CLI) | payer OTHER ==
[2023-01-22 20:38] LABS: Bilirubin, Urine Neg (Neg); Blood, Urine 2+ (Neg); Glucose Qualitative, Urine Neg (Neg); Ketones, Urine Neg (Neg); Leukocyte Esterase, Urine Neg (Neg); Nitrite, Urine Neg (Neg); Protein, Urine 3+ (Neg); Specific Gravity, Urine 1.005 (1.003-1.022); Urobilinogen, Urine NORM (Normal)
[2023-01-22 20:55] LABS: Appearance, Urine Clear (Clear); Color, Urine Yellow (P-Yellow)
[2023-01-22 20:57] LABS: Bacteria Not Seen /hpf; Red Blood Cells, Urine 0-2 /hpf (0-2); Squamous Epithelial Cells Not Seen /hpf (Few); White Blood Cells, Urine Not Seen /hpf (0-5)
== END | disposition home or self-care (01) ==
LOC: EDSTATUS 15:52 → LAB UVN 18:30
PROVIDERS: Family Medicine
DX: N39.0 Urinary tract infection, site not specified (principal)
CPT/HCPCS: 81001

== ENCOUNTER 2023-02-16 16:17 | Emergency (ER) | payer OTHER ==
[~2023-02-16] VITALS: Ht 190.5 cm; Wt 117.5 kg
[2023-02-16 16:44] LABS: BASOPHILS ABSOLUTE AUTO 0.04 K/mm3 (0.00-0.23); BASOPHILS PERCENT AUTO 1 % (0-2); EOSINOPHILS ABSOLUTE AUTO 0.18 K/mm3 (0.00-0.68); EOSINOPHILS PERCENT AUTO 3 % (0-6); IMMATURE GRAN ABSOLUTE AUTO 0.01 K/mm3 (0.00-0.10); IMMATURE GRAN PERCENT AUTO 0 % (0-1); LYMPHOCYTES ABSOLUTE AUTO 1.24 K/mm3 (0.84-5.20); LYMPHOCYTES PERCENT AUTO 21 % (21-46); MONOCYTES ABSOLUTE AUTO 0.71 K/mm3 (0.16-1.47); MONOCYTES PERCENT AUTO 12 % (4-13); Mean Corpuscular HGB 31.2 pg (26.0-34.0); Mean Corpuscular HGB Conc 31.4 g/dL (31.5-36.5); Mean Corpuscular Volume 99 fL (80-100); Mean Platelet Volume 8.7 fL (9.1-12.4); NEUTROPHILS ABSOLUTE AUTO 3.78 K/mm3 (1.96-9.15); NEUTROPHILS PERCENT AUTO 63 % (41-73); Platelet Count 375 K/mm3 (150-400); RDW Coefficient Variation 16.8 % (11.7-14.2); RDW Standard Deviation 60.4 fL (35.1-46.3); White Blood Cell Count 5.96 K/mm3 (4.00-11.30)
[2023-02-16 16:47] LABS: Hematocrit 16.9 % (37.0-53.0); Hemoglobin 5.3 g/dL (13.5-17.5)
[2023-02-16 17:00] LABS: Albumin, Blood 2.9 g/dL (3.4-5.0); Albumin/Globulin Ratio 0.7 (0.8-1.8); Bilirubin, Total 0.3 mg/dL (0.1-1.0); Bun/Creatinine Ratio 13.7 (12.0-20.0); Calcium, Blood 8.7 mg/dL (8.5-10.1); Creatinine, Blood 2.33 mg/dL (0.60-1.20); Globulin, Blood 4.1 g/dL (2.2-4.0); Potassium, Blood 3.8 mmol/L (3.5-5.5)
[2023-02-16 19:14] LABS: Influenza A, PCR NEGATIVE (NEGATIVE); Influenza B, PCR NEGATIVE (NEGATIVE); Resp Syncytial Virus, PCR NEGATIVE (NEGATIVE); SARS-Cov-2 (COVID-19) PCR, MMC NEGATIVE (NEGATIVE)
== END 2023-02-16 21:44 | disposition short-term general hospital (02) ==
LOC: ER 16:17
PROVIDERS: Emergency Medicine
DX: D62 Acute posthemorrhagic anemia (principal); D63.1 Anemia in chronic kidney disease; I12.0 Hypertensive chronic kidney disease with stage 5 chronic kidney disease or end stage renal disease; I50.20 Unspecified systolic (congestive) heart failure; E11.22 Type 2 diabetes mellitus with diabetic chronic kidney disease; N18.6 End stage renal disease; E78.5 Hyperlipidemia, unspecified; G47.33 Obstructive sleep apnea (adult) (pediatric); I69.354 Hemiplegia and hemiparesis following cerebral infarction affecting left non-dominant side; Z86.010 Personal history of colon polyps; Z88.8 Allergy status to other drugs, medicaments and biological substances; Z79.899 Other long term (current) drug therapy; Z79.4 Long term (current) use of insulin; Z79.82 Long term (current) use of aspirin; Z99.2 Dependence on renal dialysis
CPT/HCPCS: 0241U; 36415; 36430; 80053; 85025; 86850; 86900; 86901; 86923; 93005; 93010; 96374; 99285-25; C9113; J7030; P9016

== ENCOUNTER 2023-11-18 21:22 | Inpatient (IN) | payer OTHER ==
[~2023-11-18] VITALS: Ht 193 cm; Wt 108.9 kg
[2023-11-18 21:51] LABS: BASOPHILS ABSOLUTE AUTO 0.03 K/mm3 (0.00-0.23); BASOPHILS PERCENT AUTO 0 % (0-2); EOSINOPHILS ABSOLUTE AUTO 0.23 K/mm3 (0.00-0.68); EOSINOPHILS PERCENT AUTO 3 % (0-6); Hematocrit 29.6 % (37.0-53.0); Hemoglobin 10.3 g/dL (13.5-17.5); IMMATURE GRAN ABSOLUTE AUTO 0.04 K/mm3 (0.00-0.10); IMMATURE GRAN PERCENT AUTO 1 % (0-1); LYMPHOCYTES ABSOLUTE AUTO 1.23 K/mm3 (0.84-5.20); LYMPHOCYTES PERCENT AUTO 17 % (21-46); MONOCYTES ABSOLUTE AUTO 1.07 K/mm3 (0.16-1.47); MONOCYTES PERCENT AUTO 15 % (4-13); Mean Corpuscular HGB 31.3 pg (26.0-34.0); Mean Corpuscular HGB Conc 34.8 g/dL (31.5-36.5); Mean Corpuscular Volume 90 fL (80-100); Mean Platelet Volume 9.2 fL (9.1-12.4); NEUTROPHILS ABSOLUTE AUTO 4.65 K/mm3 (1.96-9.15); NEUTROPHILS PERCENT AUTO 64 % (41-73); Platelet Count 236 K/mm3 (150-400); RDW Coefficient Variation 13.9 % (11.7-14.2); RDW Standard Deviation 43.6 fL (35.1-46.3); Red Blood Cell Count 3.29 M/mm3 (4.30-5.90); White Blood Cell Count 7.25 K/mm3 (4.00-11.30)
[2023-11-18 21:55] LABS: Chloride (POC) 87 mmol/L (98-108); Creatinine (POC) 7.5 mg/dL (0.8-1.3); Glucose (ISTAT POC) 153 mg/dL (70-99); Hemoglobin (POC) 10.5 g/dL (13.5-17.5); Potassium (POC) 6.5 mmol/L (3.5-5.5); Sodium (POC) 123 mmol/L (135-148); Total CO2 (POC) 29 mmol/L (21-32)
[2023-11-18 22:09] LABS: Magnesium, Blood 2.2 mg/dL (1.6-2.4)
[2023-11-18 22:19] LABS: Albumin, Blood 3.7 g/dL (3.4-5.0); Albumin/Globulin Ratio 0.9 (0.8-1.8); Bilirubin, Total 0.5 mg/dL (0.1-1.0); Bun/Creatinine Ratio 11.9 (12.0-20.0); Calcium, Blood 8.9 mg/dL (8.5-10.1); Creatinine, Blood 6.81 mg/dL (0.60-1.20); Globulin, Blood 4.3 g/dL (2.2-4.0); Phosphorus, Blood 5.2 mg/dL (2.5-4.9); Potassium, Blood 6.5 mmol/L (3.5-5.5)
[2023-11-19] VITALS (20 sets, daily range): BP systolic 134–177; BP diastolic 49–109
[2023-11-19] MEDS ORDERED: FERSU300 PO (00:41)
[2023-11-19] MEDS ORDERED: CARV6.25 PO (00:43)
[2023-11-19 04:20] LABS: BASOPHILS ABSOLUTE AUTO 0.03 K/mm3 (0.00-0.23); BASOPHILS PERCENT AUTO 0 % (0-2); EOSINOPHILS ABSOLUTE AUTO 0.24 K/mm3 (0.00-0.68); EOSINOPHILS PERCENT AUTO 4 % (0-6); Hemoglobin 9.5 g/dL (13.5-17.5); IMMATURE GRAN ABSOLUTE AUTO 0.03 K/mm3 (0.00-0.10); IMMATURE GRAN PERCENT AUTO 0 % (0-1); LYMPHOCYTES ABSOLUTE AUTO 1.11 K/mm3 (0.84-5.20); LYMPHOCYTES PERCENT AUTO 16 % (21-46); MONOCYTES ABSOLUTE AUTO 0.98 K/mm3 (0.16-1.47); MONOCYTES PERCENT AUTO 14 % (4-13); Mean Corpuscular HGB Conc 35.2 g/dL (31.5-36.5); Mean Corpuscular Volume 88 fL (80-100); Mean Platelet Volume 9.5 fL (9.1-12.4); NEUTROPHILS ABSOLUTE AUTO 4.44 K/mm3 (1.96-9.15); NEUTROPHILS PERCENT AUTO 65 % (41-73); Platelet Count 226 K/mm3 (150-400); RDW Coefficient Variation 13.8 % (11.7-14.2); RDW Standard Deviation 42.7 fL (35.1-46.3); Red Blood Cell Count 3.06 M/mm3 (4.30-5.90); White Blood Cell Count 6.83 K/mm3 (4.00-11.30)
[2023-11-19 04:43] LABS: Albumin, Blood 3.2 g/dL (3.4-5.0); Albumin/Globulin Ratio 0.8 (0.8-1.8); Bilirubin, Total 0.6 mg/dL (0.1-1.0); Bun/Creatinine Ratio 12.1 (12.0-20.0); Calcium, Blood 8.8 mg/dL (8.5-10.1); Creatinine, Blood 7.02 mg/dL (0.60-1.20); Globulin, Blood 3.8 g/dL (2.2-4.0); Magnesium, Blood 2.5 mg/dL (1.6-2.4); Phosphorus, Blood 5.1 mg/dL (2.5-4.9); Potassium, Blood 4.8 mmol/L (3.5-5.5)
--- NOTE | 2023-11-19 08:46 | NUR ---
REPORT CALLED TO ICU PT TO GO TO ICU 13 AFTER DIALYSIS. REPORT GIVEN TO DAVID OPERATIONS AND MAINTENANCE SUPERVISOR. TRANSPORTED TO DIALYSIS VIA W/C BY RN. A/O, FOLLOWS COMMANDS, ABLE TO MAKE ALL NEEDS KNOWN. HR 60'S, SBP ELEVATED 160'S-170'S, PT HAS NOT HAD ANTIHYPERTENSIVE MEDICATION DUE TO LOW BP AT FACILITY YESTERDAY. ON ROOM AIR, LUNGS CTA. DENIES ANY NAUSEA, BS NORMOACTIVE. VOIDS USING THE URINAL WITH ASSISTANCE. PT DENIES ANY AREAS OF SKIN BREAKDOWN. PIV X2, SL. DIALYSIS NURSE NOTIFIED PT EN ROUTE. POC ONGOING.
--- NOTE | 2023-11-19 12:00 | NUR ---
assumed care: PT TRANSFERRED TO ROOM IN WHEELCHAIR FROM DIALYSIS. REPORT RECIEVED FROM ED NURSE, MARTHA. PT IS NSR WITH BBB ON TELE. NEEDED ASSISTANCE TO BSC. DENIED NEEDS OR CONCERNS AT THIS TIME.
--- NOTE | 2023-11-19 14:47 | NUR ---
CALL TO DR PATINO TO RELAY THAT PT ONLY GOT TWO DOSES OF LOKELMA AND ASKED IF HE WANTED PT TO RECIEVE A THIRD. DECLINED AND STATED PT COULD BE MED/TELE STATUS. INSPECTOR HANDBAG FRAMES AWARE. ALSO RELAYED TO THAT PT REFUSED HEPARIN BECAUSE HE STATES HE HAS RETINOPATHY AND HAD AN EYE INJECTION ON SUNDAY AND WAS TOLD THERE IS A RISK FOR BLEEDING WITH IT. STATES HE WILL REVIEW.
--- NOTE | 2023-11-19 16:02 | NUR ---
PT'S TELE WAS ALARMING FOR ST ELEVATION. EKG PERFORMED AND RELAYED TO DR PATINO. TO REVIEW. NO NEW ORDERS
--- NOTE | 2023-11-19 16:45 | NUR ---
REPORT CALLED TO SURGICAL FLOOR NURSECHERI. NURSING AWARE OF PT'S TELE STATUS AND TELE HAS ALSO BEEN NOTIFIED OF WHAT RHYTHM IS DOING. PT TRANSFERRED VIA WHEEL CHAIR, NO ACUTE NEEDS OR CONCERNS AT THIS TIME.
--- NOTE | 2023-11-19 17:14 | NUR ---
SHIFT SUMMARY PT TRANSFERRED FROM ICU. PT VOCALIZED HAVING HIS INSULIN ORDERED AND THAT HE WOULD LIKE TO HAVE HIS BLOOD GLUCOSE TESTED 4 TIMES A DAY. INFORMED PATIENT THAT HE IS HAVING HIS GLUCOSE TESTED ACHS WHICH ROUGHLY IS 4 TIMES A DAY. OBTAINED INSULIN ORDER FROM DOCTOR. PT RESTING PEACEFULLY IN BED WITH HIS CALL LIGHT IN REACH. PT HAD DIALYSIS TODAY.
[2023-11-20] VITALS (14 sets, daily range): BP systolic 110–170; BP diastolic 56–91
--- NOTE | 2023-11-20 04:04 | NUR ---
SHIFT SUMMARY NO ACUTE CHANGES. PT RESTED WELL T/O SHIFT. TELE REMAINS IN A JUNCTIONAL RHYTHM IN THE 60S. 1 SBA USING FWW TO THE BATHROOM. IV SL. PT DENIES ANY COMPLAINTS. USES CALL LIGHT APPROPRIATELY.
[2023-11-20 04:34] LABS: BASOPHILS ABSOLUTE AUTO 0.02 K/mm3 (0.00-0.23); BASOPHILS PERCENT AUTO 0 % (0-2); EOSINOPHILS ABSOLUTE AUTO 0.18 K/mm3 (0.00-0.68); EOSINOPHILS PERCENT AUTO 4 % (0-6); Hematocrit 28.4 % (37.0-53.0); Hemoglobin 9.9 g/dL (13.5-17.5); IMMATURE GRAN ABSOLUTE AUTO 0.02 K/mm3 (0.00-0.10); IMMATURE GRAN PERCENT AUTO 0 % (0-1); LYMPHOCYTES ABSOLUTE AUTO 0.83 K/mm3 (0.84-5.20); LYMPHOCYTES PERCENT AUTO 17 % (21-46); MONOCYTES ABSOLUTE AUTO 0.66 K/mm3 (0.16-1.47); MONOCYTES PERCENT AUTO 14 % (4-13); Mean Corpuscular HGB 31.2 pg (26.0-34.0); Mean Corpuscular HGB Conc 34.9 g/dL (31.5-36.5); Mean Corpuscular Volume 90 fL (80-100); NEUTROPHILS ABSOLUTE AUTO 3.07 K/mm3 (1.96-9.15); NEUTROPHILS PERCENT AUTO 64 % (41-73); Platelet Count 213 K/mm3 (150-400); RDW Coefficient Variation 13.8 % (11.7-14.2); RDW Standard Deviation 43.8 fL (35.1-46.3); Red Blood Cell Count 3.17 M/mm3 (4.30-5.90); White Blood Cell Count 4.78 K/mm3 (4.00-11.30)
[2023-11-20 04:58] LABS: Bun/Creatinine Ratio 11.5 (12.0-20.0); Calcium, Blood 8.5 mg/dL (8.5-10.1); Creatinine, Blood 5.91 mg/dL (0.60-1.20); Potassium, Blood 4.5 mmol/L (3.5-5.5)
--- NOTE | 2023-11-20 07:28 | NUR ---
PT TO DIALYSIS AT APPROX 0720.
--- NOTE | 2023-11-20 10:38 | NUR ---
DR PATINO AWARE OF HEART CHANGES THAT HAVE OCCURRED THIS MORNING.
--- NOTE | 2023-11-20 16:27 | NUR ---
DISCHARGE PT A&OX4, VSS/RA/TELE JUNC 60s, BOB PO, VOIDING/BMs, AMB FWW SBA, DENIES PAIN/REPORTS FEELING BETTER AND MORE AWAKE SINCE BEING SLEEPY POST-DIALYSIS, IVs DC'D. REPORT TO [facility]. LEFT WITH TRANSPORT 1620, WITH ALL PERSONAL ITEMS.
== END 2023-11-20 17:30 | DRG 640 ==
LOC: ER 21:22 → ERHOLD 23:35 → ICUE 11-19 08:59 → SURS 11-19 16:12 → ICUE 11-19 16:12 → SURS 11-19 16:48
PROVIDERS: Emergency Medicine; Family Medicine; Internal Medicine; ADMIT Internal Medicine
PROC: 5A1D70Z Performance of Urinary Filtration, Intermittent, Less than 6 Hours Per Day (ICD-10-PCS; principal; 2023-11-19)
DX: E87.5 Hyperkalemia (principal); N18.6 End stage renal disease; I13.2 Hypertensive heart and chronic kidney disease with heart failure and with stage 5 chronic kidney disease, or end stage renal disease; I50.22 Chronic systolic (congestive) heart failure; I69.354 Hemiplegia and hemiparesis following cerebral infarction affecting left non-dominant side; N25.81 Secondary hyperparathyroidism of renal origin; R00.1 Bradycardia, unspecified; E87.1 Hypo-osmolality and hyponatremia; E11.22 Type 2 diabetes mellitus with diabetic chronic kidney disease; F32.A Depression, unspecified; E78.5 Hyperlipidemia, unspecified; G47.33 Obstructive sleep apnea (adult) (pediatric); E87.8 Other disorders of electrolyte and fluid balance, not elsewhere classified; D63.1 Anemia in chronic kidney disease; Z99.2 Dependence on renal dialysis; Z53.29 Procedure and treatment not carried out because of patient's decision for other reasons; Z86.69 Personal history of other diseases of the nervous system and sense organs; Z79.82 Long term (current) use of aspirin; Z79.01 Long term (current) use of anticoagulants; Z79.4 Long term (current) use of insulin
CPT/HCPCS: 36415; 71045; 80047; 80048; 80053; 82947; 83735; 84100; 84484; 85014; 85025; 93005; 93010; 94660; 94762; 96365; 99285-25; A9270; G0378; J0612; J1200; J1815; J2405; J3475; P9047

== ENCOUNTER → 2024-07-15 | Outpatient (CLI) | payer OTHER ==
[~2024-07-15] MED LIST changes: +CARV6.25 PO; +HUMULIN R100 UNIT/2; +MIDO5 PO; +NOVOLOG100 UNIT/3 SC
== END | disposition home or self-care (01) ==
LOC: LAB 13:02 → LAB SHORT 13:02
DX: L03.90 Cellulitis, unspecified (principal)
CPT/HCPCS: 87070; 87077; 87147; 87186; 87205

== ENCOUNTER 2024-07-24 12:20 | Day surgery (SDC) | payer OTHER ==
[~2024-07-24] VITALS: Ht 193 cm; Wt 118.1 kg
[~2024-07-24 12:20] MED LIST changes: +Balanced Salt Epinephrine Irrigation Solution 500 mL IR SCH; +Lidocaine HCl/Pf 1% 5 ML VIAL XX SCH; +Moxifloxacin HCL 0.5 MG/0.1 ML 0.4MLSYR LEFTEYE SCH; +NS 500 ML IV ONE; +PHENYLEPHRINE\\TROPICAMIDE\\TETRACAINE OPHTHALMIC DILATING SOLN LEFTEYE PRN; +Povidone-Iodine 450 DROP/30 ML Solution LEFTEYE SCH; +Triamcinolone Inj Susp 40 MG / ML 1ML Vial INJ SCH; +Triamcinolone Inj Susp 40 MG / ML 1ML Vial ONE
[2024-07-24] MEDS ORDERED: NS 500 ML IV ONE (13:40)
[2024-07-24] MEDS ORDERED: FAMO10 PO (14:01)
[2024-07-24] MEDS ORDERED: VELPHORO (14:07)
[2024-07-24] MEDS ORDERED: SUCROFERRIC OXYHYDROXIDE 500 MG (14:07)
[2024-07-24] MEDS ORDERED: BENADRYL25 MG (14:08)
[2024-07-24] MEDS ORDERED: ONDANSETRON ODT16 MG (14:09)
[2024-07-24] MEDS ORDERED: SULFAMETHOXAZO1 EACH (14:09)
[2024-07-24] MEDS ORDERED: CEPHALEXIN 500 MG (14:10)
[2024-07-24] MEDS ORDERED: MULTIVITAMIN (14:10)
[2024-07-24] MEDS ORDERED: Midazolam HCl 1MG / ML 2ML Vial ONE (14:19)
--- NOTE | 2024-07-24 14:21 | NUR ---
07/24/24 [facility]1 Nadira Cowan 1320: PER PATIENT, WORKING ON RIGHT EYE TODAY, PER CONSENT AND SCHEDULE WE ARE WORKING ON THE LEFT EYE TODAY. CONSULTED DR ARELLANO, PER DR ARELLANO OVER VOCERA, VERBAL ORDER TO PUT TETRACAINE IN RIGHT EYE BECAUSE THAT IS THE EYE THE PATIENT WOULD LIKE TO DO TODAY. 1322: TETRACAINE DROP PLACED IN RIGHT EYE. 1323: DR ARELLANO IN TO DISCUSS WITH PATIENT. AFTER DISCUSSION, PATIENT AND DR ARELLANO DECIDE TO DO CATARACT OF THE LEFT EYE. DR ARELLANO NOTIFIED THAT A TETRACAINE DROP WAS PLACED IN THE RIGHT EYE PRIOR TO HIM COMING INTO THE ROOM. PER DR ARELLANO OK TO PROCEED WITH CATARACT OF THE LEFT EYE AND TO PREP LEFT EYE WITH TETRACINE AND PLEDGETT PER ORDERS.
[2024-07-24] MEDS ORDERED: FentaNYL Citrate 50 MCG/ML 2 ML Injection ONE (14:42)
[2024-07-24] MEDS ORDERED: AcetaZOLAMIDE Sodium 500 MG Vial ONE (14:50)
[2024-07-24] MEDS ORDERED: PredniSONE 20 MG Tab PO ONE (15:00)
--- NOTE | 2024-07-24 15:08 | NUR ---
07/24/24 1508 Jose Wynn UNABLE TO IMPLANT LENS DUE TO NEED FOR HIGHER LEVEL OF CARE.
[2024-07-24 15:09] VITALS: BP 139/65
--- NOTE | 2024-07-24 15:46 | NUR ---
07/24/[address] IN TO DISCUSS COMPLICATION DURING SURGERY. PT SCHEDULED TO SEE DR CHOWDHURY TODAY IN OFFICE FOR SURGERY TO CORRECT AND FINISH CATARACT PROCEEDURE. PT GIVEN PREDNISONE 40MG PER ORDER. RIDE CONTACTED TO TAKE PT TO DR. CHOWDHURY'S OFFICE. PT GIVEN WRITTEN AND VERBAL INSTRUCTIONS ON WHAT TO EXPECT NEXT. ALL QUESTIONS PT HAD WERE ANSWERED BY DR. ARELLANO AND THIS NURSE.
== END 2024-07-24 15:41 | disposition home or self-care (01) ==
LOC: ORSCSDS 12:20
PROVIDERS: Ophthalmology
PROC: 08DK3ZZ Extraction of Left Lens, Percutaneous Approach (ICD-10-PCS; principal; 2024-07-24 14:00)
DX: E11.36 Type 2 diabetes mellitus with diabetic cataract (principal); H25.813 Combined forms of age-related cataract, bilateral; I10 Essential (primary) hypertension; G47.33 Obstructive sleep apnea (adult) (pediatric); I25.10 Atherosclerotic heart disease of native coronary artery without angina pectoris; I50.9 Heart failure, unspecified; Z86.73 Personal history of transient ischemic attack (TIA), and cerebral infarction without residual deficits; Z79.84 Long term (current) use of oral hypoglycemic drugs; Z79.899 Other long term (current) drug therapy; Z79.4 Long term (current) use of insulin
CPT/HCPCS: 82947; J1120; J2250; J3010; J3301; J7040; J7512

== ENCOUNTER 2024-07-27 09:29 | Emergency (ER) | payer OTHER ==
[~2024-07-27] VITALS: Ht 193 cm; Wt 116.1 kg
[~2024-07-27 09:29] MED LIST changes: +BENADRYL25 MG; -Balanced Salt Epinephrine Irrigation Solution 500 mL IR SCH; +CEPHALEXIN 500 MG; +FAMO10 PO; -Lidocaine HCl/Pf 1% 5 ML VIAL XX SCH; +MULTIVITAMIN; -Moxifloxacin HCL 0.5 MG/0.1 ML 0.4MLSYR LEFTEYE SCH; -NS 500 ML IV ONE; +ONDANSETRON ODT16 MG; -PHENYLEPHRINE\\TROPICAMIDE\\TETRACAINE OPHTHALMIC DILATING SOLN LEFTEYE PRN; -Povidone-Iodine 450 DROP/30 ML Solution LEFTEYE SCH; +SUCROFERRIC OXYHYDROXIDE 500 MG; +SULFAMETHOXAZO1 EACH; -Triamcinolone Inj Susp 40 MG / ML 1ML Vial INJ SCH; -Triamcinolone Inj Susp 40 MG / ML 1ML Vial ONE; +VELPHORO
[2024-07-27 10:21] LABS: BASOPHILS ABSOLUTE AUTO 0.02 K/mm3 (0.00-0.23); BASOPHILS PERCENT AUTO 0 % (0-2); EOSINOPHILS ABSOLUTE AUTO 0.23 K/mm3 (0.00-0.68); EOSINOPHILS PERCENT AUTO 2 % (0-6); Hematocrit 30.2 % (37.0-53.0); Hemoglobin 10.4 g/dL (13.5-17.5); IMMATURE GRAN ABSOLUTE AUTO 0.03 K/mm3 (0.00-0.10); IMMATURE GRAN PERCENT AUTO 0 % (0-1); LYMPHOCYTES ABSOLUTE AUTO 0.51 K/mm3 (0.84-5.20); LYMPHOCYTES PERCENT AUTO 5 % (21-46); MONOCYTES ABSOLUTE AUTO 0.82 K/mm3 (0.16-1.47); MONOCYTES PERCENT AUTO 8 % (4-13); Mean Corpuscular HGB 32.3 pg (26.0-34.0); Mean Corpuscular HGB Conc 34.4 g/dL (31.5-36.5); Mean Corpuscular Volume 94 fL (80-100); Mean Platelet Volume 9.1 fL (9.1-12.4); NEUTROPHILS PERCENT AUTO 84 % (41-73); Platelet Count 225 K/mm3 (150-400); RDW Coefficient Variation 13.8 % (11.7-14.2); RDW Standard Deviation 46.9 fL (35.1-46.3); Red Blood Cell Count 3.22 M/mm3 (4.30-5.90); White Blood Cell Count 9.81 K/mm3 (4.00-11.30)
[2024-07-27 10:53] LABS: Albumin, Blood 3.2 g/dL (3.4-5.0); Albumin/Globulin Ratio 0.8 (0.8-1.8); Bilirubin, Total 0.9 mg/dL (0.1-1.0); Bun/Creatinine Ratio 9.4 (12.0-20.0); Calcium, Blood 9.3 mg/dL (8.5-10.1); Creatinine, Blood 7.59 mg/dL (0.60-1.20); Potassium, Blood 4.2 mmol/L (3.5-5.5); Total Protein, Blood 7.2 g/dL (6.4-8.2)
[2024-07-27 13:11] LABS: Influenza A, PCR NEGATIVE (NEGATIVE); Influenza B, PCR NEGATIVE (NEGATIVE); Resp Syncytial Virus, PCR NEGATIVE (NEGATIVE); SARS-Cov-2 (COVID-19) PCR, MMC NEGATIVE (NEGATIVE)
[2024-07-27] MEDS ORDERED: Acetaminophen 500 MG Tab PO ONE (14:30)
[2024-07-27 15:15] VITALS: BP 180/61
== END 2024-07-27 15:38 | disposition home or self-care (01) ==
LOC: ER 09:29
PROVIDERS: Emergency Medicine; Student in an Organized Health Care Education/Training Program
DX: T82.9XXA Unspecified complication of cardiac and vascular prosthetic device, implant and graft, initial encounter (principal); E11.22 Type 2 diabetes mellitus with diabetic chronic kidney disease; E78.5 Hyperlipidemia, unspecified; I13.2 Hypertensive heart and chronic kidney disease with heart failure and with stage 5 chronic kidney disease, or end stage renal disease; I50.20 Unspecified systolic (congestive) heart failure; N18.6 End stage renal disease; Z79.02 Long term (current) use of antithrombotics/antiplatelets; Z79.899 Other long term (current) drug therapy; Z79.82 Long term (current) use of aspirin; Z79.4 Long term (current) use of insulin; Z88.8 Allergy status to other drugs, medicaments and biological substances
CPT/HCPCS: 0241U; 71046; 80053; 84484; 85025; A9270

== ENCOUNTER 2024-08-19 11:35 | Emergency (ER) | payer OTHER ==
[~2024-08-19] VITALS: Ht 193 cm; Wt 117.9 kg
[2024-08-19] MEDS ORDERED: DOXY100 PO (13:38)
[2024-08-19 14:06] VITALS: BP 153/68
== END 2024-08-19 15:06 | disposition home or self-care (01) ==
LOC: ER 11:35
DX: L03.313 Cellulitis of chest wall (principal); L98.499 Non-pressure chronic ulcer of skin of other sites with unspecified severity; E11.9 Type 2 diabetes mellitus without complications; I11.0 Hypertensive heart disease with heart failure; I50.20 Unspecified systolic (congestive) heart failure; G47.33 Obstructive sleep apnea (adult) (pediatric); Z86.73 Personal history of transient ischemic attack (TIA), and cerebral infarction without residual deficits; E78.5 Hyperlipidemia, unspecified; Z79.02 Long term (current) use of antithrombotics/antiplatelets; Z79.82 Long term (current) use of aspirin; Z79.4 Long term (current) use of insulin; Z79.899 Other long term (current) drug therapy; Z91.048 Other nonmedicinal substance allergy status
CPT/HCPCS: 10060; 99283-25

== ENCOUNTER 2025-11-11 01:42 | Emergency (ER) | payer OTHER ==
[~2025-11-11] VITALS: Ht 193 cm; Wt 131.5 kg
[~2025-11-11 01:42] MED LIST changes: +DOXY100 PO
[2025-11-11 02:13] LABS: BASOPHILS ABSOLUTE AUTO 0.04 K/mm3 (0.00-0.23); BASOPHILS PERCENT AUTO 1 % (0-2); EOSINOPHILS ABSOLUTE AUTO 0.21 K/mm3 (0.00-0.68); EOSINOPHILS PERCENT AUTO 5 % (0-6); Hematocrit 34.6 % (37.0-53.0); Hemoglobin 11.4 g/dL (13.5-17.5); IMMATURE GRAN ABSOLUTE AUTO 0.01 K/mm3 (0.00-0.10); IMMATURE GRAN PERCENT AUTO 0 % (0-1); LYMPHOCYTES ABSOLUTE AUTO 0.96 K/mm3 (0.84-5.20); LYMPHOCYTES PERCENT AUTO 20 % (21-46); MONOCYTES ABSOLUTE AUTO 0.64 K/mm3 (0.16-1.47); MONOCYTES PERCENT AUTO 14 % (4-13); Mean Corpuscular HGB Conc 32.9 g/dL (31.5-36.5); Mean Corpuscular Volume 101 fL (80-100); NEUTROPHILS ABSOLUTE AUTO 2.85 K/mm3 (1.96-9.15); NEUTROPHILS PERCENT AUTO 61 % (41-73); NRBC ABSOLUTE 0.00 K/mm3 (0.00-0.02); NRBC Auto 0.0 /100 WBC (0.0-0.2); Platelet Count 153 K/mm3 (150-400); RDW Coefficient Variation 14.6 % (11.7-14.2); RDW Standard Deviation 53.6 fL (35.1-46.3)
[2025-11-11 02:34] LABS: Alanine Aminotransfer (ALT/SGP 30.0 U/L (12-78); Albumin, Blood 3.2 g/dL (3.4-5.0); Albumin/Globulin Ratio 0.9 (0.8-1.8); Anion Gap 11.0 mmol/L (3-11); Aspartate Aminotrans (AST/SGOT 26.0 U/L (12-37); Bilirubin, Total 0.5 mg/dL (0.1-1.0); Blood Urea Nitrogen 38.0 mg/dL (8-24); CO2, Blood 28.0 mmol/L (21-32); Calcium, Blood 8.9 mg/dL (8.5-10.1); Chloride, Blood 96.0 mmol/L (98-108); Creatinine, Blood 7.27 mg/dL (0.60-1.20); Globulin, Blood 3.7 g/dL (2.2-4.0); Glucose, Blood 177.0 mg/dL (70-99); Potassium, Blood 5.0 mmol/L (3.5-5.5); Sodium, Blood 130.0 mmol/L (136-145); Total Protein, Blood 6.9 g/dL (6.4-8.2)
[2025-11-11 07:30] VITALS: BP 125/41
== END 2025-11-11 08:22 | disposition home or self-care (01) ==
LOC: ER 01:42
PROVIDERS: Emergency Medicine
DX: L40.9 Psoriasis, unspecified (principal); I13.2 Hypertensive heart and chronic kidney disease with heart failure and with stage 5 chronic kidney disease, or end stage renal disease; I50.9 Heart failure, unspecified; N18.6 End stage renal disease; G47.33 Obstructive sleep apnea (adult) (pediatric); R78.5 Finding of other psychotropic drug in blood; Z86.73 Personal history of transient ischemic attack (TIA), and cerebral infarction without residual deficits; Z91.048 Other nonmedicinal substance allergy status; Z79.82 Long term (current) use of aspirin; Z79.02 Long term (current) use of antithrombotics/antiplatelets; Z79.4 Long term (current) use of insulin; Z79.899 Other long term (current) drug therapy
CPT/HCPCS: 80053; 85025; 93005; 93010; 99283-25; A9270